=== PATIENT | female | born 1945 | race Caucasian/White ===

== ENCOUNTER 2018-02-22 10:09 | Emergency (ER) | payer MEDICARE, OTHER, SELFPAY ==
[2018-02-22 10:24] VITALS: BP 129/72; PULSE 75; RESP 13; TEMP 36.4; O2SAT 100; BMI 23.5
--- NOTE | 2018-02-22 10:46 | DI.RAD.S_ITS ---
PROCEDURE: XR CHEST 1V INDICATIONS: chest pain TECHNIQUE: One view of the chest was acquired. COMPARISON: [facility], , CHEST 2 VIEW, 03/29/2012, 8:55. FINDINGS: Surgical changes and devices: Cervical fixation hardware is partially visualized and grossly intact. Lungs and pleura: No pleural effusions or pneumothorax. Lungs are clear. Mediastinum: Mediastinal contours appear normal. Heart size is normal. Bones and chest wall: No suspicious bony lesions. Overlying soft tissues appear unremarkable. IMPRESSION: No acute cardiopulmonary findings. Dictated by: Aria Blanca M.D. on 02/22/2018 at 11:18 Approved by: Aria Blanca M.D. on 02/22/2018 at 11:19
--- NOTE | 2018-02-22 10:53 | ED_ITS ---
HPI - Chest Pain General Chief Complaint: Chest Pain Stated Complaint: CHEST PAIN Time Seen by Provider: 02/22/18 10:52 Source: patient Mode of arrival: ambulatory Limitations: no limitations History of Present Illness HPI narrative: 72-year-old female with a history of anxiety and hypothyroidism presents with 1 week of epigastric chest pain that is not going away. It is intermittent and nothing she does including eating, exerting herself, or moving makes the pain worse. Nothing makes the pain better. She takes lansoprazole twice daily and this has not helped her pain. She notes that 5 weeks ago she abruptly stopped her Ativan and her primary care provider has discontinued the medication. She denies associated shortness of breath or nausea. She admits to diaphoresis since she discontinued her Ativan. She has a history of cholecystectomy. No history of pancreatitis. She notes a history of atrial fibrillation that spontaneously resolved and happened years ago after a major surgery on her back. There has been no recurrence. Pain is currently rated at a 2/10. Related Data Home Medications Medication Instructions Recorded Confirmed levothyroxine [Synthroid] 0.05 mg PO QDAY #0 08/31/17 02/22/18 buspirone 15 mg PO BID 02/22/18 02/22/18 duloxetine [Cymbalta] 60 mg PO DAILY 02/22/18 02/22/18 hydroxyzine pamoate 1 dose PO Q8H PRN 02/22/18 02/22/18 lansoprazole [Prevacid] 30 mg PO DAILY 02/22/18 02/22/18 oxycodone-acetaminophen 1 tab PO Q8H PRN MDD 3 02/22/18 02/22/18 zolpidem 1 dose PO BEDTIME 02/22/18 02/22/18 Allergies Allergy/AdvReac Type Severity Reaction Status Date / Time Sulfa (Sulfonamide Allergy Intermediate RASH Unverified 12/28/17 12:58 Antibiotics) [SULFA (SULFONAMIDE ANTIBIOTICS)] Review of Systems Review of Systems All systems reviewed & are unremarkable except as noted in HPI and below Constitutional Denies chills, Denies fever(s), Denies lethargy and Denies weakness Eyes Denies change in vision, Denies eye discharge, Denies irritation and Denies loss of vision ENT Ears, Nose, Mouth, and Throat: Denies change in voice, Denies neck pain and Denies sore throat Cardiovascular Reports chest pain, Reports diaphoresis, Denies irregular heart rhythm, Denies lightheadedness, Denies palpitations, Denies dyspnea, Denies dyspnea on exertion and Denies orthopnea Respiratory Denies cough, Denies dyspnea, Denies dyspnea on exertion and Denies wheezing Gastrointestinal Gastrointestinal: Denies abdominal pain, Denies change in bowel habits, Denies diarrhea, Denies nausea and Denies vomiting Genitourinary Denies hematuria, Denies flank pain, Denies urinary incontinence and Denies urinary urgency Musculoskeletal Denies neck pain Integumentary/Breasts Denies pruritus, Denies erythema, Denies rash and Denies wounds Neurologic Denies confusion, Denies loss of vision and Denies weakness Psychiatric Denies anxiety, Denies confusion, Denies depression, Denies homicidal ideation and Denies suicidal ideation Endocrine Denies palpitations Hematologic/Lymphatic Denies easy bruising Allergic/Immunologic Denies wheezing PFSH Social History Smoking Status: Current every day smoker Exam Initial Vital Signs Initial Vital Signs: Vital Signs Temperature 97.6 F 02/22/18 10:24 Pulse Rate 75 02/22/18 10:24 Respiratory Rate 13 02/22/18 10:24 Blood Pressure 129/72 H 02/22/18 10:24 Pulse Oximetry 100 02/22/18 10:24 Const General: cooperative and well developed Nutritional Appearance: well nourished Orientation: alert, awake, oriented x3 and not confused [facility] Head: normocephalic and atraumatic Ears: external ears normal and TM's normal bilaterally Nose: external nose normal and No nasal discharge Face and sinus: sinuses nontender, face symmetric, no sinus tenderness and No dry mucous membranes Mouth: oral mucosae normal and moist mucous membranes Teeth and gingiva: dentition normal Throat: tonsils normal and uvula midline Eyes General: appearance normal, both eyes and all related structures Eyelids: eyelids normal Conjunctivae: conjunctivae normal Sclera: sclerae normal Pupils: PERRL EOM: EOM intact bilaterally Neck Neck: normal visual inspection, trachea midline, No lymphadenopathy, No midline deformity and No JVD Lymphatic: No lymphedema Chest Chest: normal inspection of the chest Resp Effort & Inspection: normal respiratory effort, able to speak in complete sentences, no respiratory distress and no use of accessory muscles Auscultation: clear to auscultation bilaterally, no rales, no rhonchi and no wheezes Cardio Rate: regular rate Rhythm: regular rhythm Heart Sounds: no click, no gallops, murmur (Mild 2/6 systolic murmur heard best at the left lower sternal border) and no rubs Pulses: normal peripheral pulses GI Inspection: non-distended Palpation: soft, no hepatosplenomegaly, No guarding, No pulsatile mass and No tender Auscultation: normal bowel sounds Back/Spine/Pelvis Back: No CVA tenderness Cervical Spine: cervical ROM normal and No pain with cervical ROM Thoracic/Lumbar Spine: thoracic and lumbar spine normal to inspection Skin General: no rashes or lesions noted, No jaundice and No petechiae Neuro General: alert, oriented x3, gait normal and no focal motor deficits Speech: speech normal Extrem General: full ROM, no clubbing, cyanosis or edema, no pedal edema and no calf tenderness Psych Appearance: well kempt Mental Status: mental status grossly normal Attitude: cooperative Thought Content: normal and suicidality Judgment: judgment good Course Orders Ordered: ED Orders 02/22/18 10:39 Complete Blood Count AUTO DIFF Stat Comprehensive Metabolic Panel Stat Lipase Stat Troponin with CK Cardiac Panel Stat 02/22/18 10:46 XR chest 1V Stat Discontinued Medications Al Hydrox/Mg Hydrox/Simethicone 20 ml/ Lidocaine HCl 15 ml 0 ml PO NOW ONE Stop: 02/22/18 11:29 Last Admin: 02/22/18 11:44 Dose: 35 ml Lorazepam (Ativan) 0.5 mg PO NOW ONE Stop: 02/22/18 11:29 Last Admin: 02/22/18 11:44 Dose: Not Given Vital Signs - 8 hr 02/22/18 10:24 02/22/18 11:09 02/22/18 11:49 Temperature 97.6 F Pulse Rate 75 74 68 Respiratory Rate 13 26 H 16 Blood Pressure 129/72 H Blood Pressure [Right Arm] 126/62 H 124/74 H Pulse Oximetry 100 99 100 MDM - Chest Pain Differential Diagnosis Likely fracture of rib, pneumothorax, stable angina, unstable angina pectoris, atypical chest pain, st elevation myocardial infarction, costochondritis and chest pain Medical Records Data Attestation: I reviewed the patient's medical records. Lab Data Attestation: I reviewed the patient's lab results. Result diagrams: 02/22/18 10:39 02/22/18 10:39 Lab Results 02/22/18 02/22/18 Range/Units 10:39 10:39 WBC 5.1 (4.5-11.0) X10^3/uL RBC 4.15 (4.0-5.2) X10^6/uL Hgb 13.5 (12.0-16.0) g/dL Hct 39.2 (36-46) % MCV 94.6 (80-100) fL MCH 32.5 (26-34) PG MCHC 34.3 (30-36) % RDW 12.7 (11.6-14.8) % Plt Count 294 (150-400) X10^3/uL Neut % (Auto) 65.1 (50-75) % Lymph % (Auto) 24.4 L (25-40) % Fleming % (Auto) 8.0 (3-14) % Eos % (Auto) 1.8 L (2-4) % Baso % (Auto) 0.7 (0-2) % Neut # (Auto) 3300 (2690-7504) /uL Sodium 143 (137-145) mmol/L Potassium 4.0 (3.4-5.1) mmol/L Chloride 105 (98-107) mmol/L Carbon Dioxide 25 (22-32) mmol/L BUN 14 (7-17) mg/dL Creatinine 0.50 L (0.52-1.04) mg/dL Estimated GFR > 60.0 (>60) mL/min BUN/Creatinine Ratio 28.0 H (6-22) Glucose 158 H (80-110) mg/dL Calcium 9.8 (8.4-10.2) mg/dL Total Bilirubin 0.4 (0.2-1.3) mg/dL AST 23 (14-36) IU/L ALT 31 (9-52) IU/L Alkaline Phosphatase 97 (38-126) U/L Total Creatine Kinase 47 (30-135) U/L Troponin I < 0.012 (0.01-0.034) ng/mL Total Protein 7.4 (6.3-8.2) g/dL Albumin 4.4 (3.5-5.0) g/dL Globulin 3.0 (1.7-4.1) g/dL Albumin/Globulin Ratio 1.5 (1.0-2.8) Lipase 38 (23-300) U/L Imaging Data Chest x-ray: Radiologist's impression: PROCEDURE: XR CHEST 1V INDICATIONS: chest pain TECHNIQUE: One view of the chest was acquired. COMPARISON: [facility], , CHEST 2 VIEW, 03/29/2012, 8:55. FINDINGS: Surgical changes and devices: Cervical fixation hardware is partially visualized and grossly intact. Lungs and pleura: No pleural effusions or pneumothorax. Lungs are clear. Mediastinum: Mediastinal contours appear normal. Heart size is normal. Bones and chest wall: No suspicious bony lesions. Overlying soft tissues appear unremarkable. IMPRESSION: No acute cardiopulmonary findings. Dictated by: Aria Blanca M.D. on 02/22/2018 at 11:18 Approved by: Aria Blanca M.D. on 02/22/2018 at 11:19 ECG Data Attestation: I personally reviewed and interpreted this ECG as follows: Prior ECG tracings: available for review Interpretation: EKG performed at 10:23 a.m. shows sinus rhythm with a rate of 74. No ST elevation or depression. No T-wave abnormalities. Normal EKG. No signs of ischemia. MDM Narrative Medical decision making narrative: Her heart score is 3 with 2 points for age and 1 point for a family history of heart disease. She has never been a smoker. Her EKG is normal. Her chest x-ray is also normal. Lipase and LFTs are normal. Troponin is negative and she has had ongoing symptoms for 10 days. Advised her that she needs to see her primary provider and have a stress test arranged to definitively rule out heart conditions. I do not suspect pulmonary embolism as there is no associated shortness of breath, she is not tachycardic or hypoxic. I suspect anxiety may be playing a role as she was recently taken off her benzodiazepine. She is already on an acid oscar, but did find improvement with the GI cocktail. I advised that she could double her acid oscar dose to twice daily. She was not interested in taking the Ativan I offered her here as she was concerned about withdrawing. I stated to her that withdrawal symptoms would not be expected to last for 5 weeks and I suspect she may be dealing with some underlying anxiety. Given her risk factors she is in need of a stress test in follow-up. Discharge Plan Departure Patient Disposition: Home, Self-Care Clinical Impression: Chest pain Instructions: DI for Chest Pain Activity Restrictions/Additional Instructions: Thank you for trusting us with your care today. No dangerous findings were identified in your emergency department evaluation. You should follow up with your primary care provider within 1 week and discuss a stress test and your anxiety. Continue your acid oscar medication and increase to twice daily dosing. Return to the ER for new or worsening symptoms. Prescriptions: No Action levothyroxine [Synthroid] 50 MCG tablet 0.05 mg PO QDAY Qty: 0 RF: 0 oxycodone-acetaminophen 7.5-325 mg Tablet 1 tab PO Q8H MDD 3 PRN (Reason: Pain, Moderate) RF: 0 buspirone 15 mg Tablet 15 mg PO BID RF: 0 lansoprazole [Prevacid] 30 mg Capsule,Delayed Release(Dr/Ec) 30 mg PO DAILY RF: 0 zolpidem 10 mg Tablet 1 dose PO BEDTIME RF: 0 duloxetine [Cymbalta] 60 mg Capsule,Delayed Release(Dr/Ec) 60 mg PO DAILY RF: 0 hydroxyzine pamoate 25 mg Capsule 1 dose PO Q8H PRN (Reason: Nausea) RF: 0
[2018-02-22 10:56] LABS: Add Manual Diff / Slide Review NO; Basophils Percent Auto 0.7 % (0-2); Eosinophils Percent Auto 1.8 % (2-4); Hematocrit 39.2 % (36-46); Hemoglobin 13.5 g/dL (12.0-16.0); Lymphocytes Percent Auto 24.4 % (25-40); Mean Corpuscular HGB Conc 34.3 % (30-36); Mean Corpuscular Hemoglobin 32.5 PG (26-34); Mean Corpuscular Volume 94.6 fL (80-100); Neutrophils Absolute Auto 3300 /uL (3000-5900); Neutrophils Percent Auto 65.1 % (50-75); Platelet Count 294 X10^3/uL (150-400); Red Blood Cell Count 4.15 X10^6/uL (4.0-5.2); Red Cell Distribution Width 12.7 % (11.6-14.8); White Blood Cell Count 5.1 X10^3/uL (4.5-11.0)
[2018-02-22 11:09] VITALS: BP 126/62; PULSE 74; RESP 26; O2SAT 99
[2018-02-22 11:12] LABS: Alanine Aminotransferase 31 IU/L (9-52); Albumin 4.4 g/dL (3.5-5.0); Albumin Globulin Ratio 1.5 (1.0-2.8); Alkaline Phosphatase 97 U/L (38-126); Aspartate Aminotransferase 23 IU/L (14-36); Bilirubin Total 0.4 mg/dL (0.2-1.3); Blood Urea Nitrogen 14 mg/dL (7-17); Calcium 9.8 mg/dL (8.4-10.2); Carbon Dioxide 25 mmol/L (22-32); Chloride 105 mmol/L (98-107); Creatine Kinase 47 U/L (30-135); Estimated Glomerular Filt Rate > 60.0 mL/min (>60); Glucose 158 mg/dL (80-110); HEMOLYSIS < 15 (0-50); Lipase 38 U/L (23-300); Sodium 143 mmol/L (137-145); Total Protein 7.4 g/dL (6.3-8.2)
[2018-02-22 11:33] LABS: Troponin I < 0.012 ng/mL (0.01-0.034)
[2018-02-22] MEDS: MAG HYDROX/ALUMINUM/SIMETH SUS 20 ML, LIDOCAINE VISCOUS 2% 15 ML PO (11:44)
--- NOTE | 2018-02-22 11:44 | PC.NURSE ---
pt refused ativan at this time, pt apologitic, she has changed her mind/
[2018-02-22 11:49] VITALS: BP 124/74; PULSE 68; RESP 16; O2SAT 100
[2018-02-22 12:31] VITALS: BP 110/72; PULSE 69; RESP 16; O2SAT 100
== END 2018-02-22 12:45 | disposition home or self-care (01) ==
PROVIDERS: Emergency Provider Emergency Medicine; PCP Nurse Practitioner
DX: R07.89 Other chest pain (principal)
CPT/HCPCS: 36591; 71045; 80053; 82550; 82553; 83690; 84484; 85025; 93005; 99283; 99285

== ENCOUNTER → 2018-12-08 13:58 | Outpatient (CLI) | payer MEDICARE, OTHER, SELFPAY ==
--- NOTE | 2018-12-08 14:22 | DI.RAD.S_ITS ---
PROCEDURE: XR CHEST 2V INDICATIONS: Cough TECHNIQUE: 2 views of the chest were acquired. COMPARISON: [facility], CR, XR CHEST 1V, 02/22/2018, 10:50. FINDINGS: Surgical changes and devices: Cervical fixation plate. Lungs and pleura: Lungs are clear. No pleural effusions or pneumothorax. Mild hyperexpansion is present suggestive of COPD. Mediastinum: Mediastinal contours are normal. Heart size is normal. Bones and chest wall: No suspicious bony abnormalities. Soft tissues appear unremarkable. IMPRESSION: No acute pulmonary process. Dictated by: Mansi Fregoso M.D. on 12/08/2018 at 14:48 Approved by: Mansi Fregoso M.D. on 12/08/2018 at 14:48
[2018-12-08 14:29] LABS: Influenza A and B by PCR Rapid Negative (Negative)
== END ==
PROVIDERS: PCP Nurse Practitioner; Visit Provider Physician Assistant
DX: R68.89 Other general symptoms and signs (principal); R05 Cough
CPT/HCPCS: 71046; 87400

== ENCOUNTER → 2019-01-10 12:57 | Outpatient (CLI) | payer MEDICARE, OTHER, SELFPAY ==
[2019-01-10 13:56] LABS: Add Manual Diff / Slide Review NO; Basophils Absolute Auto 100 /uL (0-100); Basophils Percent Auto 1.2 % (0-2); Eosinophils Absolute Auto 200 /uL (0-450); Eosinophils Percent Auto 3.8 % (2-4); Hemoglobin 13.6 g/dL (12.0-16.0); Lymphocytes Absolute Auto 1100 /uL (1100-4500); Mean Corpuscular HGB Conc 34.9 % (30-36); Mean Corpuscular Hemoglobin 32.9 PG (26-34); Mean Corpuscular Volume 94.4 fL (80-100); Monocytes Absolute Auto 400 /uL (0-900); Monocytes Percent Auto 8.8 % (3-14); Neutrophils Absolute Auto 2800 /uL (1500-7000); Neutrophils Percent Auto 61.2 % (50-75); Platelet Count 303 X10^3/uL (150-400); Red Blood Cell Count 4.14 X10^6/uL (4.0-5.2); Red Cell Distribution Width 13.7 % (11.6-14.8); White Blood Cell Count 4.6 X10^3/uL (4.5-11.0)
[2019-01-10 14:12] LABS: Hemoglobin A1C% w Est Avg Glu 5.2 % (4.0-6.0)
[2019-01-10 14:29] LABS: Alanine Aminotransferase 16 IU/L (9-52); Albumin 4.3 g/dL (3.5-5.0); Albumin Globulin Ratio 1.7 (1.0-2.8); Alkaline Phosphatase 104 U/L (38-126); Aspartate Aminotransferase 20 IU/L (14-36); BUN Creatinine Ratio 26.7 (6-22); Bilirubin Total 0.2 mg/dL (0.2-1.3); Blood Urea Nitrogen 16 mg/dL (7-17); Calcium 9.5 mg/dL (8.4-10.2); Carbon Dioxide 29 mmol/L (22-32); Chloride 101 mmol/L (98-107); Cholesterol 165 mg/dL (140-199); Estimated Glomerular Filt Rate > 60.0 mL/min (>60); Globulin 2.6 g/dL (1.7-4.1); Glucose 95 mg/dL (80-110); HDL Cholesterol 65 mg/dL (40-60); HEMOLYSIS 20 (0-50); LDL Cholesterol Calculated 82 mg/dL (<100); Potassium 4.9 mmol/L (3.4-5.1); Sodium 138 mmol/L (137-145); Total Protein 6.9 g/dL (6.3-8.2); Triglycerides 90 mg/dL (35-150)
[2019-01-10 14:59] LABS: Thyroid Stimulating Hormone 1.32 uIU/mL (0.47-4.68)
[2019-01-10 20:42] LABS: Vitamin D 25 Hydroxy (D3) 34.5 ng/mL (30.0-100.0)
== END ==
PROVIDERS: PCP Nurse Practitioner; Visit Provider Nurse Practitioner
DX: E55.9 Vitamin D deficiency, unspecified (principal); Z00.00 Encounter for general adult medical examination without abnormal findings; R73.09 Other abnormal glucose
CPT/HCPCS: 36415; 80053; 80061; 82306; 83036; 84443; 85025

== ENCOUNTER → 2019-02-27 12:21 | Outpatient (CLI) | payer MEDICARE, OTHER, SELFPAY | PROVIDERS: PCP Nurse Practitioner; Visit Provider Orthopaedic Surgery | DX: Z01.818 Encounter for other preprocedural examination (principal) | CPT/HCPCS: 93005 ==

== ENCOUNTER 2019-03-28 10:10 | Inpatient (IN) | payer MEDICARE, OTHER, SELFPAY ==
[2019-03-14 12:46] VITALS: BMI 25.9
[2019-03-28] VITALS (13 sets, daily range): BP systolic 113–131; BP diastolic 50–75; PULSE 80–99; RESP 12–18; TEMP 35.9–36.4; O2SAT 90–100; BMI 25.9
--- NOTE | 2019-03-28 | DI.RAD.S_ITS ---
PROCEDURE: XR PELVIS 1-2V INDICATIONS: LEFT HIP TOTAL ANTERIOR TECHNIQUE: Intra-operative view of the pelvis and hip acquired. COMPARISON: [facility], CR, XR PELVIS 1 OR 2VW, 12/15/2016, 13:56. FINDINGS: Bones: Intraoperative devices prior to placement of arthroplasty prostheses are in expected positions. No fractures or suspicious bony lesions. Soft tissues: Overlying surgical retractors are present, along with other intraoperative changes. IMPRESSION: Left hip arthroplasty. Dictated by: Silva Delgado M.D. on 03/28/2019 at 16:34 Approved by: Silva Delgado M.D. on 03/28/2019 at 16:35
--- NOTE | 2019-03-28 06:00 | DI.RAD.S_ITS ---
PROCEDURE: XR HIP W PEL IF DONE LT 2V INDICATIONS: post op MIQUEL TECHNIQUE: AP pelvis and lateral view of the left hip acquired. COMPARISON: [facility], SCAR, XR PELVIS 1-2V, 03/28/2019, 14:47. FINDINGS: Bones: Patient is status post left hip arthroplasty, with hardware components in expected positions. The hip joint appears congruent. The visualized bony structures appear intact. Soft tissues: Overlying postoperative changes are noted. No suspicious soft tissue densities. IMPRESSION: Normal postoperative examination. Dictated by: Gio Stacy M.D. on 03/28/2019 at 16:18 Approved by: Gio Stacy M.D. on 03/28/2019 at 16:19
[2019-03-28] MEDS: VANCOMYCIN 1,000 MG/200 ML PIGGYBACK 200 MG IV (11:33)
[2019-03-28] MEDS: MELOXICAM 7.5 MG TABLET 15 MG PO (11:37)
[2019-03-28] MEDS: PREGABALIN 75 MG CAPSULE PO (11:38)
[2019-03-28] MEDS: ACETAMINOPHEN 325 MG TABLET 975 MG PO ×2 (11:38→21:03)
[2019-03-28] MEDS: LACTATED RINGERS 1,000 ML 42 ML IV (11:39)
--- NOTE | 2019-03-28 12:38 | PM.PREOP ---
Pre-operative Note Interval Note History & Physical reviewed/Exam performed by Physician: Yes Changes to H&P: No
--- NOTE | 2019-03-28 12:41 | P.OP_ITS ---
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 Non-operative management has failed and the patient has requested total hip replacement. The risks, benefits and alternatives to surgery were discussed with the patient prior to proceeding. Risks discussed included, but were not limited to, failure to relieve pain, leg length discrepancy, dislocation, stiffness, infection, nerve damage, deep venous thrombosis, pulmonary embolism, stroke, coma, heart attack, permanent paralysis and , as well as the potential need for eventual revision of the prosth etic. Surgeon: Haylee Young Health Care Specialist: Brielle Lee Anesthesia Type: General and Spinal Operative Notes Findings: Severe left hip arthritis with protrusio, some softening of the acetabular, acceptable stability leg length and offset Closure Type: primary Specimen(s): none sent Prosthetic devices, grafts, tissues, transplants, or devices: Young [employer]hew size 50 R3 cup with 120 mm screw, size 3 standard anthology, 32+ 0 head, 32 by 50 liner Estimated Blood Loss (mL): 250 Blood products transfused: none Procedure in detail: The patient was brought to the operating room. Patient was carefully positioned in the supine position. Time-out was performed and antibiotics were given. Anesthesia was induced. She was positioned in the on the table in order to allow hyperextension of the hip. The left lower extremities was prepped and draped in a standard sterile fashion. An anterior left hip incision was made 1 fingerbreadth lateral to the anterior superior iliac spine and extended distally towards the greater trochanter. Dissection was carried out through skin and subcutaneous tissues. The skin and subcutaneous tissues were carefully injected with Lidocaine with epi. Superficial hemostasis was achieved. The fascia over the tensor fascia radha was defined and incised with a knife. Two Allis clamps were used to grasp the fascia. Tensor fascia radha was retracted laterally. A gelpi retractor was placed. Dissection was carried out down along the neck. The circumflex vessels were carefully identified and cauterized with the Aqua Mantis. There was good visualization of the femoral neck. A Cobra was placed superior to the neck and the gluteus fibers were carefully stripped from that superior aspect of the capsule. A 2nd retractor was placed along the inferior aspect of the neck. The rectus insertion along the capsule was partially released. A 3rd retractor that was then gently placed over the rim of the acetabulum under the rectus. Capsule was carefully incised and released from the intertrochanteric line circumferentially superior to the mid sagittal line and inferiorly to the mid sagittal line until the lesser trochanter was palpable. A tag stitch was placed both in the superior and inferior limb of the capsular insertion. Along the acetabulum capsule was also released up to the mid sagittal 12:00 position. A portion of the labrum was resected. A saw was used to perform an osteotomy at the level of the intertrochanteric line and the junction of the superior femoral neck leaving approximately 1 finger breath of residual inferior neck above the lesser trochanter. A 2nd cut was made along the femoral neck at the base of the head and a napkin ring of neck was removed. Corkscrew was placed in the femoral head and the head was removed. She had a hypertrophied ligamentum teres. Retractors were then repositioned around the acetabulum. Residual labrum was resected and additional osteophytes were removed. A reamer that was 4 mm below the templated size was placed by hand in the acetabulum and it was reamed to centralize the acetabulum. It was then reamed up to 2 under the templated size and fluoroscopy was brought in to confirm the position of the reaming and depth of reaming. I reamed 1 under the anticipated size. A trial cup was placed and noted that it was appropriately sized and fluoroscopy confirmed position and depth. The component was open and inserted without difficulty fluoroscopic imaging was used to confirm that the cup had been adequately seated and was well positioned. A single screw was used to further stabilize the cup. Neutral poly liner was placed. The cup was tested and noted to be stable. Attention was then directed to the femur. The femur was gently hyperextended additional capsular release was performed as needed in order to allow adequate visualization of the proximal femur with elevation of the femur. Patient was placed in a hyperextended slightly adducted position with maximum external rotation. Box osteotome was used to check for any residual neck as well as scl erotic bone along the trochanter. [place] pepper was placed in the femur. Additional broaching was performed. Canal finder was used to determine the alignment of the canal and position. Size 1 broach was placed. The canal was then appropriately broached up to the templated size as long as there was adequate stability of the broach and serial advancement of the broach without excessive impingement. Specific attention was directed at avoiding varus attempting to direct the distal aspect of the broach more anteriorly and avoiding excessive anteversion. Trial reduction showed acceptable range of mo tion, good stability, no posterior impingement, temple of leg length and appropriate lateral shuck. I also hyperflexed the hip and checked that there was no impingement anteriorly and there was good stability with flexion, abduction and internal rotation. Final neutral poly was placed without difficulty. Marcaine and Exparel were injected.. The stem was placed without difficulty. Repeat trial reduction and x-ray showed acceptable overall position, length, and no evidence of the femoral fracture. Final head was placed. Wound was meticulously irrigated with normal saline. The hip was reduced and additional Exparel and Marcaine were injected. The capsule was closed with interrupted nonabsorbable sutures. The fascia of the tensor was closed with interrupted and running Vicryl. No drain was placed. Any tensor fascia radha muscle that appeared to be contused or injured which was a minimal amount was carefully resected. Capsule around the tensor was injected with Exparel and Marcaine. The skin was closed with barbed stitches for the subcutaneous tissue and skin. We also used surgical glue. The wound was dressed sterilely. Brief Betadine soak was also used and was meticulously irrigated with normal saline. Patient was transferred to recovery room in satisfactory condition. Complications: none Condition: stable Disposition: Acute Care Plan for aftercare: The patient will be maintained on a standard total hip replacement protocol with weight bearing as tolerated and anterior hip precautions. The patient will receive Aspirin and sequential compression devices for DVT prophylaxis. The patient will be discharged home when safe for the home environment.
[2019-03-28] MEDS: CEFAZOLIN 2 GM/100 ML FROZ.PIGGY IV ×2 (13:08→21:08)
[2019-03-28] MEDS: BUPIVACAINE 0.25% W/ EPI 30 ML VIAL 60 ML INJ (13:47)
[2019-03-28] MEDS: BUPIVACAINE LIPOSOME 266 MG/20 ML VIAL INJ (13:47)
[2019-03-28] MEDS: POVIDONE-IODINE 15 ML, SODIUM CHLORIDE 0.9% 250 ML TOP (13:48)
[2019-03-28] MEDS: TRANEXAMIC ACID 1,000 MG VIAL 2000 MG INJ ×2 (13:49→16:27)
[2019-03-28] MEDS: LIDOCAINE 1% W/EPI INJ 4 ML INJ (13:53)
--- NOTE | 2019-03-28 14:00 | SUR.OPER ---
patient voided prior to coming to OR
[2019-03-28] MEDS: fentaNYL 100 MCG/2 ML INJ 50 MCG IV ×2 (17:15→17:24)
[2019-03-28] MEDS: LACTATED RINGERS 1,000 ML 125 ML IV (20:41)
[2019-03-28] MEDS: NALOXONE 0.4 MG/ML VIAL 0.1 MG IV (20:45)
[2019-03-28] MEDS: ASPIRIN EC 81 MG TABLET PO (21:04)
[2019-03-28] MEDS: BUSPIRONE 5 MG TABLET 10 MG PO (21:04)
[2019-03-28] MEDS: DOCUSATE 100 MG CAPSULE PO (21:05)
[2019-03-28] MEDS: DICYCLOMINE 10 MG CAPSULE 20 MG PO (21:05)
--- NOTE | 2019-03-28 21:29 | PC.NURSE ---
Addendum entered by Sol Gomez R.N. 03/29/19 00:44: Stacy Beverly RN coordinator to inform this information writer was about to medicate pt with narcan. Orders were DC on NOV, called Dr. Thorne, she came right up to floor and placed orders, this information writer activated the hold Que orders, medicated pt with 1/10 (0.04mg) narcan. ordered 0.4mg narcan to be instilled into a 10ml syringe of NS as to admin 1/10 of medication at a time. Pt became alert and able to keep O2 in high 90's with 2L O2 nc. Pt also able to converse, answer questions and maintain O2 in 90's with 2Lnc. provided pt with cheese and crackers, and milk per request. LFA LR @ 125, SCD's on. 2100 trazadone medication held r/t oversedation. Bed alarm on. Addendum entered by Slo Gomez R.N. 03/28/19 21:34: On arrival from this writers break, pt desating to 60-78% 2L O2, placed on 7L nc and placed canula in mouth since she was mouth breathing, and replaced to nares. HOB semi fowlers and lightly shaking Lt shoulder of pt to awake enough to take breaths. Ox increased to high 80's, called RT and Original Note: 1800- pt arrived to room 213 from PACU via bed. Alert to name and Neftaly who is at bedside. Pt drowsy, but able to make need known. Provided pt with water, 1/2 sandwich, and cran juice. Bed high fowlers and eating sand. Cont O2 monitoring on with SpO2 92-94% 2L nc. Right anterior hip aquacell drsg CDI. CMS+ PP+. denies pain and nausea at this time. LFA SL. Bed alarm on. Awaiting orders.
--- NOTE | 2019-03-28 21:37 | P.PN_ITS ---
Subjective Date Patient Seen: 03/28/19 Time Patient Seen: 21:00 Interval history: Called by RN with concern about postop somnolence in 73 yo female who is s/p anterior approach MIQUEL with spinal/general anesthesia. She received an intrathecal dose of Duramorph intraoperatively; and she was given 100mcg of fentanyl IV for pain in the PACU. She is on continuous O2 Sat monitoring. Upon my arrival she was notably quite sleepy and somewhat slow to arouse, but did respond appropriately. She was on O2 per NC at 2 LPM with saturations >95%. (The RN did report one transient dip in O2 Sat below 70% prior to my arrival). She was given one dose of Narcan 0.04mg by me and was more animated afterward. Intrathecal Narcotic orders were reentered and confirmed. The RN Relay Associate was informed. The patient was stable upon my departure. Exam Vital Signs (past 8 hours): - 03/28/19 17:02 03/28/19 17:06 03/28/19 17:11 Temperature 97.0 F L Pulse Rate 84 85 83 Respiratory Rate 16 12 12 Blood Pressure 124/72 113/66 115/61 Pulse Oximetry 98 95 100 03/28/19 17:22 03/28/19 17:26 03/28/19 17:33 Temperature 97.1 F L Pulse Rate 85 85 83 Respiratory Rate 12 12 12 Blood Pressure 128/50 L 113/75 125/67 Pulse Oximetry 95 93 95 03/28/19 17:45 03/28/19 17:50 03/28/19 18:00 Temperature 97.0 F L 97.0 F L 97.0 F L Pulse Rate 99 H 83 80 Respiratory Rate 14 16 16 Blood Pressure 122/74 122/63 122/60 Pulse Oximetry 99 93 93 03/28/19 18:30 03/28/19 19:00 03/28/19 20:00 Temperature 96.7 F L 97.5 F L Pulse Rate 80 82 86 Respiratory Rate 18 16 Blood Pressure 117/56 L 131/65 125/70 Pulse Oximetry 90 L 99 92 Oxygen Delivery Method Room Air Oxygen Flow Rate 2 Quality VTE Deep Vein Thrombosis/Pulmonary Embolism Present on Admission: No
[2019-03-29 00:30] VITALS: BP 102/54; PULSE 85; RESP 16; TEMP 36.2; O2SAT 97
--- NOTE | 2019-03-29 02:24 | PC.NURSE ---
Sat in the [facility] for approx. 20 mins. was not able to void. Bladder scanned noted 678 ml. I & O cath. done & 700 cc out of dark yellow urine. Pt. denies any pain at this time, will monitor.
[2019-03-29] MEDS: CEFAZOLIN 2 GM/100 ML FROZ.PIGGY IV (04:53)
[2019-03-29] MEDS: LACTATED RINGERS 1,000 ML 125 ML IV (04:55)
[2019-03-29 05:00] VITALS: BP 110/54; PULSE 81; RESP 16; TEMP 36.4; O2SAT 99
--- NOTE | 2019-03-29 06:29 | PC.NURSE ---
Requested to turn off her SCD's for now. Also requested to her sleep this morning & declined to take her 0600 dose of Synthroid states I don't my Thyroid pill this early. Denies any pain all shift, when asked her pain scale she rated her pain @ 1-2/10. Will cont. POC & monitor.
[2019-03-29 06:34] LABS: Hematocrit 31.8 % (36-46); Hemoglobin 10.7 g/dL (12.0-16.0)
[2019-03-29] MEDS: LEVOTHYROXINE 50 MCG TABLET PO (06:57)
[2019-03-29] MEDS: ACETAMINOPHEN 325 MG TABLET 975 MG PO ×3 (08:54→21:50)
[2019-03-29] MEDS: ARIPiprazole 10 MG TABLET 5 MG PO (08:55)
[2019-03-29] MEDS: MELOXICAM 7.5 MG TABLET 15 MG PO (08:56)
[2019-03-29] MEDS: ASPIRIN EC 81 MG TABLET PO ×2 (08:56→21:50)
[2019-03-29] MEDS: BUSPIRONE 5 MG TABLET 10 MG PO ×2 (08:56→21:51)
[2019-03-29] MEDS: DOCUSATE 100 MG CAPSULE PO ×2 (08:56→21:51)
[2019-03-29] MEDS: DICYCLOMINE 10 MG CAPSULE 20 MG PO ×3 (08:56→21:51)
[2019-03-29] MEDS: PARoxetine 20 MG TABLET PO (08:56)
[2019-03-29] MEDS: PANTOPRAZOLE 40 MG TABLET PO (08:57)
[2019-03-29 09:00] VITALS: BP 117/46; PULSE 79; RESP 18; TEMP 36.7; O2SAT 96
--- NOTE | 2019-03-29 09:30 | PT.IIE ---
Current Diagnoses Unilateral primary osteoarthritis, left hip (03/28/19) Surgery Performed Operation Date: 03/28/19 12:00 Actual Procedures p Total Hip Arthroplasty/Anterior Approach(Left) - Haylee Young MD Surgical History (Last Updated 03/14/19 @ 13:23 by Yue Schultz RN) History of lumbar fusion (Acute ~2014) Hx of cholecystectomy (Acute) Hx of ovarian cystectomy (Acute) S/P cervical spinal fusion (Acute ~2015) Medical History (Last Updated 03/14/19 @ 13:23 by Yue Schultz RN) Anxiety (Acute) Arthritis (Acute) DJD (degenerative joint disease) (Acute) Depression (Acute) GERD (gastroesophageal reflux disease) (Acute) H/O: hysterectomy (Acute) Hypothyroidism (Acute) Neuropathy (Acute) Osteoarthritis (Acute) Paroxysmal atrial fibrillation (Acute ~2014) Yeast infection (Acute) Yeast infection of the vagina (Acute) Physical Therapy Inpatient Evaluation/Re-Eval M1 PT/OT-IP Prior Functional Status Start: 03/29/19 13:07 Freq: NEEDED Status: Active Protocol: Document 03/29/19 09:30 AB (Rec: 03/29/19 13:20 AB [id number]) Medical Review Prior Functional Status Medical History Reviewed Yes Communication able to make needs known Mobility and Gait pt stated that she is independent with all mobilities and ambulation without AD Social History Household Members spouse Living Arrangements House Number of Floors (Floors) Two Floors Number of Stairs To Enter/Railing? 4 steps to enter without rails 15 steps to get to bedroom level with R rail ascending Home Environment Standard Height Toilet Tub/Shower Home Equipment Four Wheel Walker Straight Cane Raised Toilet Seat w/Armrests Employment Status Retired Additional Social History Comment pt stated that she has an old fashioned claw bath tub and a shower chair will not fit in and cannot put a grab bar on it M2 PT-IP Current Condition Start: 03/29/19 13:07 Freq: NEEDED Status: Active Protocol: Document 03/29/19 09:30 AB (Rec: 03/29/19 13:20 AB [id number]) Physical Therapy Current Condition Current Condition Evaluation Date 03/29/19 Treatment Diagnosis s/p L MIQUEL anterior approach; difficulty in walking Onset Date 03/28/19 Precautions Anterior Hip Precautions No Hip Extension No Hip External Rotation Weight Bearing Status Weight Bearing Status Weight Bear as Tolerated M3 PT-IP Subjective Start: 03/29/19 13:07 Freq: NEEDED Status: Active Protocol: Document 03/29/19 09:30 AB (Rec: 03/29/19 13:20 AB [id number]) Subjective Physical Therapy Visit Type Type Initial Evaluation Visit Start Time 09:30 Visit Stop Time 10:10 Total Visit Minutes 40 Number of MID LEVEL PROJECT MANAGER Visits 0 Physical Therapy Visit Comments Patient Comments pt agreeable to do PT Therapy Pain Assessment Pain When Pain Assessed During Mobility Pain Present Pain Present Pain Reported Location Left Hip Intensity 2 Pain Management Techniques Re-positioning Timing of Activity with Medications M4 PT-IP Mobility and Gait Start: 03/29/19 13:07 Freq: NEEDED Status: Active Protocol: Document 03/29/19 09:30 AB (Rec: 03/29/19 13:20 AB [id number]) PT-Bed Mobility Assessment Rolling Level of Assist Standby Assistance PT-Transfer Assessment Sit to and From Stand Sit to and from Stand Minimal Assistance 1 Person Assistance Use of Upper Extremities Equipment Transfer Assistive Device Gait Belt Front Wheeled Walker Orthotic/Prosthetic Devices or Brace: No Transfers Transfer Destination Toilet Transfer Technique pt ambulated using FWW Transfer Ability Level of Assist Minimal Assistance 1 Person Assistance Use of Upper Extremities Gait Assessment Gait Gait Assistance Required: Minimum Assistance Distance (Feet) 12 Able to Maintain Weight Bearing Status Yes During Gait Assistive Devices Assistive Device Gait Belt Front Wheeled Walker Orthotic/Prosthetic Devices or Brace: No Gait Deviations General Gait Pattern Antalgic Decreased Stride Length Decreased Feet Clearance Factors Limiting Gait Function Factors Limiting Gait Function Decreased Strength Pain Poor Balance Poor Safety Awareness Comments Gait Comments pt requested to use the toilet and completed ambulation using FWW min A and cues. pt requires cues for techniques to maintain hip precautions PT-Balance Assessment Sitting Balance and Reactions Static Sitting Balance Ability Good Dynamic Sitting Balance Ability Good M5 PT-IP Objective Assessments Start: 03/29/19 13:07 Freq: NEEDED Status: Active Protocol: Document 03/29/19 09:30 AB (Rec: 03/29/19 13:20 AB [id number]) Orientation Orientation/Cognition Level of Alertness Alert Orientation Name Day of Week Place Situation Language Function Ability Hard of Hearing Safety Awareness Decreased Safety Awareness Memory Description Short Term Impaired Gross Range of Motion Lower Extremity ROM Assessment Within Functional Limits Strength Lower Extremity Strength Assessment Left Impaired Hip 3-/5 Knee 3+/5 Coordination Assessment Gross Coordination Gross Coordination WNL Sensation Assessment Sensation Gross Sensation WNL Muscle Tone Muscle Tone WNL Yes M6 PT-IP Treatment Start: 03/29/19 13:07 Freq: NEEDED Status: Active Protocol: Document 03/29/19 09:30 AB (Rec: 03/29/19 13:20 AB [id number]) Physical Therapy Treatment Exercises Exercises Quad Sets Heel Slides Education Education Provided Precautions Weight Bearing Status Post-Op Packet Safety M7 PT-IP Assessment and Plan Start: 03/29/19 13:07 Freq: NEEDED Status: Active Protocol: Document 03/29/19 09:30 AB (Rec: 03/29/19 13:20 AB [id number]) PT Summary Assessment and Plan Potential Rehabilitation Potential Good Status of Condition at Evaluation Stable Summary Impairments Pain ROM Strength Balance Coordination Sensation Tone Cognition Bed Mobility Transfers Gait Activity Tolerance Assessment Summary pt requiring min A for mobility. pt plans to go home with spouse to assist her. Caregiver training set up at 2pm today. d/c plan depending on caregiver training and stair training . pt stated that she is set up for outpt PT. Goals Bed Mobility Goal Independent Transfer Goal Independent Front Wheeled Walker Four Wheeled Walker Gait Goal Independent Front Wheel Walker Four Wheel Walker Gait Distance 200 Other Goals up/down 4 steps without rails min A up/down 15 steps with R rail ascending CGA Days to Meet Goals 5 Frequency of Treatment Frequency Of Treatment Twice a Day Treatment Plan Physical Therapy Treatment Plan Bed Mobility Training Transfer Training Gait Training Therapeutic Exercise Balance Retraining Post Op Education Discharge Planning Hot or Cold Pack Neuromuscular Re-ed Coordination Retraining Manual Therapy Other Recommendations and Next Treatment caregiver training 03/29 thurs: Focus 2 pm Recommendations To Nursing Amount of Assist Needed 1 Person Assist Discharge Recommendations PT Discharge Recommendations Home with Assistance Outpatient PT Equipment Needed for Home Before FWW if pt is not safe with 4WW Discharge
--- NOTE | 2019-03-29 09:50 | PM.PNPO.1 ---
Subjective Date Patient Seen: 03/29/19 Time Patient Seen: 09:51 Interval history: Pain mild. No fever chills. No nausea vomiting. She has not worked with physical therapy yet. Her 's home to assist her when discharged. Exam Vital Signs (past 8 hours): - 03/29/19 05:00 03/29/19 09:00 Temperature 97.5 F L 98.1 F Pulse Rate 81 79 Respiratory Rate 16 18 Blood Pressure 110/54 L 117/46 L Pulse Oximetry 99 96 Oxygen Delivery Method Nasal Cannula Oxygen Flow Rate 2 Narrative Exam Narrative: Pleasant 73-year-old female resting comfortably in bed in no apparent distress. Left hip dressing is clean, dry and intact. Motor function is intact distally. Sensation grossly intact to light touch. Objective Labs Result Diagrams: 03/29/19 05:50 Labs: Laboratory Results - last 24 hr 03/29/19 05:50 Hgb 10.7 L Hct 31.8 L Assessment & Plan Post-op Postoperative Procedures Operation Date: 03/28/19 12:00 Actual Procedures Side Surgeon p Total Hip Arthroplasty/Anterior Approach Left Haylee Young MD Postop day 1 status post left total hip arthroplasty, anterior approach. Mobilize with physical therapy. Anterior hip precautions. Patient has 14 steps in her home. Discharge 1-2 days. Quality VTE Deep Vein Thrombosis/Pulmonary Embolism Present on Admission: No
--- NOTE | 2019-03-29 13:56 | CM.DANOTE ---
DCP: Case received, EMR reviewed and met with patient. Introduced self and role. Was able to converse with patient and obtain baseline health information to complete DCP assessment. Was able to complete assessment with information currently available. Patient is a 73 year old female who admitted yesterday morning to the care of the orthopedic team. PCP: Dr. Montejo. Payer: confirmed: Medicare/[facility]. Patient came to the hospital for surgical procedure. She had L. Total Hip Arthroplasty. She has history of chronic hip pain. Met with patient in her room. She was expecting to work with physical therapy shortly. She lives here in [place] with her spouse, Neftaly. Stated, my is not always that much of a help, but I have some friends that can help out as well. Discussed possible home health, but will depend upon how she does with physical therapy. P: DCP to continue to follow closely, and will collaborate with the therapy team in her discharge planning. Tena Disla RN/Information Security Architect
--- NOTE | 2019-03-29 14:05 | PT.IPTN ---
Current Diagnoses Unilateral primary osteoarthritis, left hip (03/28/19) Surgery Performed Operation Date: 03/28/19 12:00 Actual Procedures p Total Hip Arthroplasty/Anterior Approach(Left) - Haylee Young MD Physical Therapy Treatment Note M2 PT-IP Current Condition Start: 03/29/19 13:07 Freq: NEEDED Status: Active Protocol: Document 03/29/19 09:30 AB (Rec: 03/29/19 13:20 AB [id number]) Physical Therapy Current Condition Current Condition Evaluation Date 03/29/19 Treatment Diagnosis s/p L MIQUEL anterior approach; difficulty in walking Onset Date 03/28/19 Precautions Anterior Hip Precautions No Hip Extension No Hip External Rotation Weight Bearing Status Weight Bearing Status Weight Bear as Tolerated M3 PT-IP Subjective Start: 03/29/19 13:07 Freq: NEEDED Status: Active Protocol: Document 03/29/19 14:05 AB (Rec: 03/29/19 17:27 AB [id number]) Subjective Physical Therapy Visit Type Type Treatment Note Visit Start Time 14:05 Visit Stop Time 15:05 Total Visit Minutes 60 Number of PIG CONVEYOR OPERATOR Visits 0 Physical Therapy Visit Comments Patient Comments pt agreeable to do PT Therapy Pain Assessment Pain When Pain Assessed At Rest Pain Present Pain Present Pain Reported Location Left Hip Intensity 2 Scale Used Numeric (1 - 10) Pain Management Techniques Apply Cold Re-positioning Timing of Activity with Medications M4 PT-IP Mobility and Gait Start: 03/29/19 13:07 Freq: NEEDED Status: Active Protocol: Document 03/29/19 14:05 AB (Rec: 03/29/19 17:27 AB [id number]) PT-Bed Mobility Assessment Supine to Sit Supine to Sit Standby Assistance PT-Transfer Assessment Sit to and From Stand Sit to and from Stand Contact Guard Assistance Equipment Transfer Assistive Device Gait Belt Front Wheeled Walker Orthotic/Prosthetic Devices or Brace: No Comments Mobility Comments caregiver training conducted. pt's spouse present for caregiver training. educated spouse on pt's hip precautions . showed spouse on how to use safety belt and was able to don on pt safely; also showed spouse on how to assist pt with bed mobility and transfers. pt's spouse assisted pt out of bed and ambulation in room using FWW. spouse was able to assist pt safely Gait Assessment Gait Gait Assistance Required: Contact Guard Assist Distance (Feet) 100 Able to Maintain Weight Bearing Status Yes During Gait Assistive Devices Assistive Device Gait Belt 4 Wheeled Walker Orthotic/Prosthetic Devices or Brace: No Gait Deviations General Gait Pattern Antalgic Narrow Based Gait Factors Limiting Gait Function Factors Limiting Gait Function Decreased Activity Tolerance Decreased Strength Difficulty Following Directions Limited Range of Motion Pain Poor Balance Poor Safety Awareness Comments Gait Comments pt has 4WW at home. educated pt on how to use 4WW and to lock/unlock. pt ambulated using 4WW CGA and cues ~ 30 ft then had pt's spouse to assist pt and pt was able to walk farther. pt requires occasional cues to maintain hip precautions and for safety and spouse was able to cue pt . Stair Climbing Assessment Evaluation Level of Assist On Stairs Minimal Assistance Devices Stair Climbing Assistive Devices Straight Cane Right Railing Technique/Endurance Stair Climbing Direction Ascend and Descend Stair Climbing Technique Step to Step Number of Steps Climbed 3 Stair Climbing Set # Repetitions (reps) 2 Comments Stair Climbing Comments pt and spouse educated on how to do steps using SPC and BRAIDER SETTER. pt completed with spouse assisited. pt also completed up/down steps using R rail ascending requiring min A and cues. spouse stated that he knows how to assist her. M5 PT-IP Objective Assessments Start: 03/29/19 13:07 Freq: NEEDED Status: Active Protocol: Document 03/29/19 09:30 AB (Rec: 03/29/19 13:20 AB [id number]) Orientation Orientation/Cognition Level of Alertness Alert Orientation Name Day of Week Place Situation Language Function Ability Hard of Hearing Safety Awareness Decreased Safety Awareness Memory Description Short Term Impaired Gross Range of Motion Lower Extremity ROM Assessment Within Functional Limits Strength Lower Extremity Strength Assessment Left Impaired Hip 3-/5 Knee 3+/5 Coordination Assessment Gross Coordination Gross Coordination WNL Sensation Assessment Sensation Gross Sensation WNL Muscle Tone Muscle Tone WNL Yes M6 PT-IP Treatment Start: 03/29/19 13:07 Freq: NEEDED Status: Active Protocol: Document 03/29/19 14:05 AB (Rec: 03/29/19 17:27 AB [id number]) Physical Therapy Treatment Education Education Provided Precautions Weight Bearing Status Safety M7 PT-IP Assessment and Plan Start: 03/29/19 13:07 Freq: NEEDED Status: Active Protocol: Document 03/29/19 14:05 AB (Rec: 03/29/19 17:27 AB [id number]) PT Summary Assessment and Plan Potential Rehabilitation Potential Good Summary Impairments Pain ROM Strength Balance Coordination Sensation Tone Cognition Bed Mobility Transfers Gait Activity Tolerance Progress Towards Goals Progressing Toward Goals Assessment Summary Caregiver training conducted and spouse was able to safely assist pt. pt continues to require cues and has confusion affecting safety awareness. pt may go home when medically stable. Goals Bed Mobility Goal Independent Transfer Goal Independent Front Wheeled Walker Four Wheeled Walker Gait Goal Independent Front Wheel Walker Four Wheel Walker Gait Distance 200 Other Goals up/down 4 steps without rails min A up/down 15 steps with R rail ascending CGA Days to Meet Goals 5 Frequency of Treatment Frequency Of Treatment Twice a Day Treatment Plan Physical Therapy Treatment Plan Bed Mobility Training Transfer Training Gait Training Therapeutic Exercise Balance Retraining Post Op Education Discharge Planning Hot or Cold Pack Neuromuscular Re-ed Coordination Retraining Manual Therapy Other Recommendations and Next Treatment caregiver training 03/29 thurs: Focus 2 pm Recommendations To Nursing Amount of Assist Needed 1 Person Assist Discharge Recommendations PT Discharge Recommendations Home with Assistance Outpatient PT
[2019-03-29 15:40] VITALS: BP 103/55; PULSE 79; RESP 18; TEMP 36.8; O2SAT 97
[2019-03-29 19:40] VITALS: BP 110/51; PULSE 76; RESP 18; TEMP 36.8; O2SAT 98
[2019-03-29] MEDS: TRAZODONE 100 MG TABLET 200 MG PO (21:51)
[2019-03-29 23:53] VITALS: BP 118/57; PULSE 77; RESP 16; TEMP 36.9; O2SAT 96
[2019-03-30] MEDS: hydrOXYzine pamoate 25 MG CAPSULE PO (00:01)
--- NOTE | 2019-03-30 00:12 | PC.NURSE ---
Addendum entered by Latha Gutierres R.N. 03/30/19 06:52: Complaining of 4/10 left hip pain and requesting Tylenol; medicated early with scheduled Tylenol and ice pack applied. Addendum entered by Latha Gutierres R.N. 03/30/19 01:28: Found getting out of bed without calling for assistance; reinforced need to wait for staff before getting out of bed. States pain is still 3/10 and unable to sleep because of it; medicated with Oxycodone. Original Note: Patient is alert and oriented. Breath sounds CTA with RA sat of 96%. HRR. Denies nausea. BT present and is passing flatus. Denies dysuria but has chronic frequency/urgency but no incontinence. Able to turn self in bed and is up to BR with walker and SBA. Dressing to left hip is CDI. Complains of 3/10 pain so medicated with Vistaril and ice applied. CMS is intact. Refuses SCD's despite information regarding DVT; verbalizes understanding and agrees to ankle wave when awake. Fall risk score is high and bed alarm is activated.
[2019-03-30] MEDS: OXYCODONE IR 5 MG TABLET PO ×3 (01:26→10:16)
[2019-03-30] MEDS: LEVOTHYROXINE 50 MCG TABLET PO (06:48)
[2019-03-30] MEDS: ACETAMINOPHEN 325 MG TABLET 975 MG PO (06:48)
[2019-03-30] MEDS: BUSPIRONE 5 MG TABLET 10 MG PO (07:49)
[2019-03-30] MEDS: DICYCLOMINE 10 MG CAPSULE 20 MG PO (07:49)
[2019-03-30] MEDS: MELOXICAM 7.5 MG TABLET 15 MG PO (07:49)
[2019-03-30 07:50] VITALS: BP 137/77; PULSE 84; RESP 16; TEMP 36.9; O2SAT 97
[2019-03-30] MEDS: ASPIRIN EC 81 MG TABLET PO (07:50)
[2019-03-30] MEDS: ARIPiprazole 10 MG TABLET 5 MG PO (07:50)
[2019-03-30] MEDS: PANTOPRAZOLE 40 MG TABLET PO (07:50)
[2019-03-30] MEDS: DOCUSATE 100 MG CAPSULE PO (07:50)
[2019-03-30] MEDS: PARoxetine 20 MG TABLET PO (07:51)
[2019-03-30] MEDS: SODIUM CHLORIDE 0.9% FLUSH 10 ML IV (07:51)
[2019-03-30] MEDS: KETOROLAC 15 MG/ML VIAL 10 MG IV (10:15)
--- NOTE | 2019-03-30 10:50 | P.DS_ITS ---
History of Present Illness Date Patient Seen: 03/30/19 Time Patient Seen: 10:48 Chief complaint: [id number] Narrative: Please see HPI previously recorded in the chart. Discharge Providers Date of admission: 03/28/19 10:10 Discharge Date: 03/30/19 Primary care physician: ZEN He Consults: 03/28/19 06:00 Consult to Anesthesiology Routine Comment: Consulting Provider: Anesthesiologist Reason for consultation: Regional block for post operative pain control 03/28/19 18:00 Consult to Discharge Planning Routine Comment: Consult to Physical Therapy Evaluate & Treat Comment: Physician Instructions: post op MIQUEL protocol Consult to Respiratory Therapy Evaluate & Treat Comment: Physician Instructions: Evaluate and treat Discharge provider: Freda Ramos PA-C Summary Discharge Diagnosis: s/p left anterior hip arthroplasty Hospital Course: The patient has had progressively worsening left hip pain with radiographic changes consistent with arthritis. Non-operative management has fa iled and the patient has requested total hip replacement. The risks, benefits and alternatives to surgery were discussed with the patient prior to proceeding. Risks discussed included, but were not limited to, failure to relieve pain, leg length discrepancy, dislocation, stiffness, infection, nerve damage, deep venous thrombosis, pulmonary embolism, stroke, coma, heart attack, permanent paralysis and , as well as the potential need for eventual revision of the prosthetic. After informed consent was obtained patient was taken to the operating room to undergo a left anterior total hip arthroplasty with Dr. Young which she tolerated well with no complaints. She did require administration of Narcan due to somnelence and decreased respiratory rate in PACU. After she was taken [facility] where she has been progressing well post operatively. She has been mobilizing with PT. Pain has been well controlled with oxycodone and Tylenol. She is voiding and tolerating a diet. She has a good support system at home. Medically stable for discharge to home, likely discharge today if cleared by physical therapy. Status at Discharge Cognitive/behavioral status at discharge: oriented Functional status at discharge: uses cane/walker Overall status at discharge: patient is progressing back to baseline Exam Vital Signs (past 8 hours): - 03/30/19 07:50 Temperature 98.4 F Pulse Rate 84 Respiratory Rate 16 Blood Pressure 137/77 Pulse Oximetry 97 Oxygen Delivery Method Room Air Oxygen Flow Rate 0 Narrative Exam Narrative: 73 year old female resting comfortably in bed, in no acute distress. Alert and oriented. Dressing in place over hip is clean, dry, and intact. Intact distal motor function. SILT. Palpable pedal pulse. Soft, compressible calves bilaterally. Objective Labs Result Diagrams: 03/29/19 05:50 Discharge Plan Discharge Plan Patient Disposition: Home Discharge comment: Home after cleared by PT Discharge Med Rec/Prescriptions Prescriptions: New aspirin 81 mg Tablet,Delayed Release (Dr/Ec) 81 mg PO BID Qty: 60 RF: 0 docusate sodium [DOK] 100 mg Capsule 100 mg PO BID Qty: 60 RF: 0 oxycodone 5 mg Tablet 5 mg PO Q4-6H PRN (Reason: Pain, Moderate (4-6)) Qty: 1 RF: 0 ibuprofen 400 mg tablet 800 mg PO TID PRN (Reason: pain) Qty: 40 RF: 0 Continued levothyroxine [Synthroid] 50 MCG tablet 0.05 mg PO QDAY Qty: 0 RF: 0 buspirone 15 mg Tablet 10 mg PO BID RF: 0 lansoprazole [Prevacid] 30 mg Capsule,Delayed Release(Dr/Ec) 30 mg PO DAILY RF: 0 hydroxyzine pamoate 25 mg Capsule 1 dose PO Q8H PRN (Reason: Nausea) RF: 0 acetaminophen [Tylenol Extra Strength] 500 mg Tablet 1,000 mg PO TID RF: 0 trazodone 100 mg Tablet 200 mg PO BEDTIME RF: 0 dicyclomine 20 mg Tablet 20 mg PO TID RF: 0 paroxetine HCl 20 mg Tablet 20 mg PO DAILY RF: 0 aripiprazole [Abilify] 5 mg Tablet 5 mg PO DAILY RF: 0 Discontinued meloxicam 15 mg Tablet 15 mg PO DAILY RF: 0 Follow up/Referrals: Haylee Young MD [Physician] - Provider Discharge Instructions Diet: Diet as Tolerated Activity: Weight bear as tolerated. Use walker or cane for support. Anterior hip precautions. Cold/Heat Therapy: Apply ice packs as needed. Skin/Wound/Dressing Care Report to your healthcare provider any signs of infection, such as:: chills, fever, night sweats, unusual drainage and unusual redness Dressing: Leave dressing in place, it will be removed at two week visit. Call the office if dressing becomes saturated. Visit Report/Discharge Packet Instructions: DI for Hip Replacement Discharge Data Primary Care Provider: Macy Montejo Attending Provider: Haylee Young Admit Date/Time: 03/28/19 10:10 Quality VTE Deep Vein Thrombosis/Pulmonary Embolism Present on Admission: No
--- NOTE | 2019-03-30 11:40 | PT.IPTN ---
Current Diagnoses Unilateral primary osteoarthritis, left hip (03/28/19) Surgery Performed Operation Date: 03/28/19 12:00 Actual Procedures p Total Hip Arthroplasty/Anterior Approach(Left) - Haylee Young MD Physical Therapy Treatment Note M2 PT-IP Current Condition Start: 03/29/19 13:07 Freq: NEEDED Status: Active Protocol: Document 03/29/19 09:30 AB (Rec: 03/29/19 13:20 AB [id number]) Physical Therapy Current Condition Current Condition Evaluation Date 03/29/19 Treatment Diagnosis s/p L MIQUEL anterior approach; difficulty in walking Onset Date 03/28/19 Precautions Anterior Hip Precautions No Hip Extension No Hip External Rotation Weight Bearing Status Weight Bearing Status Weight Bear as Tolerated M3 PT-IP Subjective Start: 03/29/19 13:07 Freq: NEEDED Status: Active Protocol: Document 03/30/19 11:40 GGD (Rec: 03/30/19 12:21 GGD [id number]) Subjective Physical Therapy Visit Type Type Treatment Note Visit Start Time 11:10 Visit Stop Time 11:40 Total Visit Minutes 30 Number of FINANCE ANALYST Visits 1 Physical Therapy Visit Comments Patient Comments Pt not sure she can do the stairs. Therapy Pain Assessment Pain When Pain Assessed At Rest Pain Present Pain Present Pain Reported Location Left Hip Intensity 2 Scale Used Numeric (1 - 10) Pain Management Techniques Apply Cold Re-positioning Timing of Activity with Medications M4 PT-IP Mobility and Gait Start: 03/29/19 13:07 Freq: NEEDED Status: Active Protocol: Document 03/30/19 11:40 GGD (Rec: 03/30/19 12:21 GGD [id number]) PT-Bed Mobility Assessment Sit to Supine Sit to Supine Contact Guard Assistance Scooting Scooting to Edge of Bed Standby Assistance PT-Transfer Assessment Sit to and From Stand Sit to and from Stand Contact Guard Assistance Equipment Transfer Assistive Device Gait Belt Front Wheeled Walker Orthotic/Prosthetic Devices or Brace: No Transfers Transfer Destination Bed Wheelchair Transfer Ability Level of Assist Standby Assistance Use of Upper Extremities Gait Assessment Gait Gait Assistance Required: Contact Guard Assist Distance (Feet) 150 Able to Maintain Weight Bearing Status Yes During Gait Assistive Devices Assistive Device Gait Belt 4 Wheeled Walker Orthotic/Prosthetic Devices or Brace: No Gait Deviations General Gait Pattern Antalgic Narrow Based Gait Factors Limiting Gait Function Factors Limiting Gait Function Decreased Activity Tolerance Decreased Strength Difficulty Following Directions Limited Range of Motion Pain Poor Balance Poor Safety Awareness Stair Climbing Assessment Evaluation Level of Assist On Stairs Standby Assistance Contact Guard Assistance Devices Stair Climbing Assistive Devices Right Railing Technique/Endurance Stair Climbing Direction Ascend and Descend Stair Climbing Technique Step to Step Number of Steps Climbed 3 Stair Climbing Set # Repetitions (reps) 3 M5 PT-IP Objective Assessments Start: 03/29/19 13:07 Freq: NEEDED Status: Active Protocol: Document 03/29/19 09:30 AB (Rec: 03/29/19 13:20 AB [id number]) Orientation Orientation/Cognition Level of Alertness Alert Orientation Name Day of Week Place Situation Language Function Ability Hard of Hearing Safety Awareness Decreased Safety Awareness Memory Description Short Term Impaired Gross Range of Motion Lower Extremity ROM Assessment Within Functional Limits Strength Lower Extremity Strength Assessment Left Impaired Hip 3-/5 Knee 3+/5 Coordination Assessment Gross Coordination Gross Coordination WNL Sensation Assessment Sensation Gross Sensation WNL Muscle Tone Muscle Tone WNL Yes M6 PT-IP Treatment Start: 03/29/19 13:07 Freq: NEEDED Status: Active Protocol: Document 03/30/19 11:40 GGD (Rec: 03/30/19 12:21 GGD [id number]) Physical Therapy Treatment Exercises Exercises Ankle Pumps Gluteal Sets Quad Sets Heel Slides Education Education Provided Precautions M7 PT-IP Assessment and Plan Start: 03/29/19 13:07 Freq: NEEDED Status: Active Protocol: Document 03/30/19 11:40 GGD (Rec: 03/30/19 12:21 GGD [id number]) PT Summary Assessment and Plan Summary Assessment Summary Pt improving with mobility. She able to increase gait distance. She needed less assist with stair mobility.She is safe for home D/C when medically stable. Frequency of Treatment Frequency Of Treatment Twice a Day Treatment Plan Physical Therapy Treatment Plan Bed Mobility Training Transfer Training Gait Training Therapeutic Exercise Balance Retraining Post Op Education Discharge Planning Hot or Cold Pack Neuromuscular Re-ed Coordination Retraining Manual Therapy Other Recommendations and Next Treatment . Focus Recommendations To Nursing Amount of Assist Needed 1 Person Assist Discharge Recommendations PT Discharge Recommendations Home with Assistance Home Health
--- NOTE | 2019-03-30 14:07 | PC.NURSE ---
Pt dressed and ready for discharge home with Spouse. Pt IV has been removed. Discharge reviewed with Pt and Ana ROBERSON. Items discussed: d/c meds, time of last dose, s/s of infection, stroke education, and follow up. Pt denied further questions and was taken out to POV with Spouse and all belongings.
--- NOTE | 2019-03-30 15:01 | CM.DPNOTE ---
Addendum entered by GISELA Soto 04/01/19 08:47: HH f/u confirmed w/ Karishma at [facility] Original Note: DC Note: According to DA [place], pt requesting HH upon DC today. Met w/pt and discussed HH referral. Pt requests PT/OT and Bath aid, no agency preference. Garima, Business Librarian, faxed [facility] this referral w/order by KALINA Harry and signed F2F by Dr Young, referral included clinical docs and face sheet. P: [facility] GISELA Soto
== END 2019-03-30 14:12 | disposition home health service (06) | DRG 470 ==
PROVIDERS: Admitting Provider Orthopaedic Surgery; PCP Nurse Practitioner; Visit Provider Orthopaedic Surgery
PROC: 0SRB02Z Replacement of Left Hip Joint with Metal on Polyethylene Synthetic Substitute, Open Approach (ICD-10-PCS; CPT 27130; principal; 2019-03-28 12:00)
DX: M16.12 Unilateral primary osteoarthritis, left hip (principal); R40.0 Somnolence; R09.02 Hypoxemia; F32.9 Major depressive disorder, single episode, unspecified; E03.9 Hypothyroidism, unspecified; M24.7 Protrusio acetabuli
CPT/HCPCS: 36415; 72170; 73502; 76000; 85014; 85018; 97116; 97161; 97530; C1776; C9290; J0690; J1100; J1885; J2250; J2274; J2310; J2704; J3010

== ENCOUNTER → 2019-05-03 13:48 | Outpatient (CLI) | payer MEDICARE, OTHER, SELFPAY ==
[2019-03-28 18:01] VITALS: BMI 25.9
[2019-05-03 15:03] LABS: Alanine Aminotransferase 15 IU/L (9-52); Albumin 4.3 g/dL (3.5-5.0); Albumin Globulin Ratio 1.5 (1.0-2.8); Alkaline Phosphatase 118 U/L (38-126); Aspartate Aminotransferase 19 IU/L (14-36); Bilirubin Total 0.5 mg/dL (0.2-1.3); Blood Urea Nitrogen 16 mg/dL (7-17); Calcium 9.6 mg/dL (8.4-10.2); Carbon Dioxide 26 mmol/L (22-32); Chloride 101 mmol/L (98-107); Estimated Glomerular Filt Rate > 60.0 mL/min (>60); Globulin 2.9 g/dL (1.7-4.1); Glucose 88 mg/dL (80-110); HEMOLYSIS < 15 (0-50); Potassium 4.5 mmol/L (3.4-5.1); Sodium 138 mmol/L (137-145); Total Protein 7.2 g/dL (6.3-8.2)
== END ==
PROVIDERS: PCP Nurse Practitioner; Visit Provider Nurse Practitioner
DX: B35.1 Tinea unguium (principal)
CPT/HCPCS: 36415; 80053

== ENCOUNTER → 2019-05-10 13:50 | Outpatient (CLI) | payer MEDICARE, OTHER, SELFPAY ==
[2019-03-28 18:01] VITALS: BMI 25.9
--- NOTE | 2019-05-10 13:55 | DI.CT.S_ITS ---
PROCEDURE: CT ORBIT BI WO CON INDICATIONS: Right eye injury,initial encounter TECHNIQUE: Noncontrast 2.5 mm axial images acquired through the orbits, with coronal and sagittal reformats. For radiation dose reduction, the following was used: automated exposure control, adjustment of mA and/or kV according to patient size. COMPARISON: None. FINDINGS: Image quality: Excellent. Orbits: Globes are symmetrical. No metallic foreign bodies. The optic nerves are normal in size. No retrobulbar masses or fat abnormalities. The extra-ocular muscles are normal and symmetrical in appearance. Lacrimal glands are normal in size. Optic chiasm is normal. Mild periorbital edema on the right. Intracranial: Visualized portions of the cerebral hemispheres, brainstem, and spinal cord are normal. Bones and sinuses: Visualized calvarium and facial bones appear intact. Visualized sinuses and mastoids are clear. IMPRESSION: Periorbital edema is present on the right, no underlying fracture is found. The globe and retrobulbar soft tissues appear normal. Dictated by: Fareed Martinez M.D. on 05/10/2019 at 14:42 Approved by: Fareed Martinez M.D. on 05/10/2019 at 14:44
== END ==
PROVIDERS: PCP Nurse Practitioner; Visit Provider Nurse Practitioner
DX: S05.91XA Unspecified injury of right eye and orbit, initial encounter (principal); R60.0 Localized edema
CPT/HCPCS: 70480

== ENCOUNTER → 2020-12-01 13:30 | Outpatient (CLI) | payer MEDICARE, SELFPAY ==
[2020-11-28 14:13] VITALS: BMI 25.9
[2020-12-01] MEDS: COVID-19 VACC, Ad26(JANSSEN)/PF 0.5 ML IM (13:45)
== END ==
PROVIDERS: PCP Nurse Practitioner; Visit Provider Internal Medicine
DX: Z23 Encounter for immunization (principal)
CPT/HCPCS: 0031A; 91303

== ENCOUNTER → 2021-04-30 12:51 | Outpatient (CLI) | payer OTHER, SELFPAY ==
[2020-11-28 14:13] VITALS: BMI 25.9
--- NOTE | 2021-04-30 12:58 | DI.CT.S_ITS ---
PROCEDURE: CT ABDOMEN PELVIS W CON INDICATIONS: Right lower quadrant pain TECHNIQUE: After the administration of oral and intravenous contrast, axial sections were acquired from the lung bases to the pubic symphysis. Coronal and sagittal reformats were performed. For radiation dose reduction, the following was used: automated exposure control, adjustment of mA and/or kV according to patient size. COMPARISON:[facility], CT, ABDOMEN/PELVIS WITH CONTRAST, 06/06/2017, 13:18. FINDINGS: Image quality: Excellent. Lung bases: Unremarkable. Heart: No significant findings. ABDOMEN: Liver: Unremarkable. Gallbladder: Status post cholecystectomy. Biliary ducts: There is mild to moderate fatty infiltration of the pancreas. Pancreas: Unremarkable. Spleen: Unremarkable. Adrenal Glands: Unremarkable. Kidneys and Ureters: Unremarkable. Stomach and Bowel: Multiple diverticula are seen in the colon without signs of acute diverticulitis. The appendix is not visualized, and is likely surgically absent. There is moderate stool throughout the colon. Bowel wall thickening in the proximal transverse colon is most likely related to peristalsis. Peritoneum: No abnormal intraperitoneal fluid. No free air. Ventral Wall: No hernia. Abdominal Nodes: No retroperitoneal or mesenteric adenopathy by size criteria. Vessels: Aorta and inferior vena cava are normal in size. PELVIS: Pelvic Organs: Status post hysterectomy. Bladder: Unremarkable. Pelvic Nodes: No enlarged lymph nodes. Miscellaneous: No inguinal hernias are seen. Bones: Status post left hip arthroplasty. Postsurgical changes are also seen in the lower lumbar spine. Degenerative changes and levoconvex curvature seen in the spine. IMPRESSION: 1. No acute abnormality identified in the abdomen or pelvis. 2. Colonic diverticulosis without signs of acute diverticulitis. Moderate stool throughout the colon. Dictated by: Filipe Dunbar M.D. on 04/30/2021 at 16:15 Approved by: Filipe Dunbar M.D. on 04/30/2021 at 16:20
== END ==
PROVIDERS: PCP Nurse Practitioner; Referring Provider Physician Assistant; Visit Provider Physician Assistant
DX: R10.31 Right lower quadrant pain (principal); R19.8 Other specified symptoms and signs involving the digestive system and abdomen; K57.90 Diverticulosis of intestine, part unspecified, without perforation or abscess without bleeding; Z90.49 Acquired absence of other specified parts of digestive tract
CPT/HCPCS: 74177; Q9967

== ENCOUNTER 2021-07-10 14:12 | Emergency (ER) | payer OTHER, SELFPAY ==
[2020-11-28 14:13] VITALS: BMI 25.9
[2021-07-10] VITALS (11 sets, daily range): BP systolic 142–182; BP diastolic 67–105; PULSE 76–93; RESP 18–29; TEMP 36.6; O2SAT 96–99; BMI 25.8
--- NOTE | 2021-07-10 15:17 | ED.CHESTPAIN ---
HPI - Chest Pain General Chief Complaint: Chest Pain Stated Complaint: Throat Feels Like It's Closing, Chest Pain Time Seen by Provider: 07/10/21 14:53 Source: patient Mode of arrival: Ambulatory Limitations: no limitations History of Present Illness HPI narrative: Patient is a 81-year-old female history of severe anxiety presenting today with possible anxiety and difficulty swallowing. She on she says it started last evening she said she was up all night swallowing all loss a saliva feels like she cannot swallow but she is swallowing. She is able to have a pulse cereal this morning. She says it feels like it is progressively getting worse. She denies any tongue swelling or lip swelling. She says it does not feel like anything is stuck in her throat. She is not vomiting. states that they have homeless daughter who is addicted to drugs recently went through 80,000 dollars over just a few months. She has causing increased stress in their lives and his just can not deal with. She is having some chest discomfort as well. No numbness tingling or weakness. She is requesting anxiety medication she was previously on Ativan which she has not been on for a long time. She is taking BuSpar for her long-term anxiety. The patient is feeling like she is having increased saliva. states that she has had this feeling for the last 3 weeks. She has had some nausea as well she recently had an EGD. Related Data Home Medications Medication Instructions Recorded Confirmed levothyroxine 50 mcg tablet 0.05 mg PO QDAY #0 08/31/17 03/14/19 (Synthroid) buspirone 15 mg tablet 10 mg PO BID 02/22/18 03/14/19 hydroxyzine pamoate 25 mg capsule 1 dose PO Q8H PRN 02/22/18 03/14/19 lansoprazole 30 mg capsule,delayed 30 mg PO DAILY 02/22/18 03/14/19 release (Prevacid) acetaminophen 500 mg tablet 1,000 mg PO TID 03/14/19 03/14/19 (Tylenol Extra Strength) aripiprazole 5 mg tablet (Abilify) 5 mg PO DAILY 03/14/19 03/14/19 dicyclomine 20 mg tablet 20 mg PO TID 03/14/19 03/14/19 paroxetine HCl 20 mg tablet 20 mg PO DAILY 03/14/19 03/14/19 trazodone 100 mg tablet 200 mg PO BEDTIME 03/14/19 03/14/19 Previous Rx's Medication Instructions Recorded aspirin 81 mg tablet,delayed 81 mg PO BID #60 tab 03/30/19 release docusate sodium 100 mg capsule 100 mg PO BID #60 cap 03/30/19 (DOK) ibuprofen 400 mg tablet 800 mg PO TID PRN #40 tab 03/30/19 oxycodone 5 mg tablet 5 mg PO Q4-6H PRN #1 tab 03/30/19 lorazepam 0.5 mg tablet (Ativan) 0.5 mg PO BEDTIME PRN #3 tab 07/10/21 Allergies Allergy/AdvReac Type Severity Reaction Status Date / Time Sulfa (Sulfonamide Allergy Intermediate RASH Verified 12/08/18 13:35 Antibiotics) [SULFA (SULFONAMIDE ANTIBIOTICS)] Review of Systems Review of Systems Narrative: GENERAL: Denies chills, fatigue, malaise, fever, sweats, travel HEENT: Denies sinus pain, ear pain, sore throat, difficulty swallowing, neck pain RESPIRATORY: Denies dyspnea, cough, wheezing, hemoptysis, sputum. CARDIOVASCULAR: See HPI GASTROINTESTINAL: Denies nausea, vomiting, abdominal pain, diarrhea, constipation, melena. : Denies dysuria, frequency, incontinence, hematuria, urinary retention, flank pain. MUSCULOSKELETAL: Denies weakness, joint pain, or bony pain SKIN: No rash, no erythema, no pruritus NEUROLOGIC: Denies weakness, dizziness, headache, numbness, change in speech, confusion PSYCHIATRIC: See HPI 12 point review of systems is negative except for those stated above and HPI Patient History Medical History (Updated 07/10/21 @ 17:23 by Gabi Appiah DO) Anxiety Arthritis Depression DJD (degenerative joint disease) GERD (gastroesophageal reflux disease) Hypothyroidism Neuropathy Osteoarthritis Paroxysmal atrial fibrillation (~2014) Yeast infection Yeast infection of the vagina Surgical History (Updated 03/14/19 @ 13:23 by Yue Schultz RN) H/O: hysterectomy History of lumbar fusion (~2014) Hx of cholecystectomy Hx of ovarian cystectomy S/P cervical spinal fusion (~2015) Social History household members: spouse Smoking Status: Never smoker alcohol intake: current Smoking Status: Never smoker alcohol intake frequency: a few times a week Substance Use Type: does not use Exam Initial Vital Signs Initial Vital Signs: Vital Signs Temperature 97.9 F 07/10/21 14:18 Pulse Rate 93 H 07/10/21 14:18 Respiratory Rate 20 07/10/21 14:18 Blood Pressure 170/81 H 07/10/21 14:18 Pulse Oximetry 99 07/10/21 14:18 GENERAL: Alert anxious 81-year-old female appears to be managing her secretions but is quite anxious HEENT: Head atraumatic,EOMI, pupils reactive, face symmetric, dry mucous membranes, no tongue swelling no lip swelling no stridor, managing secretions CARDIOVASCULAR: Regular rate and rhythm without murmurs, rubs or gallops. RESPIRATORY: Breath sounds equal bilaterally, no wheezes rales or rhonchi. ABDOMEN: Soft, nontender. Normoactive bowel sounds all 4 quadrants. No guarding or rebound. EXTREMITIES: Normal range of motion, no clubbing or edema. Neurovascularly intact NEUROLOGICAL: Alert and oriented x4.Normal gait and speech. Cranial nerves II through XII grossly intact. SKIN: Warm, dry, no laceration, no petechiae, no rashes or lesions. Course Orders Ordered: ED Orders 07/10/21 14:47 Complete Blood Count AUTO DIFF Stat Comprehensive Metabolic Panel Stat Lipase Stat Troponin & CK Cardiac Panel Stat 07/10/21 15:32 XR chest 1V Stat EKG-12 Lead Stat 07/10/21 15:40 Urine Culture Stat Urine Microscopic Stat Discontinued Medications Lorazepam (Lorazepam 0.5 Mg Tablet) 1 mg PO NOW ONE Stop: 07/10/21 15:46 Last Admin: 07/10/21 15:44 Dose: Not Given Documented by: GREG Lorazepam (Lorazepam 2 Mg/Ml Inj) 0.5 mg IV NOW ONE Stop: 07/10/21 15:45 Last Admin: 07/10/21 15:53 Dose: 0.5 mg Documented by: GREG Lorazepam (Lorazepam 2 Mg/Ml Inj) 0.5 mg IV NOW ONE Stop: 07/10/21 16:08 Last Admin: 07/10/21 16:12 Dose: 0.5 mg Documented by: GREG Vital Signs Vital signs: Vital Signs - 8 hr 07/10/21 14:18 07/10/21 14:42 07/10/21 15:00 Temperature 97.9 F Pulse Rate 93 H 85 84 Respiratory Rate 20 29 H 29 H Blood Pressure 170/81 H 182/81 H Pulse Oximetry 99 98 99 07/10/21 15:14 07/10/21 15:32 07/10/21 15:34 Temperature Pulse Rate 83 86 79 Respiratory Rate 18 28 H Blood Pressure 174/79 H 168/105 H Pulse Oximetry 99 96 98 07/10/21 15:36 07/10/21 16:00 07/10/21 16:01 Temperature Pulse Rate 79 86 83 Respiratory Rate 27 H 29 H 26 H Blood Pressure 155/72 H 149/67 H Pulse Oximetry 98 98 98 07/10/21 16:30 07/10/21 17:00 Temperature Pulse Rate 76 77 Respiratory Rate 21 20 Blood Pressure 142/70 H Pulse Oximetry 98 97 MDM - Chest Pain Lab Data Result diagrams: 07/10/21 14:47 07/10/21 14:47 Labs: Lab Results 07/10/21 07/10/21 07/10/21 Range/Units 14:47 14:47 15:40 WBC 6.4 (4.5-11.0) X10^3/uL RBC 4.15 (4.0-5.2) X10^6/uL Hgb 13.5 (12.0-16.0) g/dL Hct 38.7 (36-46) % MCV 93.3 (80-100) fL MCH 32.6 (26-34) PG MCHC 34.9 (30-36) % RDW 12.9 (11.6-14.8) % Plt Count 304 (150-400) X10^3/uL Neut % (Auto) 71.3 (50-75) % Lymph % (Auto) 17.6 L (25-40) % [place] % (Auto) 10.1 (3-14) % Eos % (Auto) 0.4 L (2-4) % Baso % (Auto) 0.6 (0-2) % Neut # (Auto) 4600 (1790-3049) /uL Lymph # (Auto) 1100 (5244-4201) /uL [place] # (Auto) 600 (0-900) /uL Eos # (Auto) 0 (0-450) /uL Baso # (Auto) 0 (0-100) /uL Sodium 133 L (137-145) mmol/L Potassium 4.0 (3.4-5.1) mmol/L Chloride 100 (98-107) mmol/L Carbon Dioxide 25 (22-32) mmol/L BUN 9 (7-17) mg/dL Creatinine 0.60 (0.52-1.04) mg/dL Estimated GFR > 60.0 (>60) mL/min BUN/Creatinine Ratio 15.0 (6-22) Glucose 105 (80-110) mg/dL Calcium 9.3 (8.4-10.2) mg/dL Total Bilirubin 0.3 (0.2-1.3) mg/dL AST 26 (14-36) IU/L ALT 19 (<35) IU/L Alkaline Phosphatase 98 (38-126) U/L Total Creatine Kinase 88 (30-135) U/L CK-MB (CK-2) TNP CK-MB (CK-2) Rel Index TNP Troponin I < 0.012 (0.01-0.034) ng/mL Total Protein 7.1 (6.3-8.2) g/dL Albumin 4.2 (3.5-5.0) g/dL Globulin 2.9 (1.7-4.1) g/dL Albumin/Globulin Ratio 1.4 (1.0-2.8) Lipase 51 (23-300) U/L Urine RBC 0-1/hpf (0-5/HPF) Urine WBC 0-1/hpf (0-5/HPF) Ur Squamous Epith Cells 1-5 /hpf (0-5/HPF) Ur Transition Epith Cell 0-1/hpf (0-5/HPF) Urine Bacteria None seen (None) Ur Culture Indicated? Specimen cultured Urine Dip Bedside Urine Glucose Negative Bedside Urine Bilirubin - Negative Bedside Urine Ketone - Negative Urine Specific [place] 1.015 Bedside Urine Occult Blood - Negative Bedside Urine pH 6.0 Bedside Urine Protein - Negative Bedside Urine Urobilinogen - Negative Bedside Urine Nitrite - Negative Bedside Urine Leukocytes + 70 Esterase Imaging Data Chest x-ray: Radiologist's Impression: PROCEDURE:? XR CHEST 1V ? INDICATIONS:? difficulty swallowing ? TECHNIQUE:? One view of the chest was acquired.? ? COMPARISON:? [facility], CR, XR CHEST 2V, 12/08/2018, 14:24. ? FINDINGS:? ? Surgical changes and devices:? Spinal fusion hardware is partially imaged in the lower cervical spine. ? Lungs and pleura:? Lungs are clear.? No pleural effusions or pneumothorax.? ? Mediastinum:? Mediastinal contours appear normal.? Heart size is normal.? ? Bones and chest wall:? No suspicious bony lesions.? Overlying soft tissues appear unremarkable.? ? IMPRESSION:? No acute cardiopulmonary abnormality. ? ? Dictated by: Filipe Dunbar M.D. on 07/10/2021 at 15:54 ? ? ECG Data Interpretation: Normal sinus rhythm rate 80 p.r. interval 156 QRS [address] changes no T-wave inversions no sign of ischemia, similar to previous EKG MDM Narrative Medical decision making narrative: The patient has obvious stressor in her life. states that she is quite anxious and it has gotten worse over the news that they get about their daughter. Patient is having increased saliva she is obviously managing her own secretions she is not spitting up. She recently had an EGD which did not show any abnormality. At this time she has no signs of angioedema or anaphylaxis. Blood work is overall reassuring. She is feeling significantly better after Ativan she is requesting a prescription for Ativan. I have explained to both her and her that and does not typical medication 40 anxiety however her anxiety seems to be quite severe I will give her a couple tablets and then she needs to follow up with her primary care provider. Discharge Plan Departure Patient Disposition: Home Clinical Impression: Anxiety Instructions: DI for Anxiety -- Adult Activity Restrictions/Additional Instructions: *You have been diagnosed with anxiety *What to do: At the time her symptoms are probably related to anxiety. your blood work is overall reassuring. Please follow-up with your primary care provider *Continue to take medications as directed Ativan 0.5 mg only if needed for severe anxiety every 6 hour--> SENT TO [facility] *Follow up with your primary care provider in 2-3 days *Return to ER if you should have increasing chest pain difficulty swallowing, weakness or any new, worsening or concerning symptoms CONTROLLED SUBSTANCE DISCHARGE (Narcotoic/benzodiazepine/Flexeril/Phenergan) 1. You have been prescribed narcotic medications, it does have acetaminophen/Tylenol/paracetamol in it, DO NOT TAKE MORE THAN 4,00mg in 24 hours of Tylenol. TRAMADOL DOES NOT CONTAIN TYLENOL 2. Please understand that we cannot provide further refills of narcotics, benzodiazepines or controlled substances through the ED and her pain management will need to be through your provider. 3. While on these medications you cannot drive or operate heavy machinery. 4. You cannot sign legal documents or perform any duties such as this. 5. As long as you're taking opiate pain medications he should also be taking a stool softener such as Colace, Dulcolax, MiraLAX or prune juice, to help avoid constipation. Prescriptions: New lorazepam [Ativan] 0.5 mg tablet 0.5 mg PO BEDTIME PRN (Reason: anxiety) Qty: 3 RF: 0 No Action levothyroxine [Synthroid] 50 MCG tablet 0.05 mg PO QDAY Qty: 0 RF: 0 buspirone 15 mg Tablet 10 mg PO BID RF: 0 lansoprazole [Prevacid] 30 mg Capsule,Delayed Release(Dr/Ec) 30 mg PO DAILY RF: 0 hydroxyzine pamoate 25 mg Capsule 1 dose PO Q8H PRN (Reason: Nausea) RF: 0 acetaminophen [Tylenol Extra Strength] 500 mg Tablet 1,000 mg PO TID RF: 0 trazodone 100 mg Tablet 200 mg PO BEDTIME RF: 0 dicyclomine 20 mg Tablet 20 mg PO TID RF: 0 paroxetine HCl 20 mg Tablet 20 mg PO DAILY RF: 0 aripiprazole [Abilify] 5 mg Tablet 5 mg PO DAILY RF: 0 aspirin 81 mg Tablet,Delayed Release (Dr/Ec) 81 mg PO BID Qty: 60 RF: 0 docusate sodium [DOK] 100 mg Capsule 100 mg PO BID Qty: 60 RF: 0 oxycodone 5 mg Tablet 5 mg PO Q4-6H PRN (Reason: Pain, Moderate (4-6)) Qty: 1 RF: 0 ibuprofen 400 mg tablet 800 mg PO TID PRN (Reason: pain) Qty: 40 RF: 0 Referrals: Macy Montejo ARNP [Primary Care Provider] -
--- NOTE | 2021-07-10 15:32 | DI.RAD.S_ITS ---
PROCEDURE: XR CHEST 1V INDICATIONS: difficulty swallowing TECHNIQUE: One view of the chest was acquired. COMPARISON: [facility], CR, XR CHEST 2V, 12/08/2018, 14:24. FINDINGS: Surgical changes and devices: Spinal fusion hardware is partially imaged in the lower cervical spine. Lungs and pleura: Lungs are clear. No pleural effusions or pneumothorax. Mediastinum: Mediastinal contours appear normal. Heart size is normal. Bones and chest wall: No suspicious bony lesions. Overlying soft tissues appear unremarkable. IMPRESSION: No acute cardiopulmonary abnormality. Dictated by: Filipe Dunbar M.D. on 07/10/2021 at 15:54 Approved by: Filipe Dunbar M.D. on 07/10/2021 at 15:55
[2021-07-10 15:46] LABS: Basophils Absolute Auto 0 /uL (0-100); Eosinophils Absolute Auto 0 /uL (0-450); Neutrophils Absolute Auto 4600 /uL (1500-7000)
[2021-07-10 15:49] LABS: Add Manual Diff / Slide Review NO; Basophils Percent Auto 0.6 % (0-2); Eosinophils Percent Auto 0.4 % (2-4); Hematocrit 38.7 % (36-46); Hemoglobin 13.5 g/dL (12.0-16.0); Lymphocytes Absolute Auto 1100 /uL (1100-4500); Lymphocytes Percent Auto 17.6 % (25-40); Mean Corpuscular HGB Conc 34.9 % (30-36); Mean Corpuscular Hemoglobin 32.6 PG (26-34); Mean Corpuscular Volume 93.3 fL (80-100); Monocytes Absolute Auto 600 /uL (0-900); Monocytes Percent Auto 10.1 % (3-14); Neutrophils Percent Auto 71.3 % (50-75); Platelet Count 304 X10^3/uL (150-400); Red Blood Cell Count 4.15 X10^6/uL (4.0-5.2); Red Cell Distribution Width 12.9 % (11.6-14.8); White Blood Cell Count 6.4 X10^3/uL (4.5-11.0)
[2021-07-10 15:51] LABS: Alanine Aminotransferase 19 IU/L (<35); Albumin 4.2 g/dL (3.5-5.0); Albumin Globulin Ratio 1.4 (1.0-2.8); Alkaline Phosphatase 98 U/L (38-126); Aspartate Aminotransferase 26 IU/L (14-36); Bilirubin Total 0.3 mg/dL (0.2-1.3); Blood Urea Nitrogen 9 mg/dL (7-17); Calcium 9.3 mg/dL (8.4-10.2); Carbon Dioxide 25 mmol/L (22-32); Chloride 100 mmol/L (98-107); Creatine Kinase 88 U/L (30-135); Estimated Glomerular Filt Rate > 60.0 mL/min (>60); Globulin 2.9 g/dL (1.7-4.1); Glucose 105 mg/dL (80-110); HEMOLYSIS 25 (0-50); Lipase 51 U/L (23-300); Sodium 133 mmol/L (137-145); Total Protein 7.1 g/dL (6.3-8.2)
[2021-07-10] MEDS: LORazepam 2 MG/ML INJ 0.5 MG IV ×2 (15:53→16:12)
[2021-07-10 16:03] LABS: Troponin I < 0.012 ng/mL (0.01-0.034)
[2021-07-10 16:27] LABS: Bacteria Urine None Seen; Culture Indicated Urine Specimen Cultured; RBC Urine 0-1/HPF (0-5/HPF); Squamous Epithelial Cell Urine 1-5 /HPF (0-5/HPF); Transitional Epi Cells Urine 0-1/HPF (0-5/HPF); WBC Urine 0-1/HPF (0-5/HPF)
== END 2021-07-10 17:33 | disposition home or self-care (01) ==
PROVIDERS: Emergency Provider Emergency Medicine; PCP Nurse Practitioner
DX: F41.9 Anxiety disorder, unspecified (principal); F43.9 Reaction to severe stress, unspecified
CPT/HCPCS: 36415; 71045; 80053; 81003; 81015; 82550; 83690; 84484; 85025; 87086; 93005; 93010; 96374; 99284; J2060

== ENCOUNTER → 2022-03-31 13:00 | Outpatient (CLI) | payer OTHER, SELFPAY ==
[2020-11-28 14:13] VITALS: BMI 25.9
--- NOTE | 2022-03-31 | DI.MRI.S_ITS ---
PROCEDURE: MR ABDOMEN WO/W CON INDICATIONS: Nausea TECHNIQUE: Coronal HASTE, axial 2D FLASH in- and [id number]; axial breath-hold T2 FSE. Dynamic axial VIBE during the administration of contrast; post-contrast coronal VIBE or 2D FLASH with fat saturation from the hepatic dome to the iliac crests. Optional diffusion weighted imaging and ADC may be performed. COMPARISON: [facility], CT, CT ABDOMEN PELVIS W CON, 04/30/2021, 13:49. FINDINGS: Image quality: Multiple sequences are degraded by motion artifact. Lung bases: No basal pleural effusions. Solid organs: There is diffuse signal loss on [id number] images compatible with hepatic steatosis. No suspicious focal liver lesion are identified. Gallbladder is surgically absent. Biliary system is non dilated. There is fatty atrophy of the pancreas. No dilation of the main pancreatic duct visualized. Spleen is normal in size and enhancement. No adrenal nodules. Both kidneys demonstrate normal size and enhancement, without hydronephrosis. Nodes and vessels: No retroperitoneal or mesenteric adenopathy by size criteria. Aorta and inferior vena cava are normal in size. Bowel and peritoneum: Unenhanced small bowel loops are normal in caliber. Large amount of stool present in the visualized colon. No substantial free fluid. Bones and soft tissues: No ventral hernias. Bone marrow is unremarkable in overall signal. IMPRESSION: 1. Hepatic steatosis. 2. No suspicious focal liver lesion visualized. 3. Prior cholecystectomy. No biliary ductal dilation demonstrated. Dictated by: Filipe Wood M.D. on 03/31/2022 at 18:27 Approved by: Filipe Wood M.D. on 03/31/2022 at 18:39
== END ==
PROVIDERS: PCP Nurse Practitioner; Referring Provider Physician Assistant; Visit Provider Physician Assistant
DX: R11.0 Nausea (principal); R10.84 Generalized abdominal pain; R14.0 Abdominal distension (gaseous); R63.8 Other symptoms and signs concerning food and fluid intake; K57.30 Diverticulosis of large intestine without perforation or abscess without bleeding; N28.89 Other specified disorders of kidney and ureter; Z90.49 Acquired absence of other specified parts of digestive tract
CPT/HCPCS: 74183

== ENCOUNTER → 2022-04-02 12:44 | Outpatient (CLI) | payer OTHER, SELFPAY ==
[2020-11-28 14:13] VITALS: BMI 25.9
--- NOTE | 2022-04-02 | DI.MRI.S_ITS ---
PROCEDURE: MR PELVIS WO/W CON INDICATIONS: Nausea TECHNIQUE: Coronal HASTE, sagittal breath-hold T2 FSE; axial T1 FSE with and without fat saturation through the pelvis. Optional long- and short-axis uterine nonbreath-hold T2 FSE through the uterus. Sagittal or axial dynamic VIBE during administration of contrast. Post-contrast axial or coronal VIBE/2-D FLASH with fat saturation from the iliac crests to the symphysis. Optional diffusion weighted imaging and ADC may be performed. COMPARISON: [facility], CT, CT ABDOMEN PELVIS W CON, 04/30/2021, 13:49. [facility], MR, MR ABDOMEN WO/W CON, 03/31/2022, 13:44. FINDINGS: Image quality: Excellent. Uterus: The uterus is surgically absent. Adnexa: Ovaries were not identified, surgically absent versus atrophic. No suspicious adnexal masses. Urinary system: Bladder wall is normal thickness. There is a small posterolateral right bladder diverticulum. Nodes and vessels: No pelvic or inguinal adenopathy by size criteria. Iliac vessels are normal in size. Bowel and peritoneum: Sigmoid colon demonstrates moderate diverticulosis. The visible small bowel loops are normal in caliber and wall thickness. The appendix was not visible. Soft tissues: No inguinal hernias. No findings of pelvic floor incompetence in the absence of provocation. Bones: Partially imaged surgical changes of L5-S1 laminectomy and posterior fusion. Left hip arthroplasty components. IMPRESSION: 1. No explanation for nausea. 2. Sigmoid diverticulosis without acute diverticulitis. 3. Post hysterectomy and probable oophorectomy. 4. Small bladder wall diverticulum without evidence of intrinsic stone. Dictated by: Kamryn Simon M.D. on 04/05/2022 at 10:11 Approved by: Kamryn Simon M.D. on 04/05/2022 at 10:16
== END ==
PROVIDERS: PCP Nurse Practitioner; Referring Provider Physician Assistant; Visit Provider Physician Assistant
DX: R11.0 Nausea (principal); R10.84 Generalized abdominal pain; R14.0 Abdominal distension (gaseous); K57.30 Diverticulosis of large intestine without perforation or abscess without bleeding; Z90.710 Acquired absence of both cervix and uterus; N32.3 Diverticulum of bladder
CPT/HCPCS: 72197; A9579

== ENCOUNTER 2022-08-18 11:27 | Emergency (ER) | payer OTHER, SELFPAY ==
[2020-11-28 14:13] VITALS: BMI 25.9
[2022-08-18 11:31] VITALS: BP 144/71; PULSE 93; RESP 20; TEMP 36.9; O2SAT 99; BMI 27.3
--- NOTE | 2022-08-18 11:46 | PC.NURSE ---
Patient walked back to the room. Daughter at bedside came to staff at desk she is incredibly anxious and needs water to take her meds Patient provided cup of water and is taking her personal Ativan 1mg PO.
--- NOTE | 2022-08-18 11:53 | ED.GENADULT ---
HPI - General Adult General Chief complaint: Nasal Problem Stated complaint: nose bleed for 2 hrs Time Seen by Provider: 08/18/22 11:46 Source: patient Mode of arrival: Ambulatory History of Present Illness HPI narrative: 76-year-old female. Not on anticoagulation. Here for evaluation of a nosebleed. She did have a bleed yesterday but it did not last as long and it stopped on its own. No trauma. No new medications. No issues with bleeding. Related Data Home Medications Medication Instructions Recorded Confirmed levothyroxine 50 mcg tablet 0.05 mg PO QDAY ##0 08/31/17 06/30/22 (Synthroid) buspirone 15 mg tablet 10 mg PO BID 02/22/18 06/30/22 hydroxyzine pamoate 25 mg capsule 1 dose PO Q8H PRN Nausea 02/22/18 06/30/22 lansoprazole 30 mg capsule,delayed 30 mg PO DAILY 02/22/18 06/30/22 release (Prevacid) acetaminophen 500 mg tablet 1,000 mg PO TID 03/14/19 06/30/22 (Tylenol Extra Strength) aripiprazole 5 mg tablet (Abilify) 5 mg PO DAILY 03/14/19 06/30/22 dicyclomine 20 mg tablet 20 mg PO TID Constipation 03/14/19 06/30/22 paroxetine HCl 20 mg tablet 20 mg PO DAILY 03/14/19 06/30/22 trazodone 100 mg tablet 200 mg PO BEDTIME 03/14/19 06/30/22 Previous Rx's Medication Instructions Recorded aspirin 81 mg tablet,delayed 81 mg PO BID #60 tabs 03/30/19 release docusate sodium 100 mg capsule 100 mg PO BID #60 caps 03/30/19 (DOK) ibuprofen 400 mg tablet 800 mg PO TID PRN pain #40 tabs 03/30/19 oxycodone 5 mg tablet 5 mg PO Q4-6H PRN Pain, Moderate 03/30/19 (4-6) #1 tab lorazepam 0.5 mg tablet (Ativan) 0.5 mg PO BEDTIME PRN anxiety #3 07/10/21 tabs Allergies Allergy/AdvReac Type Severity Reaction Status Date / Time Sulfa (Sulfonamide Allergy Intermediate RASH Verified 07/13/22 13:20 Antibiotics) [SULFA (SULFONAMIDE ANTIBIOTICS)] Review of Systems Constitutional Constitutional: Reports system reviewed and no additional complaints, except as documented ENT Ears, Nose, Mouth, and Throat: Reports system reviewed and no additional complaints, except as documented Respiratory Respiratory: Reports system reviewed and no additional complaints, except as documented Integumentary/Breasts Skin/Breast: Reports system reviewed and no additional complaints, except as documented Hematologic/Lymphatic On Anticoagulants: No Patient History Medical History Anxiety Arthritis Depression DJD (degenerative joint disease) GERD (gastroesophageal reflux disease) Hypothyroidism Neuropathy Osteoarthritis Paroxysmal atrial fibrillation (~2014) Yeast infection Yeast infection of the vagina Surgical History H/O: hysterectomy History of lumbar fusion (~2014) Hx of cholecystectomy Hx of ovarian cystectomy S/P cervical spinal fusion (~2015) Social History household members: spouse Smoking Status: Never smoker alcohol intake: current Smoking Status: Never smoker alcohol intake frequency: a few times a week Substance Use Type: does not use Exam Initial Vital Signs Initial Vital Signs: Vital Signs Temperature 98.5 F 08/18/22 11:31 Pulse Rate 93 H 08/18/22 11:31 Respiratory Rate 20 08/18/22 11:31 Blood Pressure 144/71 H 08/18/22 11:31 Pulse Oximetry 99 08/18/22 11:31 Oxygen Delivery Method 08/18/22 11:31 Const General: cooperative, comfortable, well developed and No ill appearing [facility] Head: normal to inspection and normocephalic Nose: external nose normal, septum normal and No epistaxis Resp Effort & Inspection: normal respiratory effort Auscultation: clear to auscultation bilaterally Skin General: no rashes or lesions noted Neuro General: patient alert, patient awake and moves all extremities Extrem General: normal to inspection and capillary refill normal Course Vital Signs Vital signs: Vital Signs - 8 hr 08/18/22 11:31 Temperature 98.5 F Pulse Rate 93 H Respiratory Rate 20 Blood Pressure 144/71 H Pulse Oximetry 99 Oxygen Delivery Method Room Air Medical Decision Making MDM Narrative Medical decision making narrative: Bleeding has stopped with the use of a nasal clamp. There is no septal hematoma noted. No indication for nasal packing. Patient not on anticoagulation. No history of trauma. I did discuss things that she could try at home if the bleeding were to return in order to prevent a re visit to the emergency department. She was given return precautions and follow-up instructions. She expressed understanding and agreement. Discharge Plan Departure Patient Disposition: Home Clinical Impression: Epistaxis Instructions: DI for Nosebleed Activity Restrictions/Additional Instructions: Continue to take all of your medications as directed. Contact your primary provider for follow-up. Return to the emergency department for any new or worsening symptoms. Prescriptions: No Action levothyroxine [Synthroid] 50 MCG tablet 0.05 mg PO QDAY Qty: 0 buspirone 15 mg Tablet 10 mg PO BID Rx Instructions: Pt confirms 10mg BID lansoprazole [Prevacid] 30 mg Capsule,Delayed Release(Dr/Ec) 30 mg PO DAILY hydroxyzine pamoate 25 mg Capsule 1 dose PO Q8H PRN (Reason: Nausea) acetaminophen [Tylenol Extra Strength] 500 mg Tablet 1,000 mg PO TID trazodone 100 mg Tablet 200 mg PO BEDTIME dicyclomine 20 mg Tablet 20 mg PO TID paroxetine HCl 20 mg Tablet 20 mg PO DAILY aripiprazole [Abilify] 5 mg Tablet 5 mg PO DAILY aspirin 81 mg Tablet,Delayed Release (Dr/Ec) 81 mg PO BID Qty: 60 0RF docusate sodium [DOK] 100 mg Capsule 100 mg PO BID Qty: 60 0RF oxycodone 5 mg Tablet 5 mg PO Q4-6H PRN (Reason: Pain, Moderate (4-6)) Qty: 1 0RF ibuprofen 400 mg tablet 800 mg PO TID PRN (Reason: pain) Qty: 40 0RF lorazepam [Ativan] 0.5 mg tablet 0.5 mg PO BEDTIME PRN (Reason: anxiety) Qty: 3 0RF Referrals: Macy Montejo ARNP [Primary Care Provider] - Visit Report Forms: Patient Portal/API
--- NOTE | 2022-08-18 12:44 | PC.NURSE ---
nasal clamp applied at triage, removed clamp at 1232, currently no bleeding from nares.
== END 2022-08-18 12:56 | disposition home or self-care (01) ==
PROVIDERS: Emergency Provider Emergency Medicine; PCP Nurse Practitioner
DX: R04.0 Epistaxis (principal); Z79.899 Other long term (current) drug therapy
CPT/HCPCS: 99281

== ENCOUNTER → 2023-02-17 17:59 | Outpatient (CLI) | payer OTHER, SELFPAY ==
[2020-11-28 14:13] VITALS: BMI 25.9
== END ==
PROVIDERS: PCP Nurse Practitioner; Visit Provider Nurse Practitioner Family
DX: S01.309A Unspecified open wound of unspecified ear, initial encounter (principal)
CPT/HCPCS: 87070; 87075; 87077; 87147; 87186; 87205

== ENCOUNTER → 2023-06-04 11:51 | Outpatient (CLI) | payer OTHER, SELFPAY ==
[2020-11-28 14:13] VITALS: BMI 25.9
--- NOTE | 2023-06-04 | DI.MRI.S_ITS ---
PROCEDURE: MR LUMBAR SPINE WO CON INDICATIONS: Spinal stenosis, lumbar region with neurogenic cla TECHNIQUE: Noncontrast sagittal T1 spin echo and T2 fast echo, sagittal STIR, and T2 fast spin echo through the lumbar spine. In cases with scoliosis, additional coronal T2 fast spin echo may be performed. COMPARISON: [facility], MR, LUMBAR SPINE W/O CONTRAST, 04/25/2014, 12:46. [facility], MR, L-SPINE WITHOUT CONTRAST, 12/05/2008, 14:44. FINDINGS: Image quality: Excellent. Alignment and Curvature: There is leftward scoliotic curvature with apex at L2-3. There is trace retrolisthesis of L2 on L3, L3 on L4. Posterior fusion is present from L4 through S1. Bone Marrow: Marrow is of normal overall signal. No acute vertebral body compression fractures. Spinal Cord: Conus medullaris terminates at the L1-2 level. Visualized cord demonstrates normal signal and size. Paraspinous Soft Tissues: No paravertebral masses. Discs: Multilevel moderate to severe disc desiccation is present. T12-L1: No disc bulge, spinal stenosis or foraminal narrowing. Mild facet and ligamentum flavum hypertrophy. No interval change. L1-L2: Mild disc bulge with superimposed posterior central protrusion more prominent when compared to prior exam. There is dzoe-co-xysnmonv spinal stenosis, progressive compared to prior exam. No foraminal narrowing. Facet and ligamentum flavum hypertrophy are present. L2-L3: Mild disc bulge without spinal stenosis. Minimal bilateral foraminal narrowing without interval progression. Facet and ligamentum flavum hypertrophy are present. Minimal epidural lipomatosis. L3-L4: Mild disc bulge with mild spinal stenosis, progressive compared to prior exam. Moderate to severe right and [id number] left foraminal narrowing with facet and ligamentum flavum hypertrophy. Epidural lipomatosis is present. No interval change. L4-L5: Postsurgical changes are present. No spinal stenosis. Lmxe-[id number] left and moderate to severe right foraminal narrowing with facet and ligamentum flavum hypertrophy. No interval change. L5-S1: Postsurgical changes are present. Moderate to severe left and moderate right foraminal narrowing with facet hypertrophy. No interval progression. IMPRESSION: Multilevel postsurgical and degenerative changes without interval progression as above. Dictated by: Mansi Fregoso M.D. on 06/06/2023 at 14:04 Approved by: Mansi Fregoso M.D. on 06/06/2023 at 14:28
== END ==
PROVIDERS: PCP Nurse Practitioner; Referring Provider Physical Medicine & Rehabilitation; Visit Provider Physical Medicine & Rehabilitation
DX: M48.062 Spinal stenosis, lumbar region with neurogenic claudication (principal); M48.07 Spinal stenosis, lumbosacral region; M47.816 Spondylosis without myelopathy or radiculopathy, lumbar region; M47.817 Spondylosis without myelopathy or radiculopathy, lumbosacral region; Z98.1 Arthrodesis status
CPT/HCPCS: 72148

== ENCOUNTER → 2023-09-22 13:26 | Outpatient (CLI) | payer MEDICARE, SELFPAY ==
[2020-11-28 14:13] VITALS: BMI 25.9
[2023-09-22 14:26] LABS: Add Manual Diff / Slide Review NO; Basophils Absolute Auto 0 /uL (0-100); Basophils Percent Auto 0.8 % (0-2); Eosinophils Absolute Auto 100 /uL (0-450); Eosinophils Percent Auto 2.5 % (2-4); Hematocrit 37.4 % (36-46); Hemoglobin 12.3 g/dL (12.0-16.0); Lymphocytes Absolute Auto 1500 /uL (1100-4500); Lymphocytes Percent Auto 29.3 % (25-40); Mean Corpuscular Hemoglobin 29.4 PG (26-34); Mean Corpuscular Volume 89.3 fL (80-100); Monocytes Absolute Auto 500 /uL (0-900); Neutrophils Absolute Auto 3100 /uL (1500-7000); Neutrophils Percent Auto 58.4 % (50-75); Platelet Count 353 X10^3/uL (150-400); Red Blood Cell Count 4.19 X10^6/uL (4.0-5.2); Red Cell Distribution Width 14.4 % (11.6-14.8); White Blood Cell Count 5.2 X10^3/uL (4.5-11.0)
[2023-09-22 14:29] LABS: Albumin 4.1 g/dL (3.5-5.0); BUN Creatinine Ratio 20.5 (6-22); Blood Urea Nitrogen 15 mg/dL (7-17); Calcium 9.5 mg/dL (8.4-10.2); Carbon Dioxide 25 mmol/L (22-32); Chloride 102 mmol/L (98-107); Estimated Glomerular Filt Rate > 60 mL/min (>60); Glucose 199 mg/dL (80-110); HEMOLYSIS < 15 (0-50); Potassium 4.1 mmol/L (3.4-5.1); Sodium 137 mmol/L (137-145)
[2023-09-22 14:36] LABS: Prealbumin 16.2 mg/dL (17.6-36.0)
== END ==
LOC: RESP 13:29
PROVIDERS: PCP Nurse Practitioner; Referring Provider Orthopaedic Surgery Adult Reconstructive Orthopaedic Surgery; Visit Provider Orthopaedic Surgery Adult Reconstructive Orthopaedic Surgery
DX: Z01.818 Encounter for other preprocedural examination (principal); E55.9 Vitamin D deficiency, unspecified; R73.9 Hyperglycemia, unspecified; R77.0 Abnormality of albumin; Z01.812 Encounter for preprocedural laboratory examination
CPT/HCPCS: 36415; 80048; 82040; 82306; 83036; 84134; 85025; 93005

== ENCOUNTER → 2023-09-30 11:47 | Outpatient (CLI) | payer MEDICARE, SELFPAY ==
[2020-11-28 14:13] VITALS: BMI 25.9
--- NOTE | 2023-09-30 | DI.RAD.S_ITS ---
Bone Density Report Name: VEDA JOY Age: 78 Sex: Female Ethnicity: White Date of : 1945 Indication: postmenopausal; screening for osteoporosis; Referring Provider: GRETA OLIVEIRA Study: Bone densitometry was performed. Exam Date: September 30, 2023 Accession number: [id number] Bone Density: Region BMD T-score Z-score Classification AP Spine(L2, L3) 1.352 2.7 5.3 Normal Femoral Neck (Right) 0.977 1.2 3.4 Normal Total Hip (Right) 1.105 1.3 3.3 Normal Total Forearm (Left) 0.521 -1.1 1.8 Osteopenia 1/3 Forearm (Left) 0.657 -0.6 2.4 Normal UD Forearm (Left) 0.409 -0.6 1.6 Normal World Health Organization criteria for BMD impression classify patients as: Normal (T-score at or above -1.0), Osteopenia (T-score between -1.0 and -2.5), or Osteoporosis (T-score at or below -2.5). 10-year Fracture Risk: FRAX not reported because: All T-scores for Spine Total, Hip Total, Femoral Neck at or above -1.0 Impression: The patient has normal bone mass. Discussion: LOW RISK OF FRACTURE; BONE DENSITY IS WELL ABOVE THE MINIMUM DESIRABLE LEVEL AND ABOVE AVERAGE FOR AGE AND SEX AT ALL SKELETAL SITES TESTED. This person's bone density is above expected limits for age and sex. This is rarely clinically significant, but should be pursued if there are significant musculoskeletal complaints. The patient should follow a healthful lifestyle (good nutrition with adequate calcium and vitamin D, and appropriate weight-bearing exercise). Follow-Up: Consider repeating this study in 5 years or sooner if there is some new clinical indication. Reported by: RAMONA COLEMAN M.D. on 09/30/2023 1:07:00 PM.
== END ==
LOC: RAD 11:48
PROVIDERS: PCP Nurse Practitioner; Referring Provider Orthopaedic Surgery Adult Reconstructive Orthopaedic Surgery; Visit Provider Orthopaedic Surgery Adult Reconstructive Orthopaedic Surgery
DX: Z78.0 Asymptomatic menopausal state (principal); Z13.820 Encounter for screening for osteoporosis
CPT/HCPCS: 77080; 77081

== ENCOUNTER → 2023-10-03 11:33 | Outpatient (CLI) | payer MEDICARE, SELFPAY ==
[2020-11-28 14:13] VITALS: BMI 25.9
== END ==
PROVIDERS: PCP Nurse Practitioner; Visit Provider Physician Assistant
DX: L98.9 Disorder of the skin and subcutaneous tissue, unspecified (principal)
CPT/HCPCS: 87070; 87075; 87077; 87147; 87186; 87205

== ENCOUNTER 2023-10-14 06:23 | Day surgery (SDC) | payer MEDICARE, SELFPAY ==
[2020-11-28 14:13] VITALS: BMI 25.9
[2023-10-11 10:21] VITALS: BMI 26.9
[2023-10-14] VITALS (14 sets, daily range): BP systolic 102–156; BP diastolic 50–83; PULSE 77–96; RESP 12–18; TEMP 36–36.8; O2SAT 92–98; BMI 26.9
--- NOTE | 2023-10-14 | DI.RAD.S_ITS ---
PROCEDURE: XR HIP W PEL IF DONE RT 2V INDICATIONS: TOTAL RT HIP TECHNIQUE: Intraoperative fluoroscopy for right hip replacement COMPARISON: [facility], CR, XR HIP W PEL IF DONE LT 2V, 03/28/2019, 17:08. FINDINGS: Bones: Intraoperative fluoroscopic spot images demonstrate femoral prosthetic Sizer in place and subsequent placement of arthroplasty component. Joint appears congruent. Normal alignment. No unexpected fractures. Soft tissues: Expected intraoperative appearance. IMPRESSION: Expected intraoperative appearance of right hip arthroplasty. Dictated by: Kamryn Simon M.D. on 10/14/2023 at 14:29 Approved by: Kamryn Simon M.D. on 10/14/2023 at 14:30
--- NOTE | 2023-10-14 06:00 | DI.RAD.S_ITS ---
PROCEDURE: XR HIP W PEL IF DONE RT 2V INDICATIONS: MIQUEL TECHNIQUE: AP pelvis and lateral view of the hip acquired. COMPARISON: [facility], SCAR, XR HIP W PEL IF DONE RT 2V, 10/14/2023, 9:08. [facility], [facility], XR HIP W PEL IF DONE LT 2V, 03/28/2019, 17:08. FINDINGS: Bones: Patient is status post right hip arthroplasty, with hardware components in expected positions. The hip joint appears congruent. The visualized bony structures appear intact. Stable left hip arthroplasty. Spine hardware partially visualized. Soft tissues: Overlying postoperative changes are noted. No suspicious soft tissue densities. IMPRESSION: Expected post-operative appearance of the right hip arthroplasty. Dictated by: Marquise Edmond M.D. on 10/14/2023 at 11:29 Approved by: Marquise Edmond M.D. on 10/14/2023 at 11:30
[2023-10-14] MEDS: ACETAMINOPHEN 325 MG TABLET 975 MG PO ×3 (06:58→20:45)
[2023-10-14] MEDS: MELOXICAM 7.5 MG TABLET PO (06:59)
[2023-10-14] MEDS: LACTATED RINGERS 1,000 ML 42 ML IV ×2 (06:59→10:13)
--- NOTE | 2023-10-14 07:35 | PM.PREOP ---
Pre-operative Note Interval Note History & Physical reviewed/Exam performed by Physician: Yes Changes to H&P: No
[2023-10-14] MEDS: TRANEXAMIC ACID 1,000 MG VIAL 2000 MG INJ ×2 (08:10→09:12)
[2023-10-14] MEDS: CEFAZOLIN 2 GM/100 ML PREMIX 100 ML IV ×3 (08:12→23:59)
--- NOTE | 2023-10-14 08:39 | SUR.OPER ---
Supine on padded [place] table with bilateral legs secured in padded positioning boots and suspended in positioning spars, operative leg in traction per surgeon. Head on one pillow. Arms on secured on padded armboard <90 degrees abduction. Padded perineal post in place per surgeon.
[2023-10-14] MEDS: ROPIVACAINE/EPI/CLONIDINE/KET 50 ML SYRINGE INJ (09:11)
--- NOTE | 2023-10-14 10:37 | P.OP_ITS ---
Operative Date/Time/Diagnoses Date of procedure: 10/14/23 Pre-op diagnosis: Right hip arthritis Post-op diagnosis: same Procedure & Clinicians Procedure: Right total hip arthroplasty Same procedure as scheduled: Yes Surgeon: Jamie Washburn Feed Mill Operator: Adilia Fregoso Anesthesia Type: General and Local Operative Notes Estimated Blood Loss (mL): 350 Procedure in detail: Implants: Depuy Total Hip Arthroplasty: * Depuy Bimentum size 51 cup? * Depuy Actis femoral stem size 4 standard offset? * 28 mm +1.5 dual mobility ceramic femoral head? Procedure Summary: 78-year-old female with prior lumbar spine fusion and a T-score of 1.2 in her operative hip. Given her spinal pelvic fusion I elected to utilize a mono block dual mobility acetabular component. Given her good bone density despite her age of [age] years old I utilized an uncemented collared stem. Her templated implants were slightly smaller than the sizes I was able to achieve a good Press-Fit with in the acetabulum and the femur. She had good stability with all stability tests with a standard offset and a +1.5 28 mm head. She had slightly diminished offset compared to the contralateral side however I attributed this to increased offset during her prior total hip arthroplasty and Shenton's line was appropriately restored. Procedure in Detail: This patient was seen preoperatively and evaluated for hip pain which was r efractory to numerous nonoperative treatment modalities. Their hip pain correlated with radiographic changes demonstrating significant degeneration in the hip joint. The risks and benefits of continued nonoperative management versus operative management were discussed at length and all of the patient?s questions were answered. Additional educational materials providing further details beyond our discussion in clinic were provided via a publicly available patient education video which included the incidence of medical complications associated with total hip arthroplasty, reasons for revision following total hip arthroplasty, and patient satisfaction rates following total hip arthroplasty. That video can be accessed at [email or web address] . With this understanding of the risks inherent to the procedure, the patient elected to move forward with operative management. Following preoperative optimization, the patient was scheduled for surgery. The patient was met in the preoperative holding area the day of the procedure and all questions were answered. The patient?s nares were swabbed with betadine in order to decolonize them from MRSA. Informed consent was signed and the operative limb was marked with indelible ink.? The patient was brought back to the operating room where anesthesia was induced. The patient was transferred to the Orlando table and all bony prominences were padded. The operative site was prepped and draped in the usual sterile fashion. Prior to incision, tranexamic acid and cefazolin were administered. Operative templating images were displayed demonstrating the anticipated implant sizes and correct operative extremity. A timeout procedure was performed verifying the patient?s identity, medical comorbidities, allergies, relevant medications, anesthesia type and the surgical plan. All present were in agreement. The assistance of a physician video library assistant was required for positioning, room setup, soft tissue retraction and wound closure. Without this assistance, the procedure would have been significantly more challenging and time consuming.?? A direct anterior approach to the hip was utilized. This was performed with a longitudinal incision through a Heuter interval. The incision was planned 2 cm distal and 2 cm lateral to the ASIS extending towards the lateral patella, in line with the muscle body of the TFL. Following incision, the subcutaneous tissue was dissected while taking care to avoid injury to the lateral femoral cutaneous nerve. The fascia overlying the TFL was identified by dissecting off the overlying fat and identifying perforating vessels to the TFL. The TFL fascia was incised and dissected away from the medial border of the TFL. A cobra retractor was placed over the superior femoral neck between the abductors and the hip capsule and used to reflect the TFL laterally. A Jackpot self-retainer was then placed in the distal aspect of the wound between the TFL and the rectus femoris. This was tensioned to open up the direct anterior interval and the lateral circumflex vessels were identified and coagulated using electrocautery. The floor of the TFL fascia was incised, exposing the pericapsular fat overlying the hip capsule. A second cobra retractor was placed on the inferior femoral neck. A double-bent soft tissue retractor was placed on the anterior wall of the acetabulum and used to tension the reflected head of rectus femoris, which was then released in order to limit soft tissue tension. A capsulotomy was made in the midline of the anterior hip capsule in line with the femoral neck ending at the vastus tubercle. The double-bent retractor was removed in order to limit the amount of time that a soft tissue retractor remained on the anterior wall and protect the femoral nerve. Tag stitches were placed in the superior and inferior leaflets of the hip capsule. An Kole soft tissue retractor was introduced over the tag stitches and tensioned in the interval between the rectus femoris and the TFL in order to retract and protect those muscles. The cobra retractors were replaced intracapsularly, with one over the superior neck in the pocket created by the base of the greater trochanter and the other on the femoral head. The capsulotomy was extended laterally to the base of the greater trochanter and medially to the lesser trochanter. This required externally rotating the hip. Once the lesser trochanter had been identified, a neck cut was planned according to measurements from preoperative templating. A ruler was cut at the length measured between the superior aspect of the lesser trochanter and the collar of the prosthesis. This line was extended towards the inferior aspect of the lateral cobra retractor to plan a cut which would leave minimal residual femoral neck laterally. The neck was cut at 60 degrees of external rotation along that line. A second cut was performed to remove a large napkin ring and facilitate head extraction. The napkin ring cut and femoral head were removed.?? A broad anterior wall retractor was placed between the labrum and the anterior capsule so that the anterior capsule would prevent capturing and pinching the femoral nerve anteriorly. An additional retractor was placed on the posterior wall. External rotation and traction were applied through the Orlando table so that the cut surface of the femoral neck would not restrict access to the acetabulum. The labrum was excised sharply and the pulvinar was excised with electrocautery to limit bleeding from branches of the obturator artery. Acetabular reamers were selected based on preoperative templating and measurements of the excised femoral head. These were introduced into the acetabulum. Fluoroscopy was utiliz ed to replicate a standing AP pelvis radiograph by centering over the pelvis, rotating until there was appropriate symmetry between the obturator foramen, and introducing caudal tilt to match the position of the pubic symphysis relative to the sacrococcygeal junction according to the patient?s anatomy. Fluoroscopy was utilized to ensure appropriate reaming depth. Once satisfied with the reaming de pth corresponding to the preoperative template and the pinch fit between the columns, an appropriate sized acetabular cup was selected which would provide 1 mm of press-fit. This cup was introduced and manipulated until appropriate abduction and anteversion angles were obtained with careful attention to appropriate abduction and anteversion angles as evaluated by the position of the cup relative to the anterior and posterior dahl of the acetabulum and the AP fluoroscopy which recreated the patient?s standing radiograph. The cup was impacted into place. Peripheral osteophytes were removed. Attention was then turned to the femur. All retractors were removed, traction was released, a retractor was placed in the interval between the hip capsule and the gluteus minimus, and the hip was externally rotated to 90 degrees. Traction was applied through the Orlando table to tension the lateral capsule and this was released using electrocautery. Traction was released and a Orlando hook was placed posteriorly around the proximal femur at the level of the vastus ridge. The table height was lowered in order to restrict the tension on the anterior structures during hip hyperextension to limit the risk of femoral nerve palsy. With traction off and the hip at 90 degrees of external rotation, the hip was hyperextended and adducted while manually elevating the femur away from the acetabulum with the Orlando hook to ensure it would not be caught behind the greater trochanter. An asymmetric retractor was placed over the calcar and a broad double-pronged retractor was placed over the greater trochanter. The tag stitch capturing the lateral leaflet of the capsule was moved to the medial side, leaving the conjoined and piriformis tendons isolated in the face of the greater trochanter. The hip was externally rotated and elevated. A release of the conjoined tendon was not necessary in order to obtain adequate exposure for broaching. The canal was opened with an opening broach and a rasp was used to remove cancellous bone. A rongeur was used to remove the residual lateral bone at the base of the greater trochanter to avoid placing the stem in varus. The femur was then broached to the appropriate sized stem yielding good rotational fit and fill of the canal as well as appropriate version of the stem trial. Neck and head trials were placed, all retractors were removed and the hip was returne d to neutral abduction and extension. I then reduced the hip. An AP pelvis fluoroscopic image matching the preoperative standing radiograph was obtained with both lesser trochanters visible and both hips in 40 degrees of external rotation. This demonstrated appropriate leg length and offset. The contralateral side had more offset, however this was likely due to increased offset during her prior total hip arthroplasty. Shenton's line appeared appropriate. An AP hip fluoroscopic image was obtained with the hip in neutral rotation which demonstrated appropriate canal fill. Hip stability was evaluated with 90 degrees of external rotation and a 45 degree drop test which demonstrated good stability. The hip was dislocated and I returned to the broaching position. The definitive stem was placed and the trunnion was cleaned and dried. I placed a ceramic head with a dual mobility outer head onto the trunnion and impacted it into place on the Astudillo taper.?? All retractors were removed and the hip was reduced. A dilute mixture of betadine and peroxide was used to bathe the soft tissues during final fluoroscopic assessment. Appropriate component positioning was confirmed on an AP pelvis radiograph with the operative and nonoperative legs in 40 degrees of external rotation, evaluating leg length and offset. Appropriate stem fill was evaluated on an AP hip radiograph with the operative leg in neutral rotation. No fractures were identified on these radiographs. Stability was satisfactory with a 90 degree external rotation test as well as a 45 degree drop test. The hip was copiously irrigated with pulse lavage. The capsule was closed with absorbable interrupted suture. The TFL fascia was closed with barbed suture while carefully protecting the lateral femoral cutaneous nerve from entrapment. A mixture of Ropivacaine, Epinephrine, Clonidine and Toradol was infiltrated throughout the soft tissues. The skin was closed with 2-0 and 3-0 sutures. Surgical glue was applied and a soft dressing was placed.??The sponge, instrument and needle counts were reported as being correct at the end of the case.??No obvious complications occurred. The patient was transferred from the [facility] back to a stretcher. The patient emerged from anesthesia without difficulty and was taken to the PACU in a stable condition.? Plan for aftercare: * Anterior hip precautions * Weightbearing as tolerated * Mobilization as soon as the patient has recovered from anesthesia. If physical therapists are unavailable at the time the patient is ready to ambulate, then nursing staff should help patient ambulate * Aspirin 81 twice per day for DVT prophylaxis * Multimodal pain regimen with no IV opioids ordered * Anticipate discharge home tomorrow * Patient requesting home health physical therapy and we will request the assistance of social work in setting this up * Follow up at [facility] in 2 weeks * Detailed postoperative instructions available at [email or web address]
[2023-10-14] MEDS: HYDROMORPHONE 1 MG INJ IV (10:41)
[2023-10-14] MEDS: hydrOXYzine 50 MG/ML INJ 25 MG IM (10:42)
[2023-10-14] MEDS: OXYCODONE IR 5 MG TABLET PO ×4 (10:42→23:59)
[2023-10-14] MEDS: ONDANSETRON 4 MG/2 ML INJ IV (10:43)
[2023-10-14] MEDS: IBUPROFEN 400 MG TABLET 800 MG PO ×2 (12:18→20:46)
[2023-10-14] MEDS: TRAMADOL 50 MG TABLET PO ×2 (12:18→23:58)
[2023-10-14] MEDS: LACTATED RINGERS 1,000 ML 100 ML IV ×2 (12:22→19:33)
--- NOTE | 2023-10-14 13:56 | PT.IIE ---
Current Diagnoses Unilateral primary osteoarthritis, right hip (10/14/23) Surgery Performed Operation Date: 10/14/23 07:45 Actual Procedures p Total Hip Arthroplasty/Anterior Approach(Right) - Jamie Washburn MD Surgical History (Last Updated 10/11/23 @ 10:27 by Yue Schultz RN) Anesthesia H/O: hysterectomy (~1979) History of hip surgery (~2019) History of lumbar fusion (~2014) 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) Hx of cholecystectomy Hx of ovarian cystectomy S/P cervical spinal fusion (~2015) Medical History (Last Updated 10/07/23 @ 20:55 by Giovanna Cardona) Anxiety Arthritis Cervical spine disease Chronic back pain Depression DJD (degenerative joint disease) GERD (gastroesophageal reflux disease) Hearing loss Hypothyroidism Neuropathy Osteoarthritis Paroxysmal atrial fibrillation (~2014) Shingles (~2022) Thyroid nodule Yeast infection Yeast infection of the vagina Physical Therapy Inpatient Evaluation/Re-Eval M1 PT/OT-IP Prior Functional Status Start: 10/14/23 15:21 Freq: NEEDED Status: Active Protocol: Document 10/14/23 13:56 AB (Rec: 10/14/23 15:39 AB [id number]) Medical Review Prior Functional Status Medical History Reviewed Yes Communication able to answer questions but with memory issues Mobility and Gait pt stated that she was modified indpeendent with all mobilities and ambulation without AD but occasionally uses a SPC due to hip pain Social History Household Members spouse Living Arrangements House Number of Floors (Floors) Two Floors Number of Stairs To Enter/Railing? 4 steps without rails to enter 15 steps R rail ascending to bedroom level Home Environment Standard Height Toilet,Tub/ Shower Home Equipment Front Wheel Walker,Straight Cane,Tub Transfer Bench,Hand Held Shower Additional Social History Comment pt statd that her daughter will be staying with her to assist as long as needed pt has a toilet safety frame M2 PT-IP Current Condition Start: 10/14/23 15:21 Freq: NEEDED Status: Active Protocol: Document 10/14/23 13:56 AB (Rec: 10/14/23 15:39 AB [id number]) Physical Therapy Current Condition Current Condition Evaluation Date 10/14/23 Treatment Diagnosis s/p R MIQUEL anterior; difficulty in walking Onset Date 10/14/23 M3 PT-IP Subjective Start: 10/14/23 15:21 Freq: NEEDED Status: Active Protocol: Document 10/14/23 13:56 AB (Rec: 10/14/23 15:39 AB [id number]) Subjective Physical Therapy Visit Type Type Initial Evaluation Visit Start Time 13:56 Visit Stop Time 15:00 Number of ACADEMIC VICE PRESIDENT Visits 64 Physical Therapy Visit Comments Patient Comments agreeable to do PT Therapy Pain Assessment Pain When Pain Assessed At Rest Pain Present Pain Present Pain Reported Location Right Hip Intensity 2 Scale Used increases with mobility Pain Behaviors Facial Grimacing,Guarding, Holding Area Pain Management Techniques Apply Cold,Distraction, Modification of Treatment,Re- positioning,Timing of Activity with Medications M4 PT-IP Mobility and Gait Start: 10/14/23 15:21 Freq: NEEDED Status: Active Protocol: Document 10/14/23 13:56 AB (Rec: 10/14/23 15:39 [id number]) PT-Bed Mobility Assessment Supine to Sit Supine to Sit Maximum Assistance,1 Person Assistance,2 Person Assistance ,Head of Bed Elevated Scooting Scooting to Edge of Bed Maximum Assistance PT-Transfer Assessment Sit to and From Stand Sit to and from Stand Moderate Assistance,1 Person Assistance,Use of Upper Extremities Equipment Transfer Assistive Device Gait Belt,Front Wheeled Walker Orthotic/Prosthetic Devices or Brace: No Transfers Transfer Destination Chair Transfer Technique ambulated Transfer Ability Level of Assist Minimal Assistance,Moderate Assistance,1 Person Assistance ,Use of Upper Extremities Comments Mobility Comments pt supine in bed and agreeable to do PT. obtained PLOF and home set up from pt. pt noted to have some confusion. BP in supine: 128/62. post-op folder provided to pt and reviewed contents. educated pt regarding R hip anterior precautions. pt requires cues for hip precautions and has difficulty recalling her precautions. RLE heel slides completed prior to mobility. pt completed supine to sit max A x 1-2 and max cues. HOB elevated ~ 10 deg. c/o increase RLE pain with mobility with increase guarding noted. pt was able to sit on EOB SBA to CGA. BP checked: 117/55. no c/o dizziness. reviewed precautions again before standing and walking and pt unable to recall. completed sit to stand mod A and max cues. ambulated in room using FWW ~ 12 ft min to mod A and max cues for safety and precautions. presents with unsteady gait and with very slow pacing. pt sat on the chair. positioned on the chair. set up caregiver training for tomorrow at 10am and pt stated that her daughter will be coming in the hospital tonight and she will inform her daughter regarding training. Left pt with OT to take over pt's care. Gait Assessment Gait Gait Assistance Required: Minimum Assistance,Moderate Assistance Distance (Feet) 12 Able to Maintain Weight Bearing Status Yes During Gait Assistive Devices Assistive Device Gait Belt,Front Wheeled Walker Orthotic/Prosthetic Devices or Brace: No Gait Deviations General Gait Pattern Decreased Stride Length, Decreased Feet Clearance Factors Limiting Gait Function Factors Limiting Gait Function Decreased Activity Tolerance, Decreased Strength,Difficulty Following Directions,Limited Range of Motion,Pain,Poor Balance,Poor Safety Awareness PT-Balance Assessment Sitting Balance and Reactions Static Sitting Balance Ability Good Dynamic Sitting Balance Ability Fair Standing Balance and Reactions Static Standing Balance Ability Fair Dynamic Standing Balance Ability Poor Device Used FWW M5 PT-IP Objective Assessments Start: 10/14/23 15:21 Freq: NEEDED Status: Active Protocol: Document 10/14/23 13:56 AB (Rec: 10/14/23 15:39 AB [id number]) Orientation Orientation/Cognition Level of Alertness Alert Orientation Name,Place,Situation Safety Awareness Decreased Safety Awareness Memory Description Short Term Impaired,Kier Tender Impaired Comments with slight confusion Gross Range of Motion Lower Extremity ROM Assessment Left Impaired Impairments L knee extension: ~ 10 less to 0 Strength Lower Extremity Strength Assessment Left Impaired Hip 3+/5 Knee 3+/5 Coordination Assessment Gross Coordination Gross Coordination WNL Muscle Tone Muscle Tone WNL Yes M6 PT-IP Treatment Start: 10/14/23 15:21 Freq: NEEDED Status: Active Protocol: Document 10/14/23 13:56 AB (Rec: 10/14/23 15:39 AB [id number]) Physical Therapy Treatment Exercises Exercises Heel Slides Education Education Provided Precautions,Weight Bearing Status,Post-Op Packet,Safety M7 PT-IP Assessment and Plan Start: 10/14/23 15:21 Freq: NEEDED Status: Active Protocol: Document 10/14/23 13:56 AB (Rec: 10/14/23 15:39 [id number]) PT Summary Assessment and Plan Potential Rehabilitation Potential Fair Status of Condition at Evaluation Evolving Summary Impairments Pain,ROM,Strength,Balance, Coordination,Sensation,Tone, Cognition,Bed Mobility, Transfers,Gait,Activity Tolerance Assessment Summary pt is a 78 y/o F s/p R MIQUEL anterior approach POD0. pt has R anterior hip precautions and is WBAT. educated pt regarding hip precautions but pt unable to recall despite education and needs max cues for precautions during mobility. pt requiring max A x 1-2 for bed mobility, mod A for sit to stand and min to mod A for ambulation using FWW but was only able to ambulate ~ 12 ft using FWW. Caregiver training set up for tomorrow at 10am. will continue to assess progress for safe d/c plan. d/c depending if caregiver will be able to safely assist pt with mobility . pt will require 24/7 assist at this time and also needs to complete stair climbing as pt has 4 steps to enter the house without rails. Goals Bed Mobility Goal Standby Assistance Transfer Goal Standby Assistance,Front Wheeled Walker Gait Goal Standby Assistance,Front Wheel Walker Gait Distance 150 Other Goals up/down 4 steps SPC/PRODUCT STRATEGY DIRECTOR CGA up/down 15 steps R rail ascending SBA Days to Meet Goals 5 Frequency of Treatment Frequency Of Treatment Twice a Day Treatment Plan Physical Therapy Treatment Plan Bed Mobility Training,Transfer Training,Gait Training, Therapeutic Exercise,Balance Retraining,Post Op Education, Discharge Planning,Hot or Cold Pack,Neuromuscular Re-ed, Coordination Retraining,Manual Therapy Other Recommendations and Next Treatment Caregiver trainin10/15/23 @ [facility] 10am Precautions Anterior Hip Precautions No Hip Extension,No Hip External Rotation Weight Bearing Status Weight Bearing Status Weight Bear as Tolerated Allowed Weight Bearing Amount (enter % RLE WBAT or #) (%) Recommendations To Nursing Amount of Assist Needed 1 Person Assist Discharge Recommendations PT Discharge Recommendations Home with 24/7 Assist Available,Home Health,SNF Rehab,Home vs SNF Transportation Needs at Discharge Private Vehicle
--- NOTE | 2023-10-14 14:40 | OT.IP.EVAL ---
Current Diagnoses Unilateral primary osteoarthritis, right hip (10/14/23) Surgery Performed Operation Date: 10/14/23 07:45 Actual Procedures p Total Hip Arthroplasty/Anterior Approach(Right) - Jamie Washburn MD Past Medical History (Last Updated 10/07/23 @ 20:55 by Giovanna Cardona) Anxiety Arthritis Cervical spine disease Chronic back pain Depression DJD (degenerative joint disease) GERD (gastroesophageal reflux disease) Hearing loss Hypothyroidism Neuropathy Osteoarthritis Paroxysmal atrial fibrillation (~2014) Shingles (~2022) Thyroid nodule Yeast infection Yeast infection of the vagina Surgical History (Last Updated 10/11/23 @ 10:27 by Yue Schultz RN) Anesthesia H/O: hysterectomy (~1979) History of hip surgery (~2019) History of lumbar fusion (~2014) 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) Hx of cholecystectomy Hx of ovarian cystectomy S/P cervical spinal fusion (~2015) Occupational Therapy Inpatient Evaluation/Re-Eval M1 PT/OT-IP Prior Functional Status Start: 10/14/23 15:21 Freq: NEEDED Status: Active Protocol: Document 10/14/23 13:56 AB (Rec: 10/14/23 15:39 AB [id number]) Medical Review Prior Functional Status Medical History Reviewed Yes Communication able to answer questions but with memory issues Mobility and Gait pt stated that she was modified independent with all mobilities and ambulation without AD but occasionally uses a SPC due to hip pain Social History Household Members spouse Living Arrangements House Number of Floors (Floors) Two Floors Number of Stairs To Enter/Railing? 4 steps without rails to enter 15 steps R rail ascending to bedroom level Home Environment Standard Height Toilet,Tub/ Shower Home Equipment Front Wheel Walker,Straight Cane,Tub Transfer Bench,Hand Held Shower Additional Social History Comment pt stated that her daughter will be staying with her to assist as long as needed pt has a toilet safety frame M2 OT-IP Current Condition Start: 10/14/23 15:28 Freq: Status: Active Protocol: Document 10/14/23 15:28 [facility] (Rec: 10/14/23 16:11 [facility] [id number]) Occupational Therapy Current Condition Current Condition Evaluation Date 10/14/23 Treatment Diagnosis S/P R MIQUEL anterior Diagnosis Onset Date 10/14/23 Post Operative Precautions Anterior Hip Precautions No Hip Extension,No Hip External Rotation M3 OT- IP Subjective and Pain Start: 10/14/23 15:28 Freq: Status: Active Protocol: Document 10/14/23 15:28 [facility] (Rec: 10/14/23 16:11 [facility] [id number]) OT- Subjective Occupational Therapy Visit Type Type Initial Evaluation Visit Start Time 14:40 Visit Stop Time 15:28 Occupational Therapy Visit Comments Patient Comments Pt trying to get up with PT and able to join in for therapy eval. Patient/Caregiver Goals To go home. OT Pain Assessment Pain When Pain Assessed During Mobility Pain Present Pain Present Pain Reported Location Right Hip Pain Behaviors Crying,Facial Grimacing, Holding Area M4 OT- IP ADL's Start: 10/14/23 15:28 Freq: Status: Active Protocol: Document 10/14/23 15:28 [facility] (Rec: 10/14/23 16:11 [facility] [id number]) OT [id number] Comments OT Self-Feeding Comments Not at meal time. OT ADL-Grooming Comments OT Grooming Comments Not performed. OT ADL-Oral Care Comments Oral Care Comments NOt performed. OT ADL-Dressing General Eval Lower Body Dressing Ability Maximum Assistance Areas Needing Assistance Socks Assistive Devices Dressing Assistive Devices Pneumatic Tester Mechanic,Sock Aid Comments OT Dressing Comments Showed pt use of sales planner and sock aid to assist for LB dressing needs. Educated to dress her RLE first and take out last. OT ADL-Toileting Comments OT Toileting Comments Pt has not been having to go since surgery. Pt would benefit from a bedside commode to use. OT ADL-Bathing Comments OT Bathing Comments Pt states has a tub bench at home to use. M5 OT- IP IADL's Start: 10/14/23 15:28 Freq: Status: Active Protocol: Document 10/14/23 15:28 [facility] (Rec: 10/14/23 16:11 [facility] [id number]) OT-Instrumental Activities of Daily Living Deficits IADL Deficits Identified Deficits Home Safety Awareness Awareness of Need for Assistance at Home Good Awareness Meal Preparation Meal Preparation Caregiver Provides Assist Plan Nurse Plan Nurse Caregiver Provides Assist M6 OT- IP Functional Cognition Start: 10/14/23 15:28 Freq: Status: Active Protocol: Document 10/14/23 15:28 [facility] (Rec: 10/14/23 16:11 [facility] [id number]) Cognitive Factors Limiting Selfcare Function Cognitive Ability Level of Alertness Alert,Drowsy Patient Orientation Name,Place,Situation Attention Span Ability Capable of Focused Attention, Capable of Sustained Attention Ability to Follow Commands Able to Follow One Step Commands with Increased Time, Able to Follow One Step Commands with Repetition Safety Awareness Decreased Ability to Apply Precautions,Underestimates Need for Assistance Cognitive Comments Cognitive Assessment Comments Pt a bit drowsy at the beginning of the session and not able to recall the steps and precautions and then after much repetition pt able recall and incorporate her precautions. Pt is still forgetful and tends to want to pull up on the FWW to stand. Pt needing cues for safety awareness. OT- Vision and Hearing OT- Vision Assessment Vision Assessment Comments Pt states wears TV glasses and has hear aids but prefers not to wear them. M7 OT- IP Mobility and Balance Start: 10/14/23 15:28 Freq: Status: Active Protocol: Document 10/14/23 15:28 [facility] (Rec: 10/14/23 16:11 [facility] [id number]) OT- Bed Mobility Assessment Supine to Sit Supine to Sit Assist Moderate Assistance,Maximum Assistance,2 Person Assistance Sit to Supine Sit to Supine Assist Maximum Assistance,1 Person Assistance Scooting Scooting to Edge of Bed Contact Guard Assistance,1 Person Assistance OT-Transfer Assessment Sit to and From Stand Sit to and from Stand Minimal Assistance Transfers Transfer Ability Minimal Assistance Technique Transfer Destination Bed,Chair Transfer Technique Stand Step Pivot Devices Transfer Assistive Devices Straight Cane,Front Wheeled Walker Comments Mobility Comments MODA/MAXAX 2 to get to the edge of the bed and MAX AX1 to help get back into bed. Pt KRISTEN to stand to FWW and assist for IV pole and O2. Pt on 1L on O2 and at 95%. On RA pt drops to 90%. OT- Balance Assessment Sitting Balance and Reactions Static Sitting Balance Ability Good Dynamic Sitting Balance Ability Fair Standing Balance and Reactions Static Standing Balance Ability Fair Dynamic Standing Balance Ability Fair M9 OT- IP Assessment and Plan Start: 10/14/23 15:28 Freq: Status: Active Protocol: Document 10/14/23 15:28 [facility] (Rec: 10/14/23 16:11 [facility] [id number]) OT Summary Assessment and Plan Potential Rehabilitation Potential Excellent Analytic Complexity at Evaluation Low Summary OT Impairments Pain,Strength,Balance, Functional Mobility,Dressing, Toileting,Bathing,Toilet Transfers,Shower Transfers, Activity Tolerance Progress Towards Goals Progressing Toward Goals Assessment Summary Pt low complexity and main barriers are pain, still a little grooy from surgery, and needing use of O2 now. Pt is needing extensive assist for bed mobility. Pt to have caregiver training tomorrow with PT at 10AM. Pt states looking to get a sock aid for home use. Pt may also benefit from getting a BSC. Goals Self-Feeding Goal Independent Grooming Goal Independent Dressing Goal Independent,Pneumatic Tester Mechanic,Sock Aid Toileting Goal Independent Bathing Goal Standby Assistance Toilet Transfer Goal Independent Shower Transfer Goal Standby Assistance Days to Meet Goals 7 Frequency of Treatment Frequency Of Treatment Once a Day Treatment Plan OT Treatment Plan ADL Training,Functional Cognition Training,Functional Mobility,Patient/Family Education,Discharge Planning Discharge Recommendations OT Discharge Recommendations Home with 11/04 Assist Available,Outpatient PT Home Equipment Needs sock aid and BSC Transportation Needs at Discharge Private Vehicle
--- NOTE | 2023-10-14 18:59 | PC.NURSE ---
Patient arrived from PACU this afternoon. Alert, OX3 slightly forgetful and [place]. She denies N/V. She tolerates water and jello. C/O of R hip pain and spasms 5-7/10 well controlled with prn pain medications. Aquacel dressing to R hip c/d/i. She is able to participate with PT/OT this afternoon with mod assist to chair. Ice machine to R hip, SCD's in place, IS use, IVF LR at 100 ml/hr 1 L NC for support. She has not voided this shift. Bladder scan at 1700 =330 cc MD notified and will await bladder scan 400 cc for straight cath. Encouraged to get patient out of bed. Plan for veterinarian laboratory animal care training at 1000 a.m. and plan to d/c home with daughter.
[2023-10-14] MEDS: ASPIRIN EC 81 MG TABLET PO (20:46)
[2023-10-15] MEDS: OXYCODONE IR 5 MG TABLET PO ×3 (03:00→16:28)
[2023-10-15 04:25] LABS: Hematocrit 26.9 % (36-46); Hemoglobin 8.9 g/dL (12.0-16.0)
[2023-10-15] MEDS: LACTATED RINGERS 1,000 ML 100 ML IV (06:34)
[2023-10-15] MEDS: IBUPROFEN 400 MG TABLET 800 MG PO (07:36)
[2023-10-15 07:46] VITALS: O2SAT 96
[2023-10-15] MEDS: VENLAFAXINE ER 75 MG CAP 225 MG PO (08:30)
[2023-10-15] MEDS: GABAPENTIN 300 MG CAPSULE PO (08:30)
[2023-10-15] MEDS: polyethylene glycoL 3350 17 GM POWD.PACK PO (08:30)
[2023-10-15] MEDS: ASPIRIN EC 81 MG TABLET PO ×2 (08:30→20:10)
[2023-10-15] MEDS: ACETAMINOPHEN 325 MG TABLET 975 MG PO ×2 (08:31→20:09)
[2023-10-15] MEDS: AMITRIPTYLINE 25 MG TABLET PO (08:31)
[2023-10-15] MEDS: DOCUSATE 100 MG CAPSULE PO ×2 (08:31→20:10)
[2023-10-15] MEDS: PANTOPRAZOLE DR 40 MG TABLET PO (09:13)
--- NOTE | 2023-10-15 09:25 | P.DS_ITS ---
History of Present Illness History of Present Illness Date Patient Seen: 10/15/23 Time Patient Seen: 09:25 Chief complaint: Right Total Hip Arthroplasty/Anterior Approach Narrative: Operative Date/Time/Diagnoses Date of procedure: 10/14/23 Pre-op diagnosis: Right hip arthritis Post-op diagnosis: same Procedure & Clinicians Procedure: Right total hip arthroplasty Same procedure as scheduled: Yes Surgeon: Jamie Washburn Prospecting Driller Helper: Adilia Fregoso Anesthesia Type: General and Local Operative Notes Estimated Blood Loss (mL): 350 Procedure in detail: Implants: Depuy Total Hip Arthroplasty: * Depuy Bimentum size 51 cup? * Depuy Actis femoral stem size 4 standard offset? * 28 mm +1.5 dual mobility ceramic femoral head? Procedure Summary: 78-year-old female with prior lumbar spine fusion and a T-score of 1.2 in her operative hip. Given her spinal pelvic fusion I elected to utilize a mono block dual mobility acetabular component. Given her good bone density despite her age of [age] years old I utilized an uncemented collared stem. Her templated implants were slightly smaller than the sizes I was able to achieve a good Press-Fit with in the acetabulum and the femur. She had good stability with all stability tests with a standard offset and a +1.5 28 mm head. She had slightly diminished offset compared to the contralateral side however I attributed this to increased offset during her prior total hip arthroplasty and [place]'s line was appropriately restored. Discharge Providers Provider Discharge Date: 10/15/23 Primary care physician: Aisha Henry DO Consults: 10/14/23 06:00 Consult to Anesthesiology Routine Comment: Consulting Provider: Anesthesiologist Reason for consultation: Regional block for post operative pain control 10/14/23 12:02 Consult to Discharge Planning Routine Comment: Consult to Occupational Therapy Evaluate & Treat Comment: Physician Instructions: Evaluate and treat Consult to Physical Therapy Evaluate & Treat Comment: Physician Instructions: post op MIQUEL protocol Discharge provider: Korin Smith PA-C Summary Hospital Course Discharge Diagnosis: Right hip osteoarthritis, s/p right total hip arthroplasty Hospital Course: Ms Garrison's hospital course was remarkable for difficulty voiding after surgery. She required in-and-out catheterization overnight. At the time of my visit, she had not yet been OOB or worked w/ PT. She was eating without difficulty. Her pain was well-controlled with oral medication. She says she usually takes IBPN 800 mg q6h and would like her orders changed to reflect this; I recommended no more than 600mg q 6h, and she was accepting of this. Her daughter is coming in to work w/ PT this morning. Ms Garrison lives locally and would like to go home later today if she is able to void independently. She says she had issues with urinary retention following last MIQUEL. Exam Vital Signs (past 8 hours): - 10/15/23 07:46 Pulse Oximetry 96 Oxygen Delivery Method Nasal Cannula Oxygen Flow Rate 1 Fraction of Inspired Oxygen 24 Fraction of Inspired Oxygen 24 SaO2/FiO2 Ratio 400 Oxygen Delivery Method Nasal Cannula Oxygen Flow Rate 1 Narrative Exam Narrative: 5/5 strength in DF, PF, EHL; 4/5 hip flexors, quadriceps, hamstrings on right. Sensation to light touch intact in RLE; calf soft and compressible. Aquacel dressing CDI. 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 Brother Diabetes mellitus Social History household members: spouse Smoking Status: Never smoker alcohol intake: current Discharge Assessment & Plan Assessment and Plan Assessment: Right hip osteoarthritis, s/p right total hip arthroplasty Plan of Treatment: Pt can discharge home later today if cleared by PT and able to void independently. Pt has meds for discharge. Outpt PT, f/u in office in 2 weeks as scheduled. Discharge Plan Discharge Plan Patient Disposition: Home Provider Discharge Comment: Follow up at [facility] in 2 weeks for post-op appointment. Detailed postoperative instructions available at [email or web address] Discharge orders & Medications Discharge Orders: Discharge (Order); Ordered 10/15/23 Ordered By: Korin Smith Prescriptions: Continued gabapentin 300 mg capsule 300 mg PO DAILY venlafaxine 75 mg capsule,extended release 24hr 225 mg PO DAILY amitriptyline 25 mg tablet 25 mg PO DAILY acetaminophen [Tylenol Extra Strength] 500 mg Tablet 1,000 mg PO TID ibuprofen 400 mg tablet 800 mg PO TID PRN (Reason: pain) Qty: 40 0RF Follow up/Referrals: Macy Montejo ARNP [Non-Staff] - Jamie Washburn MD [Physician] - 10/28/23 4:30 pm (Follow up w/ Johann Gagnon PA-C, at [facility] in [place].) Diet/Activity/Treatments Diet: Diet as Tolerated Activity: Weightbearing as tolerated to right leg, anterior hip precautions. Cold/Heat Therapy: Ice to hip as needed for pain. Skin/Wound/Dressing Care Report to your healthcare provider any signs of infection, such as:: chills, fever, night sweats, unusual drainage and unusual redness Dressing: May shower. Leave dressing in place until follow up in office. No bathing or otherwise soaking incision. Call the office if the dressing becomes saturated inside. Visit Report/Discharge Packet Instructions: DI for Hip Replacement, DI for Prescription Opioid Use Stand Alone Forms: Patient Portal/API, Surgery Discharge Discharge Data Primary Care Provider: Aisha Henry Attending Provider: Jamie Washburn Quality VTE Deep Vein Thrombosis/Pulmonary Embolism Present on Admission: Yes
--- NOTE | 2023-10-15 10:00 | PT.IPTN ---
Current Diagnoses Unilateral primary osteoarthritis, right hip (10/14/23) Surgery Performed Operation Date: 10/14/23 07:45 Actual Procedures p Total Hip Arthroplasty/Anterior Approach(Right) - Jamie Washburn MD Physical Therapy Treatment Note M2 PT-IP Current Condition Start: 10/14/23 15:21 Freq: NEEDED Status: Active Protocol: Document 10/14/23 13:56 AB (Rec: 10/14/23 15:39 AB [id number]) Physical Therapy Current Condition Current Condition Evaluation Date 10/14/23 Treatment Diagnosis s/p R MIQUEL anterior; difficulty in walking Onset Date 10/14/23 M3 PT-IP Subjective Start: 10/14/23 15:21 Freq: NEEDED Status: Active Protocol: Document 10/15/23 10:46 TS (Rec: 10/15/23 11:30 TS [id number]) Subjective Physical Therapy Visit Type Type Treatment Note Visit Start Time 10:00 Visit Stop Time 10:44 Number of THEATRE PROFESSOR Visits 44 Physical Therapy Visit Comments Patient Comments Pt found resting in bed, family in room, pt reports pain with movement, is agreeable to PT. Therapy Pain Assessment Pain When Pain Assessed During Mobility Pain Present Pain Present Pain Reported M4 PT-IP Mobility and Gait Start: 10/14/23 15:21 Freq: NEEDED Status: Active Protocol: Document 10/15/23 10:46 TS (Rec: 10/15/23 11:30 TS [id number]) PT-Bed Mobility Assessment Supine to Sit Supine to Sit Moderate Assistance,1 Person Assistance Scooting Scooting to Edge of Bed Minimal Assistance PT-Transfer Assessment Sit to and From Stand Sit to and from Stand Moderate Assistance,1 Person Assistance,Use of Upper Extremities Equipment Transfer Assistive Device Gait Belt,Front Wheeled Walker Orthotic/Prosthetic Devices or Brace: No Comments Mobility Comments Supine in bed, BP 115/52, pt agreeable to PT. She recalled 1/2 hip precautions, did not recall no hip ext. Supine to sit ModA with handheld assist to upright trunk. She scooted to EOB with with Ida for R hip. Pt sat EOB SBA with BUE support,denied any dizziness or ligthheadedness. Sit to stand x3 ModA with caregiver assist and FWW. Pt ambulated in room ~80' CGA/SBA with FWW and step to gait gait, progressed to step thru gait. She performed steps x4 with caregivers ModA and handheld assist. pt required cues for for step sequencing, pt could not recall sequencing with every step. Pt was left bak in chair, all needs met. Gait Assessment Gait Gait Assistance Required: Standby Assistance,Contact Guard Assist Distance (Feet) 80 Able to Maintain Weight Bearing Status Yes During Gait Assistive Devices Assistive Device Gait Belt,Front Wheeled Walker Orthotic/Prosthetic Devices or Brace: No Gait Deviations General Gait Pattern Decreased Stride Length, Decreased Feet Clearance Factors Limiting Gait Function Factors Limiting Gait Function Decreased Activity Tolerance, Decreased Strength,Difficulty Following Directions,Limited Range of Motion,Pain,Poor Balance,Poor Safety Awareness Comments Gait Comments See mobility comments Stair Climbing Assessment Evaluation Level of Assist On Stairs Moderate Assistance,2 Person Assistance Devices Stair Climbing Assistive Devices Left Railing,Right Railing Technique/Endurance Stair Climbing Direction Ascend and Descend Stair Climbing Technique Step to Step Number of Steps Climbed 4 Comments Stair Climbing Comments See mobility commnets PT-Balance Assessment Sitting Balance and Reactions Static Sitting Balance Ability Good Dynamic Sitting Balance Ability Fair Standing Balance and Reactions Static Standing Balance Ability Fair Dynamic Standing Balance Ability Fair Device Used FWW M5 PT-IP Objective Assessments Start: 10/14/23 15:21 Freq: NEEDED Status: Active Protocol: Document 10/14/23 13:56 AB (Rec: 10/14/23 15:39 AB [id number]) Orientation Orientation/Cognition Level of Alertness Alert Orientation Name,Place,Situation Safety Awareness Decreased Safety Awareness Memory Description Short Term Impaired,Assisted Impaired Comments with slight confusion Gross Range of Motion Lower Extremity ROM Assessment Left Impaired Impairments L knee extension: ~ 10 less to 0 Strength Lower Extremity Strength Assessment Left Impaired Hip 3+/5 Knee 3+/5 Coordination Assessment Gross Coordination Gross Coordination WNL Muscle Tone Muscle Tone WNL Yes M6 PT-IP Treatment Start: 10/14/23 15:21 Freq: NEEDED Status: Active Protocol: Document 10/15/23 10:46 TS (Rec: 10/15/23 11:30 TS [id number]) Physical Therapy Treatment Education Education Provided Precautions,Weight Bearing Status,Post-Op Packet,Safety M7 PT-IP Assessment and Plan Start: 10/14/23 15:21 Freq: NEEDED Status: Active Protocol: Document 10/15/23 10:46 TS (Rec: 10/15/23 11:30 TS [id number]) PT Summary Assessment and Plan Potential Rehabilitation Potential Fair Summary Impairments Pain,ROM,Strength,Balance, Coordination,Sensation,Tone, Cognition,Bed Mobility, Transfers,Gait,Activity Tolerance Progress Towards Goals Progressing Toward Goals Assessment Summary Jessica is making good progress with her mobility. She continues to require MaxA for supine to sit and Ida for scooting to EOB. She performed sit to stand x3 ModA from caregiver and use of FWW . She progressed her gait to ~ 80' SBA/CGA, progressed to step thru gait from step to gait. She performed steps x4 ModA x2. Pt has difficulty recalling sequencing and requires max cues for step sequencing at all times. Caregiver was educated in donning of gait belt, bed mobility, STS, gait and stair assistance. PT is recommending home with 24 assist and HHPT. Goals Bed Mobility Goal Standby Assistance Transfer Goal Standby Assistance,Front Wheeled Walker Gait Goal Standby Assistance,Front Wheel Walker Gait Distance 150 Other Goals up/down 4 steps SPC/RN OTOLARYNGOLOGY CGA up/down 15 steps R rail ascending SBA Days to Meet Goals 5 Frequency of Treatment Frequency Of Treatment Twice a Day Treatment Plan Physical Therapy Treatment Plan Bed Mobility Training,Transfer Training,Gait Training, Therapeutic Exercise,Balance Retraining,Post Op Education, Discharge Planning,Hot or Cold Pack,Neuromuscular Re-ed, Coordination Retraining,Manual Therapy Precautions Anterior Hip Precautions No Hip Extension,No Hip External Rotation Weight Bearing Status Weight Bearing Status Weight Bear as Tolerated Allowed Weight Bearing Amount (enter % RLE WBAT or #) (%) Recommendations To Nursing Amount of Assist Needed 1 Person Assist Discharge Recommendations PT Discharge Recommendations Home with 11/04 Assist Available,Home Health Transportation Needs at Discharge Private Vehicle
--- NOTE | 2023-10-15 10:09 | CM.DANOTE ---
Addendum entered by Tena Disla R.N. 10/15/23 13:01: Gave patient the [facility] brochure Addendum entered by Tena Disla R.N. 10/15/23 11:52: Spoke to Leda from [facility] [facility] and let her know about the referral, will fax this over. Confirmed that patient is not currently on their services, but has been in the past. They have openings on or about Oct 21, unless they can get her in sooner. Patient did work with P.T today, but still needs to void. Will fax over the referral to [facility] for RN, P.T, O.T. Original Note: DCP: Case received, EMR reviewed and met with patient. Introduced self and role. Was able to obtain information regarding patient's baseline activity level prior to surgery. DCP assessment completed with information currently available. Patient is a 78 year old female who admitted yesterday morning to the care of the orthopedic team. PCP: Dr. Henry. Payer: confirmed: Medicare/[employer]. Patient came to the hospital via private vehicle for a surgical procedure. Patient had right total hip arthroplasty. Patient has history of right hip arthritis. Met with patient in her room. She was sitting up in bed, alert, pleasant. Confirmed that she resides here in [place] with spouse, Neftaly. At her baseline, she drives short distances, and has a cane. Her daughter, Vee, is to be assisting her when she goes home. Patient will be working with P.T. Asked her about outpatient therapy, stated, she would rather have someone come to the house, has had [facility] before. Will complete face to face, and will contact [facility] today. P: Patient does have DC orders, daughter is coming in at about 10:00 for caregiver training. Will await notes and include these to send to [facility]. Tena Disla RN/Community Health Planning Director Discharge Planning/Care Management CM Discharge Assessment Start: 10/15/23 10:05 Freq: Status: Active Protocol: Document 10/15/23 10:05 (Rec: 10/15/23 10:09 [id number]) Discharge Planning Assessment Assigned Horizontal Drill Operator Tena Disla RN/Community Health Planning Director Advance Directives? No: Declines further information History Provided By Patient,Medical Record Prior Living Arrangements House Household Members spouse Type of transporation used prior to Drives own vehicle admit Comment Was only driving short distances prior to surgery. Independent with ADL's Yes Is patient alert and oriented? Yes Needs Assistance With Home Chores / Shopping Caregiver for Another No DME Already Rented / Owned Cane Patient/Family Preference Home with Home Health Comment Patient is requesting [facility], has used them before. Barriers to Discharge No Comment Has her daughter, that will be assisting her, also lives with spouse. Discharge Plan Home with Home Health Transportation Arrangement Daughter Referrals Initiated Home Health Additional Comment Will send referral to [facility], pending P.T. notes If patient plan is home with home health Yes : Has signed face to face form been completed? Medicare Choice List Provided Yes Medicare choice list reviewed on patient electronic tablet with SNF/HH Preference Wants [facility]. Has Agency SNF been contacted Yes Comment Will do so today. Whiteboard Updated in Patient Room with Yes name and ext. # of Horizontal Drill Operator Review Status In Process Next Review Type Continued Stay Review Pre-Anesthesia Assessment Start: 10/11/23 10:20 Freq: Status: Active Protocol: Document 10/11/23 10:21 CAB (Rec: 10/11/23 10:54 CAB [id number]) Pre-Anesthesia Assessment PAC Comment Attempts to reach pt for PAC assessment unsuccessful, messages left x 3 for return call. Chart review only Preferred Name Lacie Patient Information Reviewed Via Chart Review Diagnostic Results BMP/CMP,CBC,EKG Comment Labs/EKG @ [facility] 09/22/23 Primary Care Provider Macy Montejo Comment PCP clearance form 09/13/23 scanned and in surgery folder for dos review Seen Specialist in Last 12 Months Yes Specialist Seen Orthopedist Primary Language Uruguayan Preferred Language Uruguayan Platform Material Handler Manager Required No Height 5 ft 7 in Weight 172 lb Body Mass Index (BMI) 26.9 Hearing Ability Normal Visual Impairment No Limitations Visual Assist None Dentition Type Teeth, Natural Present Barriers to Learning None Other Aids No Hx Anesthesia Reactions No Hx Family Anesthesia Reaction No Hx Malignant Hyperthermia No Hx Blood Transfusions No Anesthesia Review Requested No Oracle Consultant No alcohol intake current alcohol intake frequency a few times a week Smoking Status Never smoker Substance Use Type does not use History of Falling (Recent or History of Yes ) Patient is completely paralyzed or No completely immobile Mental Status Oriented to own ability Is patient on oxygen? No Does patient have MORENO/SOB No Hx Sleep Apnea No Currently Taking a Beta Sanket No Can You Climb a Flight of Stairs Without Yes SOB Hx Chest Pain No Hx SOB No Hx Syncope or Dizziness No Anti-Coagulant Therapy No Has a Geriatric Physical Therapist No Cardiac Testing No Hx Pacemaker/ICD No Pacemaker Rep Required? No Cardiac Clearance Received Not Applicable Diet Type At Home Vegetarian Dysphagia No Bladder Pattern Urgency Urinary Catheter Present No Hx Urinary Self Catheterization No Diabetes No HgbA1C 6.0 Date 09/22/23 Patient No Lactating No Hx Drug Resistant Organism No Presence of External or Internal Medical Yes: TENS unit, lumbar/ Devices cervical hardware, left hip Received a COVID vaccine? Yes Marital Status Lives With spouse Patient Discharge Plan Description Return Home Do You Have Any Spiritual Beliefs That No May Affect Your HC Choices? Do You Have Any Cultural Practices That No May Affect Your HC Choices? Emergency Contact Name Neftaly () or Vee ( daughter) Emergency Contact Phone Number Pt to update dos Advance Directives? No: Declines further information Power of Power Shovel Mechanic No
[2023-10-15 10:43] VITALS: BP 110/62; PULSE 88; RESP 17; TEMP 36.6; O2SAT 97
--- NOTE | 2023-10-15 10:43 | PM.PN.1 ---
Subjective Subjective Interval history: Patient seen this morning. Working with a physical integration practitioner when I entered the room. She was ambulating with a walker. Pain well controlled. Dressing clean dry and intact. Ambulating with nonantalgic gait very slowly. Watched her get in and out of bed. Currently preparing to do stair training. No anesthesia complications. Sensory motor function completely intact. Has not yet urinated, we will continue working on that and hopefully get her spontaneously urinating prior to discharge. Exam Vital Signs (past 8 hours): - 10/15/23 07:46 Pulse Oximetry 96 Oxygen Delivery Method Nasal Cannula Oxygen Flow Rate 1 Fraction of Inspired Oxygen 24 Fraction of Inspired Oxygen 24 SaO2/FiO2 Ratio 400 Oxygen Delivery Method Nasal Cannula Oxygen Flow Rate 1 Objective Labs 10/15/23 04:06 Labs: Laboratory Results - last 24 hr 10/15/23 04:06 Hgb 8.9 L Hct 26.9 L PFS Medical History (Updated 10/07/23 @ 20:55 by Giovanna Cardona) Shingles (~2022) Chronic back pain Cervical spine disease Hearing loss Thyroid nodule Anxiety Yeast infection Yeast infection of the vagina GERD (gastroesophageal reflux disease) Paroxysmal atrial fibrillation (~2014) Neuropathy DJD (degenerative joint disease) Arthritis Osteoarthritis Hypothyroidism Depression Surgical History (Updated 10/11/23 @ 10:27 by Yue Schultz RN) 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) Anesthesia History of hip surgery (~2019) Hx of ovarian cystectomy Hx of cholecystectomy H/O: hysterectomy (~1979) S/P cervical spinal fusion (~2015) History of lumbar fusion (~2014) Family History (Updated 10/07/23 @ 20:56 by Giovanna Cardona) Father History of heart disease Mother No problems noted. Brother Diabetes mellitus Social History household members: spouse Smoking Status: Never smoker alcohol intake: current Quality VTE Deep Vein Thrombosis/Pulmonary Embolism Present on Admission: Yes
[2023-10-15] MEDS: IBUPROFEN 400 MG TABLET 600 MG PO ×2 (12:35→17:55)
--- NOTE | 2023-10-15 12:55 | PT.IPTN ---
Current Diagnoses Unilateral primary osteoarthritis, right hip (10/14/23) Surgery Performed Operation Date: 10/14/23 07:45 Actual Procedures p Total Hip Arthroplasty/Anterior Approach(Right) - Jamie Washburn MD Physical Therapy Treatment Note M2 PT-IP Current Condition Start: 10/14/23 15:21 Freq: NEEDED Status: Active Protocol: Document 10/14/23 13:56 AB (Rec: 10/14/23 15:39 AB [id number]) Physical Therapy Current Condition Current Condition Evaluation Date 10/14/23 Treatment Diagnosis s/p R MIQUEL anterior; difficulty in walking Onset Date 10/14/23 M3 PT-IP Subjective Start: 10/14/23 15:21 Freq: NEEDED Status: Active Protocol: Document 10/15/23 13:34 TS (Rec: 10/15/23 13:46 TS [id number]) Subjective Physical Therapy Visit Type Type Treatment Note Visit Start Time 12:55 Visit Stop Time 13:30 Number of DISH ROOM WORKER Visits 2 Physical Therapy Visit Comments Patient Comments Pt found resting in bed, would like to get up to void, pt agreeable to PT. Therapy Pain Assessment Pain When Pain Assessed During Mobility Pain Present Pain Present Pain Reported M4 PT-IP Mobility and Gait Start: 10/14/23 15:21 Freq: NEEDED Status: Active Protocol: Document 10/15/23 13:34 TS (Rec: 10/15/23 13:46 TS [id number]) PT-Bed Mobility Assessment Supine to Sit Supine to Sit Moderate Assistance,1 Person Assistance Sit to Supine Sit to Supine Moderate Assistance,1 Person Assistance Scooting Scooting to Edge of Bed Contact Guard Assistance PT-Transfer Assessment Sit to and From Stand Sit to and from Stand Minimal Assistance,1 Person Assistance,Use of Upper Extremities Equipment Transfer Assistive Device Gait Belt,Front Wheeled Walker Orthotic/Prosthetic Devices or Brace: No Comments Mobility Comments Supine in bed pt performed ankle pumps, quad sets, glute sets and heel slides x5. Supine to sit HOB elevated ModA, pt demonstrates increased strength in RLE moving to EOB. STS with FWW Ida with use of FWW, pt cued for increased arm support, pt is slow to stand. She ambulated to toilet to attempt voiding ~10' CGA/SBA. STS from toilet Ida with use of FWW and grab bar. Pt ambulated back to bed, Sit to supine ModA for LEs into bed. Pt was left in bed, all needs met, RN notified. Gait Assessment Gait Gait Assistance Required: Standby Assistance,Contact Guard Assist Distance (Feet) 20 Able to Maintain Weight Bearing Status Yes During Gait Assistive Devices Assistive Device Gait Belt,Front Wheeled Walker Orthotic/Prosthetic Devices or Brace: No Gait Deviations General Gait Pattern Decreased Stride Length, Decreased Feet Clearance Factors Limiting Gait Function Factors Limiting Gait Function Decreased Activity Tolerance, Decreased Strength,Limited Range of Motion,Pain,Poor Balance,Poor Safety Awareness Comments Gait Comments See mobility comments PT-Balance Assessment Sitting Balance and Reactions Static Sitting Balance Ability Good Dynamic Sitting Balance Ability Fair Standing Balance and Reactions Static Standing Balance Ability Fair Dynamic Standing Balance Ability Fair Device Used FWW M5 PT-IP Objective Assessments Start: 10/14/23 15:21 Freq: NEEDED Status: Active Protocol: Document 10/14/23 13:56 AB (Rec: 10/14/23 15:39 AB [id number]) Orientation Orientation/Cognition Level of Alertness Alert Orientation Name,Place,Situation Safety Awareness Decreased Safety Awareness Memory Description Short Term Impaired,Supervisor Blood Donor Recruiters Impaired Comments with slight confusion Gross Range of Motion Lower Extremity ROM Assessment Left Impaired Impairments L knee extension: ~ 10 less to 0 Strength Lower Extremity Strength Assessment Left Impaired Hip 3+/5 Knee 3+/5 Coordination Assessment Gross Coordination Gross Coordination WNL Muscle Tone Muscle Tone WNL Yes M6 PT-IP Treatment Start: 10/14/23 15:21 Freq: NEEDED Status: Active Protocol: Document 10/15/23 13:34 TS (Rec: 10/15/23 13:46 TS [id number]) Physical Therapy Treatment Education Education Provided Precautions,Weight Bearing Status,Post-Op Packet,Safety M7 PT-IP Assessment and Plan Start: 10/14/23 15:21 Freq: NEEDED Status: Active Protocol: Document 10/15/23 13:34 TS (Rec: 10/15/23 13:46 TS [id number]) PT Summary Assessment and Plan Potential Rehabilitation Potential Fair Summary Impairments Pain,ROM,Strength,Balance, Coordination,Sensation,Tone, Cognition,Bed Mobility, Transfers,Gait,Activity Tolerance Progress Towards Goals Progressing Toward Goals Assessment Summary Brady continues to make progress with her mobility. She is ModA for supine to sit with HOB elevated. She did demonstrate increased strength in RLE when bringing LEs over EOB. She required decreased assist for STS x2 with Ida and use of FWW. She continues to walk short distances with use of FWW and demonstrates good carryover of FWW management. Pt does require some cueing during mobility due to memory issues. PT is recommending home with 24/7 assist and HHPT. Goals Bed Mobility Goal Standby Assistance Transfer Goal Standby Assistance,Front Wheeled Walker Gait Goal Standby Assistance,Front Wheel Walker Gait Distance 150 Other Goals up/down 4 steps SPC/ASSEMBLER [employer] CGA up/down 15 steps R rail ascending SBA Days to Meet Goals 5 Frequency of Treatment Frequency Of Treatment Twice a Day Treatment Plan Physical Therapy Treatment Plan Bed Mobility Training,Transfer Training,Gait Training, Therapeutic Exercise,Balance Retraining,Post Op Education, Discharge Planning,Hot or Cold Pack,Neuromuscular Re-ed, Coordination Retraining,Manual Therapy Precautions Anterior Hip Precautions No Hip Extension,No Hip External Rotation Weight Bearing Status Weight Bearing Status Weight Bear as Tolerated Allowed Weight Bearing Amount (enter % RLE WBAT or #) (%) Recommendations To Nursing Amount of Assist Needed 1 Person Assist Discharge Recommendations PT Discharge Recommendations Home with 24/7 Assist Available,Home Health Transportation Needs at Discharge Private Vehicle
--- NOTE | 2023-10-15 13:59 | PC.NURSE ---
Addendum entered by Arely Turner R.N. 10/15/23 18:49: pt was unable to void on her own. cancelled DC orders. Original Note: pt unable to void, bladder scan was 400-650cc. straight cath was 410cc out.
[2023-10-15 20:01] VITALS: BP 101/48; PULSE 87; RESP 16; TEMP 36.4; O2SAT 92
[2023-10-15 21:13] VITALS: BP 108/54
[2023-10-16] MEDS: OXYCODONE IR 5 MG TABLET PO ×2 (00:13→03:31)
[2023-10-16] MEDS: IBUPROFEN 400 MG TABLET 600 MG PO ×3 (00:39→12:57)
[2023-10-16 01:14] VITALS: BP 119/60; PULSE 80; RESP 17; TEMP 35.9; O2SAT 94
--- NOTE | 2023-10-16 02:12 | PC.NURSE ---
Patient unable to void on her own, agreeable to take a walk via SBA with gaitbelt and walker. Still unable to void on her own. Bladder scan result 753ml. Straight cath with result of 800mL.
[2023-10-16 07:52] VITALS: BP 121/57; PULSE 85; RESP 18; TEMP 36.2; O2SAT 94
--- NOTE | 2023-10-16 08:09 | PM.PN.1 ---
Subjective Subjective Interval history: Patient seen this morning. Resting comfortably. No acute distress. Ambulated with physical therapy. Did require catheterization yesterday however this morning she was able to spontaneously urinate. She had 100 mL of output. Pain is well controlled Exam Vital Signs (past 8 hours): - 10/16/23 01:14 10/16/23 07:52 Temperature 96.6 F L 97.2 F L Pulse Rate 80 85 Respiratory Rate 17 18 Blood Pressure 119/60 121/57 L Pulse Oximetry 94 94 Oxygen Flow Rate 0 0 Fraction of Inspired Oxygen 24 SaO2/FiO2 Ratio 400 Oxygen Delivery Method Room Air Oxygen Flow Rate 0 Narrative Exam Narrative: Right lower extremity exam: Dressing clean dry and intact. Ice machine in place. Flexes extends hallux and ankle. No pain with gentle hip range of motion. Witnessed ambulating with walker yesterday with slow tacho with the assistance with normal motor function in all lower extremity muscle groups Objective Labs 10/15/23 04:06 [facility] Medical History (Updated 10/07/23 @ 20:55 by Giovanna Cardona) Shingles (~2022) Chronic back pain Cervical spine disease Hearing loss Thyroid nodule Anxiety Yeast infection Yeast infection of the vagina GERD (gastroesophageal reflux disease) Paroxysmal atrial fibrillation (~2014) Neuropathy DJD (degenerative joint disease) Arthritis Osteoarthritis Hypothyroidism Depression Surgical History (Updated 10/11/23 @ 10:27 by Yue Schultz RN) 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) Anesthesia History of hip surgery (~2019) Hx of ovarian cystectomy Hx of cholecystectomy H/O: hysterectomy (~1979) S/P cervical spinal fusion (~2015) History of lumbar fusion (~2014) Family History (Updated 10/07/23 @ 20:56 by Giovanna Cardona) Father History of heart disease Mother No problems noted. Brother Diabetes mellitus Social History household members: spouse Smoking Status: Never smoker alcohol intake: current Assessment & Plan Assessment and plan (1) Osteoarthritis: Status: Acute Plan Patient mobilizing well with physical therapy. Has begun spontaneously voiding. Has pain well controlled. Plan for discharge today. Encouraged continued oral hydration to stimulate bladder. Returned for follow up in 2 weeks Quality VTE Deep Vein Thrombosis/Pulmonary Embolism Present on Admission: Yes
[2023-10-16] MEDS: polyethylene glycoL 3350 17 GM POWD.PACK PO (08:12)
[2023-10-16] MEDS: DOCUSATE 100 MG CAPSULE PO (08:13)
[2023-10-16] MEDS: ASPIRIN EC 81 MG TABLET PO (08:13)
[2023-10-16] MEDS: ACETAMINOPHEN 325 MG TABLET 975 MG PO (08:13)
[2023-10-16] MEDS: VENLAFAXINE ER 75 MG CAP 225 MG PO (08:14)
[2023-10-16] MEDS: AMITRIPTYLINE 25 MG TABLET PO (08:14)
[2023-10-16] MEDS: GABAPENTIN 300 MG CAPSULE PO (08:15)
--- NOTE | 2023-10-16 10:11 | CM.DPC ---
DCP Discharge Home with HH Per Ortho , pt is medically stable to d/c home today with HH and no identified barriers to discharge. Per Rn, pt's barrier to d/c yesterday was urinary retention and had to be straight cath'd a couple times but pt has now voided independently today. SIL met bedside with pt as she was about to work with PT and she confirms she is agreeable to d/c home today with [facility] and confirmed she has the [facility] brochure already and has used their services in the past. Pt confirms that her Dtr will provide transport home today and no further d/c needs at this time. PT to work with pt now prior to discharge. SW faxed d/c summary to [facility] for review, F2F and HH orders faxed yesterday already. Plan: Patient to d/c home today via Dtr POV and [facility] to follow for SOC in a couple days and outpt f/u with Ortho. GISELA Garcia
--- NOTE | 2023-10-16 10:42 | PT.IPTN ---
Current Diagnoses Unilateral primary osteoarthritis, right hip (10/14/23) Unspecified osteoarthritis, unspecified site (10/14/23) Surgery Performed Operation Date: 10/14/23 07:45 Actual Procedures p Total Hip Arthroplasty/Anterior Approach(Right) - Jamie Washburn MD Physical Therapy Treatment Note M2 PT-IP Current Condition Start: 10/14/23 15:21 Freq: NEEDED Status: Active Protocol: Document 10/14/23 13:56 AB (Rec: 10/14/23 15:39 AB [id number]) Physical Therapy Current Condition Current Condition Evaluation Date 10/14/23 Treatment Diagnosis s/p R MIQUEL anterior; difficulty in walking Onset Date 10/14/23 M3 PT-IP Subjective Start: 10/14/23 15:21 Freq: NEEDED Status: Active Protocol: Document 10/16/23 10:03 MB (Rec: 10/16/23 10:41 MB [id number]) Subjective Physical Therapy Visit Type Type Treatment Note Visit Start Time 10:03 Visit Stop Time 10:30 Number of OCCUPATIONAL HEALTH SPECIALIST Visits 0 Physical Therapy Visit Comments Patient Comments Pt sitting up in chair and talking on phone, agreeable to PT. Therapy Pain Assessment Pain When Pain Assessed During Mobility Pain Present Pain Present Pain Reported Location Right Hip Intensity 4 Scale Used Numeric (0 - 10) Pain Behaviors Crying,Facial Grimacing Pain Management Techniques Distraction M4 PT-IP Mobility and Gait Start: 10/14/23 15:21 Freq: NEEDED Status: Active Protocol: Document 10/16/23 10:03 MB (Rec: 10/16/23 10:41 MB [id number]) PT-Bed Mobility Assessment Supine to Sit Supine to Sit Standby Assistance,1 Person Assistance,Bedrails Sit to Supine Sit to Supine Standby Assistance,1 Person Assistance Scooting Scooting to Edge of Bed Standby Assistance Scooting Up and Down in Bed Standby Assistance PT-Transfer Assessment Sit to and From Stand Sit to and from Stand Contact Guard Assistance,1 Person Assistance,Use of Upper Extremities Equipment Transfer Assistive Device Gait Belt,Front Wheeled Walker Orthotic/Prosthetic Devices or Brace: No Transfer Ability Level of Assist Contact Guard Assistance,1 Person Assistance,Use of Upper Extremities Comments Mobility Comments PT ed pt in use of blanket rolled to help lift right leg into bed. Pt does not follow commands to push up from the chair and bed or to reach back for it rather than sitting without reaching back or reaching for RW. Pt asks PT to move her legs for her and PT ed pt that she needs to try to move her legs herself. Gait Assessment Gait Gait Assistance Required: Standby Assistance,1 Person Assist Distance (Feet) 150 Able to Maintain Weight Bearing Status Yes During Gait Assistive Devices Assistive Device Gait Belt,Front Wheeled Walker Orthotic/Prosthetic Devices or Brace: No Gait Deviations General Gait Pattern Decreased Stride Length, Decreased Feet Clearance Factors Limiting Gait Function Factors Limiting Gait Function Decreased Activity Tolerance, Decreased Strength,Limited Range of Motion,Pain,Poor Balance,Poor Safety Awareness Comments Gait Comments Pt with slow stepping and decreased foot clearance. She c/o 2/10 right hip pain at rest that increases to 4/10 after stair training and she is a little tearful. Pt appears to have cognitive and/ or hearing challenges that decrease command-following and safety awareness. Stair Climbing Assessment Evaluation Level of Assist On Stairs Contact Guard Assistance,1 Person Assistance Devices Stair Climbing Assistive Devices Right Railing Technique/Endurance Stair Climbing Direction Ascend and Descend Stair Climbing Technique Step to Step Number of Steps Climbed 3 Stair Climbing Set # Repetitions (reps) 2 Comments Stair Climbing Comments PT ed pt to turn to face rail and to put both hands on rail and to step up with left foot and then right foot for ascend and reverse for descend: Pt states that she has right rail ascend at home. PT-Balance Assessment Sitting Balance and Reactions Static Sitting Balance Ability Good Dynamic Sitting Balance Ability Fair Standing Balance and Reactions Static Standing Balance Ability Fair Dynamic Standing Balance Ability Fair Device Used FWW M5 PT-IP Objective Assessments Start: 10/14/23 15:21 Freq: NEEDED Status: Active Protocol: Document 10/14/23 13:56 AB (Rec: 10/14/23 15:39 AB [id number]) Orientation Orientation/Cognition Level of Alertness Alert Orientation Name,Place,Situation Safety Awareness Decreased Safety Awareness Memory Description Short Term Impaired,Mcc Impaired Comments with slight confusion Gross Range of Motion Lower Extremity ROM Assessment Left Impaired Impairments L knee extension: ~ 10 less to 0 Strength Lower Extremity Strength Assessment Left Impaired Hip 3+/5 Knee 3+/5 Coordination Assessment Gross Coordination Gross Coordination WNL Muscle Tone Muscle Tone WNL Yes M6 PT-IP Treatment Start: 10/14/23 15:21 Freq: NEEDED Status: Active Protocol: Document 10/16/23 10:03 MB (Rec: 10/16/23 10:41 MB [id number]) Physical Therapy Treatment Education Education Provided Precautions,Safety M7 PT-IP Assessment and Plan Start: 10/14/23 15:21 Freq: NEEDED Status: Active Protocol: Document 10/16/23 10:03 MB (Rec: 10/16/23 10:41 MB [id number]) PT Summary Assessment and Plan Potential Rehabilitation Potential Fair Summary Impairments Pain,ROM,Strength,Balance, Coordination,Sensation,Tone, Cognition,Bed Mobility, Transfers,Gait,Activity Tolerance Progress Towards Goals Progressing Toward Goals Assessment Summary Pt presents with cognitive and /or hearing challenges that make command following and safety challenging. She requires encouragement to move her legs herself for bed mobility and does not follow cues or have recall of training of where to put hands for transfers. She increases gait and stait mobility today. Goals Bed Mobility Goal Independent Transfer Goal Independent,Front Wheeled Walker Gait Goal Standby Assistance,Front Wheel Walker Gait Distance 150 Other Goals Ascend and descend steps facing and holding onto right rail ascend, step to pattern with SBA up to 15 steps. Days to Meet Goals 5 Frequency of Treatment Frequency Of Treatment Twice a Day Treatment Plan Physical Therapy Treatment Plan Bed Mobility Training,Transfer Training,Gait Training, Therapeutic Exercise,Balance Retraining,Post Op Education, Discharge Planning,Hot or Cold Pack,Neuromuscular Re-ed, Coordination Retraining,Manual Therapy Precautions Anterior Hip Precautions No Hip Extension,No Hip External Rotation Weight Bearing Status Weight Bearing Status Weight Bear as Tolerated Allowed Weight Bearing Amount (enter % RLE WBAT or #) (%) Recommendations To Nursing Amount of Assist Needed 1 Person Assist Discharge Recommendations PT Discharge Recommendations Home with 11/04 Assist Available,Home Health Transportation Needs at Discharge Private Vehicle
== END 2023-10-16 13:15 | disposition home or self-care (01) ==
LOC: OR 06:24 → AC 06:26
PROVIDERS: PCP Family Medicine; Referring Provider Orthopaedic Surgery Adult Reconstructive Orthopaedic Surgery; Visit Provider Orthopaedic Surgery Adult Reconstructive Orthopaedic Surgery
PROC: (CPT 27130; principal; 2023-10-14 07:45)
DX: M16.11 Unilateral primary osteoarthritis, right hip (principal); Z98.1 Arthrodesis status; Z96.642 Presence of left artificial hip joint
CPT/HCPCS: 27130; 36415; 73502; 76000; 85014; 85018; 94762; 97116; 97162; 97165; 97530; 97535; C1776; J0690; J1100; J1170; J2250; J2405; J2704; J3010; J3410

== ENCOUNTER → 2024-04-20 13:19 | Outpatient (CLI) | payer MEDICARE, SELFPAY ==
[2023-10-14 12:24] VITALS: BMI 26.9
--- NOTE | 2024-04-20 13:47 | EKG_ITS ---
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
[2024-04-20 14:46] LABS: Add Manual Diff / Slide Review NO; Basophils Absolute Auto 100 /uL (0-100); Basophils Percent Auto 0.9 % (0-2); Eosinophils Absolute Auto 100 /uL (0-450); Eosinophils Percent Auto 1.2 % (2-4); Hematocrit 34.5 % (36-46); Hemoglobin 11.1 g/dL (12.0-16.0); Lymphocytes Absolute Auto 1400 /uL (1100-4500); Mean Corpuscular HGB Conc 32.1 % (30-36); Mean Corpuscular Volume 80.9 fL (80-100); Monocytes Absolute Auto 500 /uL (0-900); Monocytes Percent Auto 7.7 % (3-14); Neutrophils Absolute Auto 4400 /uL (1500-7000); Neutrophils Percent Auto 68.2 % (50-75); Platelet Count 387 X10^3/uL (150-400); Red Blood Cell Count 4.27 X10^6/uL (4.0-5.2); Red Cell Distribution Width 17.9 % (11.6-14.8); White Blood Cell Count 6.5 X10^3/uL (4.5-11.0)
[2024-04-20 15:08] LABS: BUN Creatinine Ratio 19.4 (6-22); Blood Urea Nitrogen 14 mg/dL (7-17); Carbon Dioxide 22 mmol/L (22-32); Chloride 106 mmol/L (98-107); Estimated Glomerular Filt Rate > 60 mL/min (>60); Glucose 218 mg/dL (80-110); HEMOLYSIS < 15 (0-50); Potassium 4.1 mmol/L (3.4-5.1); Sodium 138 mmol/L (137-145)
== END ==
PROVIDERS: PCP Family Medicine; Referring Provider Orthopaedic Surgery Orthopaedic Surgery of the Spine; Visit Provider Orthopaedic Surgery Orthopaedic Surgery of the Spine
DX: Z01.818 Encounter for other preprocedural examination (principal); R73.9 Hyperglycemia, unspecified; Z01.812 Encounter for preprocedural laboratory examination
CPT/HCPCS: 36415; 80048; 83036; 85025; 93005

== ENCOUNTER → 2024-06-11 13:12 | Outpatient (CLI) | payer MEDICARE, SELFPAY ==
[2023-10-14 12:24] VITALS: BMI 26.9
--- NOTE | 2024-06-11 13:13 | DI.CT.S_ITS ---
PROCEDURE: CT LUMBAR SPINE WO CON INDICATIONS: SPINAL STENOSIS TECHNIQUE: Noncontrast 3 mm thick sections acquired from the T12 level to the sacrum. Sagittal and coronal reformats were constructed. For radiation dose reduction, the following was used: automated exposure control. COMPARISON: [facility], CR, XR LUMBAR SPINE WITH FLEXION EXTENSION 5 VIEWS, 05/28/2024, 14:36, MRI lumbar spine without contrast 06/04/2023 FINDINGS: Image quality: Excellent; streak artifact from hip arthroplasty and lumbar fixation hardware limits evaluation to some extent. Bones: Diffuse osseous demineralization. Status post L4-S1 PSIF without hardware complication. Straightening of the lumbar lordosis. Ongoing fusion at the L4-L5 and L5-S1 levels. Mild levocurvature of the lumbar spine with the apex at L3. Discs: Multilevel disc height loss. Vacuum disc phenomenon at the L1-L2, L2-L3, and L3-L4 levels. Multilevel findings: Ligamentum flavum thickening, facet joint arthropathy, disc bulges. T12-L1: No bony central canal or foraminal stenosis. L1-L2: Mild bony central canal stenosis. Moderate left and mild right foraminal stenosis. L2-L3: Mild bony central canal stenosis. No significant foraminal stenosis. L3-L4: At least moderate bony central canal stenosis secondary to disc bulge, ligamentum flavum thickening, and facet arthropathy. Mild left and severe right foraminal stenosis L4-L5: No bony central canal or foraminal stenosis. L5-S1: No bony central canal or foraminal stenosis. Soft tissues: No retroperitoneal masses or hematomas. Visualized aorta is normal in caliber. Mild aortoiliac atherosclerosis. Prior cholecystectomy clips. Partially identified bilateral total hip arthroplasties. IMPRESSION: 1. Status post prior L4-S1 PSIF with ongoing fusion and without hardware complication. 2. Severe right foraminal stenosis at L3-L4. 3. Moderate bony central canal stenosis at L3-L4. Dictated by: Dale Garcia M.D. on 06/12/2024 at 13:43 Approved by: Dale Garcia M.D. on 06/12/2024 at 13:57
== END ==
PROVIDERS: PCP Family Medicine; Referring Provider Orthopaedic Surgery Orthopaedic Surgery of the Spine; Visit Provider Orthopaedic Surgery Orthopaedic Surgery of the Spine
DX: M48.062 Spinal stenosis, lumbar region with neurogenic claudication (principal); Z98.1 Arthrodesis status
CPT/HCPCS: 72131

== ENCOUNTER 2024-07-18 06:17 | Inpatient (IN) | payer MEDICARE, SELFPAY ==
[2023-10-14 12:24] VITALS: BMI 26.9
[2024-07-03 12:29] VITALS: BMI 26.9
[2024-07-16 14:50] VITALS: BMI 29.5
[2024-07-18] VITALS (12 sets, daily range): BP systolic 118–166; BP diastolic 55–84; PULSE 82–101; RESP 13–17; TEMP 35.8–37; O2SAT 90–98; BMI 29.5
--- NOTE | 2024-07-18 | DI.RAD.S_ITS ---
PROCEDURE: XR LUMBAR SPINE 2-3V INDICATIONS: L3-4 TLIF, L3-5 PSF TECHNIQUE: 3 views of the lumbar spine were acquired. COMPARISON: [facility], CT, CT LUMBAR SPINE WO CON, 06/11/2024, 13:21. Findings and impressio: Fluoroscopic intraoperative images obtained for posterior lumbar fusion hardware revision and extension to L3. Please see operative note for full details. Background degenerative changes are present. Dictated by: Shaun Mejía M.D. on 07/18/2024 at 14:09 Approved by: Shaun Mejía M.D. on 07/18/2024 at 14:10
[2024-07-18] MEDS: ACETAMINOPHEN 325 MG TABLET 975 MG PO (06:59)
[2024-07-18] MEDS: GABAPENTIN 300 MG CAPSULE 900 MG PO (07:07)
[2024-07-18] MEDS: LACTATED RINGERS 1,000 ML 42 ML IV ×2 (07:08→09:29)
--- NOTE | 2024-07-18 07:48 | PM.PREOP ---
Pre-operative Note Interval Note History & Physical reviewed/Exam performed by Physician: Yes Changes to H&P: No
[2024-07-18] MEDS: CEFAZOLIN 2 GM/100 ML PREMIX 100 ML IV ×2 (08:07→16:16)
[2024-07-18] MEDS: BUPIVACAINE 0.25% (PF) 60 ML, EPINEPHrine 0.15 MG INJ (08:27)
--- NOTE | 2024-07-18 08:46 | SUR.OPER ---
Prone on spine table, head in foam head support, padded chest and pelvic supports, gel pad at knees, lower legs supported by pillows; nipples, genitalia and toes free of pressure, arms secured on foam padded arm boards at <90 degrees abduction. Tape over blanket at thigh secured to table.
[2024-07-18] MEDS: BUPIVACAINE LIPOSOME 266 MG/20 ML VIAL INJ (09:22)
--- NOTE | 2024-07-18 11:05 | P.OP_ITS ---
Operative Date/Time/Diagnoses Date of procedure: 07/18/24 Time of procedure: 07:40 Pre-op diagnosis: 1. L3-4 spinal stenosis with radiculopathy 2. History of L4-S1 fusion with instrumentation with retained hardware Post-op diagnosis: same Procedure & Clinicians Procedure: 1. L3-4 Postero-lateral and posterior interbody fusion 2. L3-4 interbody cage placement. 3. L3-4 decompressive laminectomy with bilateral facetecomies 4. L3-4 Posterior non-segmental instrumentation 5. L4-5 posterior non-segemental hardware removal 6. L4-5 exploration of fusion with revision laminectomy on the left 7. [place] of bone marrow from iliac crest 8. Utilization of microsurgical technique and operating microscope 9. Utilization of robotic assisted navigation Same procedure as scheduled: Yes Indications: Patient has been having chronic back pain and worsening lumbar radiculopathy. Patient was found to have L3-4 foraminal stenosis correlating with her symptoms with previous L4-S1 posterior fusion with instrumentation. Patient failed multiple conservative management with worsening pain weakness and numbness in her lower extremity. Patient has been having difficulty performing activity of daily living. After discussing risks benefits of treatment options, patient elected proceed with surgery. Surgeon: Mateusz De Jesus Head Neck Surgeon: Korin Smith Click Yes if Unassisted: No Anesthesia Type: General Operative Notes Closure Type: primary Specimen(s): none sent Prosthetic devices, grafts, tissues, transplants, or devices: Globus CREO MIS screws, Rise cage Applied: catheter Estimated Blood Loss (mL): 100 Blood products transfused: none Procedure in detail: Patient was seen in the preoperative area. Risks and benefits of the surgery was discussed with the patient. Informed consent was obtained from the patient and placed in the chart. Surgical site was marked. Patient was taken to the operative room. General anesthesia was administered. Prophylactic antibiotic was given to the patient less than 30 min before the incision was made. Patient was placed into a prone position on the Sim table. Patient's back was then prepped and draped in the sterile fashion. Time-out was performed at this time. After patient was prepped and draped, patient's PSIS was palpated and marked bilaterally. Small 1 cm incision was made over the PSIS for placement of the reference probes. Two trocar was placed into the PSIS 1 on each side. The reference probe was attached to the trocar of the reference apparatus. At this time the C-arm imaging was used to confirm AP and lateral of L3, L4, L5 vertebrae and merged the C-arm imaging using the Casabi robotic navigation system with the CT of the lumbar spine. After successful merging was completed and confirmed, skin marker was used to enoc out the skin incision using the Casabi robotic arm. Bilateral incision was made at this time. Pre templated trajectory was used and guided using the Casabi robotic navigation system for bilateral L3 pedicle screw placement. This was done by using the robotic arm to guide the high-speed bur to make a cortical entry point. Next a drill was placed also using the robotic arm and guided using the navigation system drilling partially through bilateral L3 pedicles. Next L3 pedicle screws it was pre templated and measured was placed onto the power experienced truck driver and inserted into the pedicles bilaterally. After both screws were placed C-arm imaging was taken of both AP and lateral to confirm the placement. Excellent placement of the screws were confirmed and a matched precisely with the pre planned screw placement using the navigation system. MARs retractor was inserted using [employer] Foundation[employer] guidence. Globus MARS retractors was placed inside the incision and docked onto the L3 lamina. Using microsurgical technique and operating microscope, a L3 laminectomy and L3-4 facetectomy was performed using a Kerrison rongeur. The laminectomy and facetectomy was performed in order to decompress patient's cauda equina as well as the nerve roots exiting at the L3-4 level. Patient was found have severe lateral recess, central and neural foramen stenosis which was fully decompressed after the laminectomy facetectomy. More than 75% of the facets were removed during the process of decompression rendering L3-4 level grossly unstable and required a fusion procedure at the same time. The disc space at L3-4 was id entified, and a total diskectomy was performed at L3-4 level. The endplates were decorticated using a rasp and shaver. The total diskectomy and decortication was performed at L3-4 level in order to to accomplish a L3-4 fusion. The local bone from the laminectomy and facetectomy was saved for local bone grafting. After the total diskectomy and decortication was completed, Viacel bone graft material was combined with local bone that was harvested earlier. At this time, a separate skin is incision was made over the iliac crest. A Jamshidi needle was inserted into the iliac crest through a separate skin incision on the right. 5 cc of bone marrow aspiration was obtained through the separate skin incision using a Jamshidi needle from the iliac crest. The bone marrow aspiration was combined with local bone and the Viacel bone grafting material. The bone grafting material was placed into the L3-4 interbody space along with a expandable cage. The cage was expanded to its maximum height using the torque limiting screwdriver. The disc preparation as well as the cage insertion were also performed under navigation guidance. After the cage was placed, AP and lateral C-arm imaging was taken to confirm placement of the cage and excellent position was confirmed. Globus MARS retractor was inserted and docked onto the L3-4 posterolateral gutter on the right side. Using the power drill, posterior-lateral decortication was performed at L3-4 level until bleeding cortical bone was identified. The remaining bone grafting material was placed into the L3-4 posterior lateral gutter he order to accomplish posterolateral fusion at the L3- 4 level. Using patient's previous scar incision was made over the L4-5 interval on the left side. Fascia was incised in line with skin incision. Patient's previously placed hardware over the L4-5 level was identified by dissecting down to the level the hardware using a Bovie and a Hook. The edyta between L4-5 [place] was exposed and freed up to get ready for the addition hardware. There was a previously placed cross connector between the L4 and L5 pedicle screws. This was removed using the universal experienced truck driver by removing the locking caps and the c ross connector locking mechanism. After all 3 screws were loosened, the crosslink was removed from the 2 rods without any difficulty. Globus additional hardware was inserted and locked onto the edyta using the torque limiting screwdriver. At this time 2 locking towers were inserted on the left-sided patient's incision onto the L3 and the L4 shank. A edyta was inserted and locked into place after measuring using a caliper. The edyta was locked into place using locking caps and torque limiting screwdriver 2 locking caps was used on the left side. The incision was extended on the right side in the mirror image fashion as the left side. The hardware on the right side was also exposed at L4-5 level in the same fashion. Extension system was attached to the edyta between L4-5 t[place]ips using torque limiting screwdriver. Three locking towers were placed onto the right side of patient's screws and the addition system between the L3-L4 [place]. A edyta was then locked on the right side using 2 locking caps in the same fashion as the left side. L4-5 hemilaminectomy was performed over the previous hardware in order to inspect patient's previous fusion expose the hardware in order to assess patient's fusion status. This was done using microsurgical technique and operating microscope to decompress the epidural space and explored the fusion mass. Solid fusion was identified at L4-5 level with no signs of hardware loosening. After all the hardware was placed, and confirmed with AP and lateral C-arm imaging, the wound was then irrigated with sterile normal saline and packed with Ray-Sriram gauze for 3 min to accomplish hemostasis. After the gauze was removed the deep fascia was closed with #1 Vicryl suture. The subcutaneous layer was closed with 2-0 Vicryl. The skin was closed with skin dimitry. Patient tolerated the procedure well. There were no complications. The Operation could not have been safely performed without compromising the technical result or length of the procedure, without the assistance of a skilled nursing surgical services director. The nursing surgical services director was medically necessary for proper positioning, retraction and manipulation of instruments, proper exposure, surgical preparation, and manipulation of tissue. Neuro monitoring was used throughout the entire case. Motor evoked potential was also performed which found to be baseline and stable throughout the entire case. Complications: none Post-operative Condition: stable Disposition: PACU Plan for aftercare: Admit to inpatient hospital
[2024-07-18] MEDS: hydrOXYzine 50 MG/ML INJ IM (11:27)
--- NOTE | 2024-07-18 12:27 | PC.NURSE ---
Pt to room 217 via bed from PACU. Pt c/o muscle spasms and pain - repositioned Pt in bed. Pt oriented to room, call light, bed controls and tv controls. Reminded Pt not to bend, lift, or twist, and to logroll in bed. Bed alarm on for safety. SCD's on and running. IVF infusing as ordered. Pt agrees to call for assistance as needed and to not get out of bed without assistance. Viewed back [id number].
[2024-07-18] MEDS: OXYCODONE IR 10 MG TABLET PO ×3 (12:30→22:02)
[2024-07-18] MEDS: LACTATED RINGERS 1,000 ML 125 ML IV ×2 (14:53→23:11)
[2024-07-18] MEDS: GABAPENTIN 300 MG CAPSULE 600 MG PO ×2 (14:59→21:02)
--- NOTE | 2024-07-18 15:10 | PT.IIE ---
Current Diagnoses Spinal stenosis, lumbar region without neurogenic claudication (07/18/24) Arthrodesis status (07/18/24) Surgery Performed Operation Date: 07/18/24 07:45 Actual Procedures p L3-4 TLIF L3-5 PSF with HWR-Robot(Not Applicable) - Mateusz De Jesus MD Surgical History (Last Updated 07/16/24 @ 14:55 by Tonie Montejo, RN) Anesthesia H/O: hysterectomy (~1979) History of hip surgery (~2019) History of lumbar fusion (~2014) 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) History of total right hip arthroplasty (09/2023) Hx of cholecystectomy Hx of ovarian cystectomy S/P cervical spinal fusion (~2015) Medical History (Last Updated 07/03/24 @ 13:28 by Zeyad Cleary DO) Anxiety Arthritis Cervical spine disease Chronic back pain Depression DJD (degenerative joint disease) GERD (gastroesophageal reflux disease) Hearing loss HTN (hypertension) Hypothyroidism Laceration of scalp Neuropathy Osteoarthritis Paroxysmal atrial fibrillation (~2014) Shingles (~2022) Tachycardia Thyroid nodule Yeast infection Yeast infection of the vagina Physical Therapy Inpatient Evaluation/Re-Eval M1 PT/OT-IP Prior Functional Status Start: 07/18/24 17:32 Freq: NEEDED Status: Active Protocol: Document 07/18/24 15:10 AB (Rec: 07/18/24 17:51 AB [id number]) Medical Review Prior Functional Status Medical History Reviewed Yes Communication able to make needs known; with slight confusion and slow to respond to questions Mobility and Gait pt stated that she was modified independent with all mobilities and ambulation without AD but tends to furniture cruise. pt holds on to daughter when she goes out of the house for assistance Activities of Daily Living and IADL's per OT note: Pt states able to do but having more difficulty . Social History Household Members spouse,children Living Arrangements House Number of Floors (Floors) Two Floors Number of Stairs To Enter/Railing? 3 steps without rails questionable if steps are platformas pt groggy and not very clear for house set-up. Pt states has 12 steps with right rail going up to the bedroom level. Home Environment Standard Height Toilet,Tub/ Shower Home Equipment Front Wheel Walker,Straight Cane,Tub Transfer Bench, Position Clerk Additional Social History Comment Pt states her spouse and daughter to assist. M2 PT-IP Current Condition Start: 07/18/24 17:32 Freq: NEEDED Status: Active Protocol: Document 07/18/24 15:10 AB (Rec: 07/18/24 17:51 AB [id number]) Physical Therapy Current Condition Current Condition Evaluation Date 07/18/24 Treatment Diagnosis s/p L3-4 TLIF; L4-5 lami; difficulty in walking Onset Date 07/18/24 M3 PT-IP Subjective Start: 07/18/24 17:32 Freq: NEEDED Status: Active Protocol: Document 07/18/24 15:10 AB (Rec: 07/18/24 17:51 AB [id number]) Subjective Physical Therapy Visit Type Type Initial Evaluation Visit Start Time 15:10 Visit Stop Time 15:50 Number of BENCH ASSEMBLY INSPECTOR Visits 0 Physical Therapy Visit Comments Patient Comments agreeable to do PT Therapy Pain Assessment Pain When Pain Assessed At Rest Pain Present Pain Present Pain Reported Location Back Intensity 4 Scale Used Numeric (0 - 10) Pain Management Techniques Distraction,Modification of Treatment,Re-positioning, Timing of Activity with Medications M4 PT-IP Mobility and Gait Start: 07/18/24 17:32 Freq: NEEDED Status: Active Protocol: Document 07/18/24 15:10 AB (Rec: 07/18/24 17:51 AB [id number]) PT-Bed Mobility Assessment Rolling Type of Rolling Log Rolling Level of Assist Maximal Assistance Supine to Sit Supine to Sit Maximum Assistance,Bedrails Sit to Supine Sit to Supine Maximum Assistance,2 Person Assistance Scooting Scooting to Edge of Bed Maximum Assistance PT-Transfer Assessment Sit to and From Stand Sit to and from Stand Moderate Assistance Equipment Transfer Assistive Device Gait Belt,Front Wheeled Walker Comments Mobility Comments pt supine in bed and agreeable to do PT. obtained PLOF and home set up. pt with slight confusion and slow to respond to questions. pt stated that she had 4 previous back surgeries and is aware on her back precautions and log roll. pt recalled 2/3 precautions . educated pt on back precautions. BP in supine: 132/56. completed log roll supine to sit max A and max cues for techniques. pt able to sit on EOB min A and cues. BP checked: 122/68. no c/o dizziness. pt sat on EOB for ~ 2 more minutes. BP rechecked: 129/65. pt completed sit to stand mod A and cues and ambulated ~ 15 ft using FWW initially only needing mod A but midway was needing max A and max cues. pt sat back on EOB. max A x 2 for scooting towards HOB. completed log roll sit to supine max A x 2 and max cues. positioned pt in bed. call light and table placed within reach. Gait Assessment Gait Gait Assistance Required: Moderate Assistance,Maximum Assistance Distance (Feet) 15 Able to Maintain Weight Bearing Status Yes During Gait Assistive Devices Assistive Device Gait Belt,Front Wheeled Walker Orthotic/Prosthetic Devices or Brace: No Gait Deviations General Gait Pattern Ataxic,Decreased Stride Length ,Decreased Feet Clearance,Step -to Gait Factors Limiting Gait Function Factors Limiting Gait Function Decreased Activity Tolerance, Decreased Strength,Difficulty Following Directions,Limited Range of Motion,Pain,Poor Balance,Poor Safety Awareness, Respiratory Distress PT-Balance Assessment Sitting Balance and Reactions Static Sitting Balance Ability Good Dynamic Sitting Balance Ability Fair Standing Balance and Reactions Static Standing Balance Ability Poor Dynamic Standing Balance Ability Poor Device Used FWW M5 PT-IP Objective Assessments Start: 07/18/24 17:32 Freq: NEEDED Status: Active Protocol: Document 07/18/24 15:10 AB (Rec: 07/18/24 17:51 AB [id number]) Orientation Orientation/Cognition Level of Alertness Alert Orientation Name,Situation Safety Awareness Decreased Safety Awareness Memory Description Short Term Impaired,Usp Impaired Comments slow to respond to questions Gross Range of Motion Lower Extremity ROM Assessment Within Functional Limits Strength Lower Extremity Strength Assessment Within Functional Limits Sensation Assessment Sensation Gross Sensation WNL Muscle Tone Muscle Tone WNL Yes M6 PT-IP Treatment Start: 07/18/24 17:32 Freq: NEEDED Status: Active Protocol: Document 07/18/24 15:10 AB (Rec: 07/18/24 17:51 AB [id number]) Physical Therapy Treatment Education Education Provided Precautions,Weight Bearing Status,Post-Op Packet,Safety M7 PT-IP Assessment and Plan Start: 07/18/24 17:32 Freq: NEEDED Status: Active Protocol: Document 07/18/24 15:10 AB (Rec: 07/18/24 17:51 AB [id number]) PT Summary Assessment and Plan Potential Rehabilitation Potential Fair Status of Condition at Evaluation Evolving Summary Impairments Pain,ROM,Strength,Balance, Coordination,Sensation,Tone, Cognition,Bed Mobility, Transfers,Gait,Activity Tolerance Assessment Summary pt is a 78 y/o F s/p L3-4 TLIF , L4-5 exploration and laminectomy POD 0. pt with back precautions. pt requiring max A 1-2 for bed mobility and mod to max A for ambulation using FWW. pt requiring max cues with all tasks. d/c plan depending on progress. pt will have her spouse and daughter to assist her at home. will continue to assess progress. Goals Bed Mobility Goal Standby Assistance Transfer Goal Standby Assistance,Front Wheeled Walker Gait Goal Standby Assistance,Front Wheel Walker Gait Distance 100 Other Goals improve bed mobility, transfers, ambulation using FWW ~ 200 ft mod I up/down 3 platform steps using FWW SBA up/down 12 steps R rail ascending sBA Days to Meet Goals 10 Frequency of Treatment Frequency Of Treatment Twice a Day Treatment Plan Physical Therapy Treatment Plan Bed Mobility Training,Transfer Training,Gait Training, Therapeutic Exercise,Balance Retraining,Post Op Education, Discharge Planning,Hot or Cold Pack,Neuromuscular Re-ed, Coordination Retraining,Manual Therapy Precautions Lumbar Precautions Log Roll,No Twisting,Limit Bending,Lifting Restriction of 10 lbs,Gait Belt above Incisional Area Recommendations To Nursing Amount of Assist Needed 2 Person Assist Discharge Recommendations PT Discharge Recommendations Home with 24/ Assist Available,Home Health Transportation Needs at Discharge Private Vehicle,Wheelchair/ Cabulance
--- NOTE | 2024-07-18 15:47 | OT.IP.EVAL ---
Addendum entered and electronically signed by Josseline Archuleta OT 07/18/24 16:57: esign Original Note: Current Diagnoses Spinal stenosis, lumbar region without neurogenic claudication (07/18/24) Arthrodesis status (07/18/24) Surgery Performed Operation Date: 07/18/24 07:45 Actual Procedures p L3-4 TLIF L3-5 PSF with HWR-Robot(Not Applicable) - Mateusz De Jesus MD Past Medical History (Last Updated 07/03/24 @ 13:28 by Zeyad Cleary DO) Anxiety Arthritis Cervical spine disease Chronic back pain Depression DJD (degenerative joint disease) GERD (gastroesophageal reflux disease) Hearing loss HTN (hypertension) Hypothyroidism Laceration of scalp Neuropathy Osteoarthritis Paroxysmal atrial fibrillation (~2014) Shingles (~2022) Tachycardia Thyroid nodule Yeast infection Yeast infection of the vagina Surgical History (Last Updated 07/16/24 @ 14:55 by Tonie Montejo RN) Anesthesia H/O: hysterectomy (~1979) History of hip surgery (~2019) History of lumbar fusion (~2014) 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) History of total right hip arthroplasty (09/2023) Hx of cholecystectomy Hx of ovarian cystectomy S/P cervical spinal fusion (~2015) Occupational Therapy Inpatient Evaluation/Re-Eval M1 PT/OT-IP Prior Functional Status Start: 07/18/24 16:39 Freq: NEEDED Status: Active Protocol: Document 07/18/24 16:40 [facility] (Rec: 07/18/24 16:54 [facility] [id number]) Medical Review Prior Functional Status Medical History Reviewed Yes Communication I Mobility and Gait Pt states did not use a device but would furniture cruise and hold onto surfaces while walking in the house. Activities of Daily Living and IADL's Pt states able to do but having more difficulty. Social History Household Members spouse,children Living Arrangements House Number of Floors (Floors) Two Floors Number of Stairs To Enter/Railing? 3 steps without rails questionable if steps are platform as pt is very groggy and not very clear for house set-up. Pt states has 12 steps with right rail going up to the bedroom level. Home Environment Standard Height Toilet,Tub/ Shower Home Equipment Front Wheel Walker,Straight Cane,Tub Transfer Bench, Head Of Quality Additional Social History Comment Pt states her spouse and daughter to assist. M2 OT-IP Current Condition Start: 07/18/24 16:39 Freq: Status: Active Protocol: Document 07/18/24 16:40 [facility] (Rec: 07/18/24 16:54 [facility] [id number]) Occupational Therapy Current Condition Current Condition Evaluation Date 07/18/24 Treatment Diagnosis S/P L3-4 TLIF, L4-5 fusion with revision laminectomy on the L Diagnosis Onset Date 07/18/24 Post Operative Precautions Lumbar Precautions Log Roll,No Twisting,Limit Bending,Lifting Restriction of 10 lbs,Gait Belt above Incisional Area M3 OT- IP Subjective and Pain Start: 07/18/24 16:39 Freq: Status: Active Protocol: Document 07/18/24 16:40 [facility] (Rec: 07/18/24 16:54 [facility] [id number]) OT- Subjective Occupational Therapy Visit Type Type Initial Evaluation Visit Start Time 15:10 Visit Stop Time 15:47 Occupational Therapy Visit Comments Patient Comments Pt agreed to get up. Patient/Caregiver Goals TO go home. OT Pain Assessment Pain When Pain Assessed During Mobility Pain Present Pain Present Pain Reported Location Right Hip Pain Behaviors Facial Grimacing M4 OT- IP ADL's Start: 07/18/24 16:39 Freq: Status: Active Protocol: Document 07/18/24 16:40 [facility] (Rec: 07/18/24 16:54 [facility] [id number]) OT [id number] Comments OT Self-Feeding Comments Not performed. OT ADL-Grooming Comments OT Grooming Comments Not performed. OT ADL-Oral Care Comments Oral Care Comments Not performed OT ADL-Dressing General Eval Lower Body Dressing Ability Maximum Assistance Areas Needing Assistance Socks OT ADL-Toileting General Evaluation Toileting Ability Total Assistance Areas Needing Assistance Empty Catheter or Colostomy OT ADL-Bathing Comments OT Bathing Comments Not performed. M5 OT- IP IADL's Start: 07/18/24 16:39 Freq: Status: Active Protocol: Document 07/18/24 16:40 [facility] (Rec: 07/18/24 16:54 [facility] [id number]) OT-Instrumental Activities of Daily Living Deficits IADL Deficits Identified Deficits Home Safety Awareness Home Safety Comments Pt is very groggy and will need assist for ADL and mobility needs at this time. Meal Preparation Meal Preparation Caregiver Provides Assist Point Of Sale Associate Point Of Sale Associate Caregiver Provides Assist M6 OT- IP Functional Cognition Start: 07/18/24 16:39 Freq: Status: Active Protocol: Document 07/18/24 16:40 [facility] (Rec: 07/18/24 16:54 [facility] [id number]) Cognitive Factors Limiting Selfcare Function Cognitive Ability Level of Alertness Drowsy Patient Orientation Name,Situation Attention Span Ability Capable of Focused Attention, Unable to Sustain Attention Ability to Follow Commands Able to Follow One Step Commands with Increased Time, Able to Follow One Step Commands with Repetition Memory Description Short Term Impaired Safety Awareness Decreased Recall of Precautions Cognitive Comments Cognitive Assessment Comments Pt very groggy and drowsy and able to recall 2/3 back precautions. Pt needing vc for fww safety and hand placement prior to sitting and standing up at this time. OT- Vision and Hearing OT- Vision Assessment Visual Acuity Glasses For Reading Visual Attentiveness WFL Occular Pursuits WFL M7 OT- IP Mobility and Balance Start: 07/18/24 16:39 Freq: Status: Active Protocol: Document 07/18/24 16:40 [facility] (Rec: 07/18/24 16:54 [facility] [id number]) OT- Bed Mobility Assessment Supine to Sit Supine to Sit Assist Maximum Assistance,1 Person Assistance Sit to Supine Sit to Supine Assist Maximum Assistance,2 Person Assistance OT-Transfer Assessment Sit to and From Stand Sit to and from Stand Moderate Assistance,1 Person Assistance Transfers Transfer Ability Moderate Assistance,Maximum Assistance,2 Person Assistance Technique Transfer Destination Bed Transfer Technique Stand Step Pivot Devices Transfer Assistive Devices Gait Belt,Front Wheeled Walker Comments Mobility Comments MAXA X 1 for bed mobilty needs . MODA x 1 to stand to the FWW . As pt tired, pt needing assist to guide the FWW and for her balance and needing MOD/MAX X 2 at this time. OT- Balance Assessment Sitting Balance and Reactions Static Sitting Balance Ability Fair Dynamic Sitting Balance Ability Fair Standing Balance and Reactions Static Standing Balance Ability Fair Dynamic Standing Balance Ability Poor M8 OT- IP Objective Assessments Start: 07/18/24 16:39 Freq: Status: Active Protocol: Document 07/18/24 16:40 [facility] (Rec: 07/18/24 16:54 [facility] [id number]) OT Gross Range of Motion Upper Extremity Range of Motion Assessment Within Functional Limits OT Strength Upper Extremity Strength Assessment Within Functional Limits M9 OT- IP Assessment and Plan Start: 07/18/24 16:39 Freq: Status: Active Protocol: Document 07/18/24 16:40 [facility] (Rec: 07/18/24 16:54 [facility] [id number]) OT Summary Assessment and Plan Potential Rehabilitation Potential Good Analytic Complexity at Evaluation Low Summary OT Impairments Pain,Strength,Balance, Functional Cognition, Functional Mobility,Self- Feeding,Grooming,Dressing, Toileting,Bathing,Toilet Transfers,Shower Transfers, Activity Tolerance Progress Towards Goals Slow Progress due to Pain,Slow Progress due to Medical Issues,Slow Progress due to Activity Tolerance,Slow Progress due to Cognition Assessment Summary Pt low complexity and main barriers are pain,groggy, needing two person assist for mobility needs at this time. Pt also on 1/2 L on O2. Pending progress and caregiver training needs - hopefully pt to go home with 11/04 assist. However pt may need skilled rehab pending how pt progresses as pt just had sx today. Goals Self-Feeding Goal Independent Grooming Goal Independent Dressing Goal Minimal Assistance Toileting Goal Minimal Assistance Bathing Goal Minimal Assistance Toilet Transfer Goal Contact Guard Assistance Shower Transfer Goal Minimal Assistance Days to Meet Goals 7 Frequency of Treatment Other frequency 5x/week Treatment Plan OT Treatment Plan ADL Training,Functional Mobility,Patient/Family Education,Discharge Planning Discharge Recommendations OT Discharge Recommendations Home versus SNF, 11/04 assist pending progress Home Equipment Needs [facility] Transportation Needs at Discharge Wheelchair/Cabulance
[2024-07-18] MEDS: OXYCODONE IR 5 MG TABLET PO (18:56)
[2024-07-18] MEDS: DOCUSATE 100 MG CAPSULE PO (21:01)
[2024-07-18] MEDS: SENNOSIDES 8.6 MG TABLET 17.2 MG PO (21:02)
[2024-07-18] MEDS: PROPRANOLOL 10 MG TABLET PO (21:02)
[2024-07-19] VITALS (7 sets, daily range): BP systolic 110–138; BP diastolic 56–68; PULSE 76–92; RESP 16–20; TEMP 36.2–36.6; O2SAT 92–97
[2024-07-19] MEDS: OXYCODONE IR 10 MG TABLET PO ×3 (01:05→20:38)
[2024-07-19] MEDS: CEFAZOLIN 2 GM/100 ML PREMIX 100 ML IV (01:06)
[2024-07-19 04:44] LABS: Hematocrit 28.6 % (36-46)
[2024-07-19] MEDS: PANTOPRAZOLE DR 20 MG TABLET PO (05:10)
[2024-07-19] MEDS: HYDROMORPHONE 0.5 MG INJ IV (06:34)
--- NOTE | 2024-07-19 07:32 | P.PN_ITS ---
Subjective Subjective Interval history: Sade is a pleasant 78 year old female who is POD#1 s/p L3-4 Postero-lateral and posterior interbody fusion, L4-5 posterior non-segemental hardware removal, L4-5 exploration of fusion with revision laminectomy on the left by Dr. De Jesus. Pain was controlled w/ oral Oxycodone last night, this AM needed a dose of IV Dilaudid however to get pain under control, doing well now. Denies any weakness, numbness or tingling in either LE. Denies any shooting or radiating pain. Pain is localized to her low back. Patient lives at home w/ and daughter who are able to aid in her postop care. She admits she does have 14 steps into her house however and will need to work w/ PT on stairs prior to d/c. She still has her Lugo catheter in place. She was able to get up and ambulate some yesterday but has not been up today yet. Denies fever, chills, chest pain, SOB, nausea, vomiting. Exam Vital Signs (past 8 hours): - 07/19/24 00:00 07/19/24 01:00 07/19/24 04:00 Temperature 97.7 F 97.6 F Pulse Rate 92 H 90 Respiratory Rate 16 16 Blood Pressure 129/68 138/62 Pulse Oximetry 92 95 93 Oxygen Flow Rate 0 Oxygen Delivery Method Room Air Oxygen Flow Rate 0 Narrative Exam Narrative: Patient lying comfortably in bed during our interview today. No acute distress. AOx3. 5/5 strength with DF, PF, EHL bilaterally. Gross sensation intact throughout bilateral lower extremities. Calves soft and non-tender bilaterally. SCDs are on and functioning. Post-surgical dressing clean, dry and intact over the lumbar spine without drainage. Objective Labs 07/19/24 04:30 Labs: Laboratory Results - last 24 hr 07/19/24 04:30 Hgb 9.0 L Hct 28.6 L PFSH Medical History (Updated 07/03/24 @ 13:29 by Zeyad Cleary DO) HTN (hypertension) Tachycardia Shingles (~2022) Chronic back pain Cervical spine disease Hearing loss Thyroid nodule Anxiety Yeast infection Yeast infection of the vagina GERD (gastroesophageal reflux disease) Paroxysmal atrial fibrillation (~2014) Neuropathy DJD (degenerative joint disease) Arthritis Osteoarthritis Hypothyroidism Depression Laceration of scalp Surgical History (Updated 07/16/24 @ 14:55 by Tonie Montejo RN) History of total right hip arthroplasty (09/2023) 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) Anesthesia History of hip surgery (~2019) Hx of ovarian cystectomy Hx of cholecystectomy H/O: hysterectomy (~1979) S/P cervical spinal fusion (~2015) History of lumbar fusion (~2014) Family History (Updated 10/07/23 @ 20:56 by Giovanna Cardona) Father History of heart disease Mother No problems noted. Brother Diabetes mellitus Social History household members: spouse and children Smoking Status: Never smoker alcohol intake: current Assessment & Plan Post-op Postoperative Procedures: Procedures Operation Date: 07/18/24 07:45 Actual Procedure Side Surgeon p L3-4 TLIF L3-5 PSF with HWR-Robot Not Applicable Mateusz De Jesus MD Postoperative plan narrative: 1) Plan to discharge to home either today or tomorrow with family pending progress w/ PT. If patient ambulating well w/ PT today would like to have Lugo removed today. 2) Continue multimodal pain management. 3) Mechanical DVT prophylaxis. 4) Maintain BLT restrictions. 5) Keep dressing intact, clean, dry until 2 week postop appointment. No soaking the incision site in pools or tubs. No topical ointments or creams to the incision site. 6) Follow up at [facility] in 2 weeks for a postop appointment and wound check. All patient's questions were answered, they demonstrates understanding and are in agreement with the plan. Call our office if any questions or concerns arise. Quality VTE Deep Vein Thrombosis/Pulmonary Embolism Present on Admission: No
[2024-07-19] MEDS: polyethylene glycoL 3350 17 GM POWD.PACK PO (08:50)
[2024-07-19] MEDS: MELOXICAM 7.5 MG TABLET 15 MG PO (08:50)
[2024-07-19] MEDS: ACETAMINOPHEN 325 MG TABLET 650 MG PO ×2 (08:51→20:37)
[2024-07-19] MEDS: VENLAFAXINE ER 75 MG CAP 225 MG PO (08:51)
[2024-07-19] MEDS: GABAPENTIN 300 MG CAPSULE 600 MG PO ×2 (08:51→20:38)
[2024-07-19] MEDS: PROPRANOLOL 10 MG TABLET PO ×2 (08:51→20:39)
[2024-07-19] MEDS: OXYCODONE IR 5 MG TABLET PO (08:51)
[2024-07-19] MEDS: DOCUSATE 100 MG CAPSULE PO ×2 (08:51→20:38)
[2024-07-19] MEDS: lisinopriL 10 MG TABLET PO (08:52)
--- NOTE | 2024-07-19 11:16 | PT.IPTN ---
Current Diagnoses Spinal stenosis, lumbar region without neurogenic claudication (07/18/24) Arthrodesis status (07/18/24) Surgery Performed Operation Date: 07/18/24 07:45 Actual Procedures p L3-4 TLIF L3-5 PSF with HWR-Robot(Not Applicable) - Mateusz De Jesus MD Physical Therapy Treatment Note M2 PT-IP Current Condition Start: 07/18/24 17:32 Freq: NEEDED Status: Active Protocol: Document 07/18/24 15:10 AB (Rec: 07/18/24 17:51 AB [id number]) Physical Therapy Current Condition Current Condition Evaluation Date 07/18/24 Treatment Diagnosis s/p L3-4 TLIF; L4-5 lami; difficulty in walking Onset Date 07/18/24 M3 PT-IP Subjective Start: 07/18/24 17:32 Freq: NEEDED Status: Active Protocol: Document 07/19/24 12:12 ZF (Rec: 07/19/24 12:23 ZF [id number]) Subjective Physical Therapy Visit Type Type Treatment Note Visit Start Time 11:16 Visit Stop Time 11:36 Number of HAND SEWER Visits 1 Physical Therapy Visit Comments Patient Comments Pt resting in bed, agreeable to do PT. Therapy Pain Assessment Pain When Pain Assessed At Rest Pain Present Pain Present Pain Reported Location Back Intensity 3 Scale Used Numeric (0 - 10) Description Aching Pain Management Techniques Distraction,Modification of Treatment,Re-positioning, Timing of Activity with Medications M4 PT-IP Mobility and Gait Start: 07/18/24 17:32 Freq: NEEDED Status: Active Protocol: Document 07/19/24 12:12 ZF (Rec: 07/19/24 12:23 ZF [id number]) PT-Bed Mobility Assessment Rolling Type of Rolling Log Rolling Level of Assist Maximal Assistance Supine to Sit Supine to Sit Maximum Assistance,2 Person Assistance Scooting Scooting to Edge of Bed Moderate Assistance,Maximum Assistance PT-Transfer Assessment Sit to and From Stand Sit to and from Stand Minimal Assistance,1 Person Assistance Equipment Transfer Assistive Device Gait Belt,Front Wheeled Walker Orthotic/Prosthetic Devices or Brace: No Comments Mobility Comments Pt continues to be slow to respond to questions. Able to recall 3/3 spinal precautions with cueing. Log Rolling requires ModA/MaxA. Sidelying to Sitting EOB requires MaxAx2 . STS from EOB requires Ida. VC for proper handplacement to push up from bed. PT amb in room x15', initially Ida, as patient fatigues she requires ModAx2 to safely amb back to recliner. BP monitored with activity and remained WNL. Gait Assessment Gait Gait Assistance Required: Moderate Assistance,2 Person Assist Assistive Devices Assistive Device Gait Belt,Front Wheeled Walker Orthotic/Prosthetic Devices or Brace: No Gait Deviations General Gait Pattern Ataxic,Decreased Stride Length ,Decreased Feet Clearance,Step -to Gait Factors Limiting Gait Function Factors Limiting Gait Function Decreased Activity Tolerance, Decreased Strength,Difficulty Following Directions,Limited Range of Motion,Pain,Poor Balance,Poor Safety Awareness, Respiratory Distress PT-Balance Assessment Sitting Balance and Reactions Static Sitting Balance Ability Good Dynamic Sitting Balance Ability Fair Standing Balance and Reactions Static Standing Balance Ability Fair Dynamic Standing Balance Ability Poor Device Used FWW M5 PT-IP Objective Assessments Start: 07/18/24 17:32 Freq: NEEDED Status: Active Protocol: Document 07/18/24 15:10 AB (Rec: 07/18/24 17:51 AB [id number]) Orientation Orientation/Cognition Level of Alertness Alert Orientation Name,Situation Safety Awareness Decreased Safety Awareness Memory Description Short Term Impaired,Shelter Impaired Comments slow to respond to questions Gross Range of Motion Lower Extremity ROM Assessment Within Functional Limits Strength Lower Extremity Strength Assessment Within Functional Limits Sensation Assessment Sensation Gross Sensation WNL Muscle Tone Muscle Tone WNL Yes M6 PT-IP Treatment Start: 07/18/24 17:32 Freq: NEEDED Status: Active Protocol: Document 07/19/24 12:12 BURT (Rec: 07/19/24 12:23 ZF [id number]) Physical Therapy Treatment Education Education Provided Precautions,Safety M7 PT-IP Assessment and Plan Start: 07/18/24 17:32 Freq: NEEDED Status: Active Protocol: Document 07/19/24 12:12 ZF (Rec: 07/19/24 12:23 ZF [id number]) PT Summary Assessment and Plan Potential Rehabilitation Potential Fair Status of Condition at Evaluation Evolving Summary Impairments Pain,ROM,Strength,Balance, Coordination,Sensation,Tone, Cognition,Bed Mobility, Transfers,Gait,Activity Tolerance Assessment Summary Pt requires MaxA2 for bed mobility. Pt fatigues quickly and requires ModAx2 for amb for safety. Pt requires MaxA cueing for all mobility. Recommending SNF vs Home with assist at this time. Goals Bed Mobility Goal Standby Assistance Transfer Goal Standby Assistance,Front Wheeled Walker Gait Goal Standby Assistance,Front Wheel Walker Gait Distance 100 Other Goals improve bed mobility, transfers, ambulation using FWW ~ 200 ft mod I up/down 3 platform steps using FWW SBA up/down 12 steps R rail ascending sBA Days to Meet Goals 10 Frequency of Treatment Frequency Of Treatment Twice a Day Treatment Plan Physical Therapy Treatment Plan Bed Mobility Training,Transfer Training,Gait Training, Therapeutic Exercise,Balance Retraining,Post Op Education, Discharge Planning,Hot or Cold Pack,Neuromuscular Re-ed, Coordination Retraining,Manual Therapy Precautions Lumbar Precautions Log Roll,No Twisting,Limit Bending,Lifting Restriction of 10 lbs,Gait Belt above Incisional Area Discharge Recommendations PT Discharge Recommendations Home with / Assist Available,Home Health,SNF Rehab
--- NOTE | 2024-07-19 12:17 | OT.IP.TRT ---
Current Diagnoses Spinal stenosis, lumbar region without neurogenic claudication (07/18/24) Arthrodesis status (07/18/24) Surgery Performed Operation Date: 07/18/24 07:45 Actual Procedures p L3-4 TLIF L3-5 PSF with HWR-Robot(Not Applicable) - Mateusz De Jesus MD Occupational Therapy Treatment Note M2 OT-IP Current Condition Start: 07/18/24 16:39 Freq: Status: Active Protocol: Document 07/18/24 16:40 [facility] (Rec: 07/18/24 16:54 [facility] [id number]) Occupational Therapy Current Condition Current Condition Evaluation Date 07/18/24 Treatment Diagnosis S/P L3-4 TLIF, L4-5 fusion with revision laminectomy on the L Diagnosis Onset Date 07/18/24 Post Operative Precautions Lumbar Precautions Log Roll,No Twisting,Limit Bending,Lifting Restriction of 10 lbs,Gait Belt above Incisional Area M3 OT- IP Subjective and Pain Start: 07/18/24 16:39 Freq: Status: Active Protocol: Document 07/19/24 12:08 [facility] (Rec: 07/19/24 12:17 [facility] [id number]) OT- Subjective Occupational Therapy Visit Type Type Treatment Note Visit Start Time 11:10 Visit Stop Time 11:38 Occupational Therapy Visit Comments Patient Comments Pt agreed to get up. Pt's daughter tearful and wanting for pt to go to skilled rehab. Suggested to pt's nurse for pt to have a chair alarm as pt is a little impulsive. Nurse states pt has been able to appropriately call for assist. Patient/Caregiver Goals To go home, pt's daughter insistent on pt going to skilled rehab. OT Pain Assessment Pain When Pain Assessed During Mobility Pain Present Pain Present Pain Reported Location Back Intensity 3 Scale Used Numeric (0 - 10) M4 OT- IP ADL's Start: 07/18/24 16:39 Freq: Status: Active Protocol: Document 07/18/24 16:40 [facility] (Rec: 07/18/24 16:54 [facility] [id number]) OT [id number] Comments OT Self-Feeding Comments Not performed. OT ADL-Grooming Comments OT Grooming Comments Not performed. OT ADL-Oral Care Comments Oral Care Comments Not performed OT ADL-Dressing General Eval Lower Body Dressing Ability Maximum Assistance Areas Needing Assistance Socks OT ADL-Toileting General Evaluation Toileting Ability Total Assistance Areas Needing Assistance Empty Catheter or Colostomy OT ADL-Bathing Comments OT Bathing Comments Not performed. M5 OT- IP IADL's Start: 07/18/24 16:39 Freq: Status: Active Protocol: Document 07/18/24 16:40 [facility] (Rec: 07/18/24 16:54 [facility] [id number]) OT-Instrumental Activities of Daily Living Deficits IADL Deficits Identified Deficits Home Safety Awareness Home Safety Comments Pt is very groggy and will need assist for ADL and mobility needs at this time. Meal Preparation Meal Preparation Caregiver Provides Assist Housekeeping Worker Housekeeping Worker Caregiver Provides Assist M6 OT- IP Functional Cognition Start: 07/18/24 16:39 Freq: Status: Active Protocol: Document 07/19/24 12:08 [facility] (Rec: 07/19/24 12:17 [facility] [id number]) Cognitive Factors Limiting Selfcare Function Cognitive Ability Level of Alertness Alert Attention Span Ability Capable of Focused Attention, Capable of Sustained Attention Ability to Follow Commands Able to Follow One Step Commands with Increased Time, Able to Follow One Step Commands with Repetition Memory Description Short Term Impaired Safety Awareness Decreased Recall of Precautions,Decreased Ability to Apply Precautions Cognitive Comments Cognitive Assessment Comments Pt able to recall 1/3 back precautions and after education able to recall 3/3 with increased time. M7 OT- IP Mobility and Balance Start: 07/18/24 16:39 Freq: Status: Active Protocol: Document 07/19/24 12:08 [facility] (Rec: 07/19/24 12:17 [facility] [id number]) OT- Bed Mobility Assessment Supine to Sit Supine to Sit Assist Maximum Assistance,2 Person Assistance Scooting Scooting to Edge of Bed Maximum Assistance,1 Person Assistance OT-Transfer Assessment Sit to and From Stand Sit to and from Stand Minimal Assistance,1 Person Assistance Transfers Transfer Ability Moderate Assistance,2 Person Assistance Technique Transfer Destination Bed,Chair Transfer Technique Stand Step Pivot Devices Transfer Assistive Devices Gait Belt,Front Wheeled Walker Comments Mobility Comments MAXA X2 to get to the edge of the bed, MAXA X 1 to scoot forwards. KRISTEN to stand from bed. As pt tires needing mod A x2 with fww for assist, assist with balance, MAX vc for safety and to guide the FWW. OT- Balance Assessment Sitting Balance and Reactions Static Sitting Balance Ability Good Dynamic Sitting Balance Ability Fair Standing Balance and Reactions Static Standing Balance Ability Fair Dynamic Standing Balance Ability Poor M8 OT- IP Objective Assessments Start: 07/18/24 16:39 Freq: Status: Active Protocol: Document 07/18/24 16:40 [facility] (Rec: 07/18/24 16:54 [facility] [id number]) OT Gross Range of Motion Upper Extremity Range of Motion Assessment Within Functional Limits OT Strength Upper Extremity Strength Assessment Within Functional Limits M9 OT- IP Assessment and Plan Start: 07/18/24 16:39 Freq: Status: Active Protocol: Document 07/19/24 12:08 [facility] (Rec: 07/19/24 12:17 [facility] [id number]) OT Summary Assessment and Plan Potential Rehabilitation Potential Good Analytic Complexity at Evaluation Low Summary OT Impairments Pain,Strength,Balance, Functional Cognition, Functional Mobility,Self- Feeding,Grooming,Dressing, Toileting,Bathing,Toilet Transfers,Shower Transfers, Activity Tolerance Progress Towards Goals Slow Progress due to Pain,Slow Progress due to Medical Issues,Slow Progress due to Activity Tolerance,Slow Progress due to Cognition Assessment Summary Pt on RA now and 96%. Pt still needing extensive assist for bed mobility and assist as pt tires MODA X 2 with the FWW. Pt has difficulty to recall and follow her back precautions and will benefit from skilled rehab. Goals Self-Feeding Goal Independent Grooming Goal Independent Dressing Goal Minimal Assistance Toileting Goal Minimal Assistance Bathing Goal Minimal Assistance Toilet Transfer Goal Independent Shower Transfer Goal Minimal Assistance Days to Meet Goals 20 Frequency of Treatment Other frequency 5x/week Treatment Plan OT Treatment Plan ADL Training,Functional Mobility,Patient/Family Education,Discharge Planning Discharge Recommendations OT Discharge Recommendations SNF Rehab Home Equipment Needs [facility] Transportation Needs at Discharge Wheelchair/Cabulance
[2024-07-19] MEDS: MAGNESIUM HYDROXIDE 30 ML UDC PO (13:09)
--- NOTE | 2024-07-19 13:23 | PT.IPTN ---
Current Diagnoses Spinal stenosis, lumbar region without neurogenic claudication (07/18/24) Arthrodesis status (07/18/24) Surgery Performed Operation Date: 07/18/24 07:45 Actual Procedures p L3-4 TLIF L3-5 PSF with HWR-Robot(Not Applicable) - Mateusz De Jesus MD Physical Therapy Treatment Note M2 PT-IP Current Condition Start: 07/18/24 17:32 Freq: NEEDED Status: Active Protocol: Document 07/18/24 15:10 AB (Rec: 07/18/24 17:51 AB [id number]) Physical Therapy Current Condition Current Condition Evaluation Date 07/18/24 Treatment Diagnosis s/p L3-4 TLIF; L4-5 lami; difficulty in walking Onset Date 07/18/24 M3 PT-IP Subjective Start: 07/18/24 17:32 Freq: NEEDED Status: Active Protocol: Document 07/19/24 13:48 ZF (Rec: 07/19/24 13:56 ZF [id number]) Subjective Physical Therapy Visit Type Type Treatment Note Visit Start Time 01:23 Visit Stop Time 01:46 Number of PRESSED OR BLOWN GLASS WORKER Visits 2 Physical Therapy Visit Comments Patient Comments Pt resting in bed, agreeable to therapy. Therapy Pain Assessment Pain When Pain Assessed At Rest Pain Present Pain Present Denied Pain Location Back Intensity 0 Scale Used Numeric (0 - 10) Description Aching Pain Management Techniques Distraction,Modification of Treatment,Re-positioning, Timing of Activity with Medications M4 PT-IP Mobility and Gait Start: 07/18/24 17:32 Freq: NEEDED Status: Active Protocol: Document 07/19/24 13:48 ZF (Rec: 07/19/24 13:56 ZF [id number]) PT-Bed Mobility Assessment Rolling Type of Rolling Log Rolling Level of Assist Moderate Assistance,Maximal Assistance Supine to Sit Supine to Sit Maximum Assistance,1 Person Assistance Sit to Supine Sit to Supine Maximum Assistance Scooting Scooting to Edge of Bed Maximum Assistance PT-Transfer Assessment Comments Mobility Comments Pt agreeable to therapy. Log Roll from supine>Sidelying, ModA w/pt using bedrail. Pushing up into sitting requires MaxA. Pt tolerates ~8 mins of sitting EOB. BP monitored: 89/42mmHg. Pt reports feeling a little dizzy . Returned pt to supine. Sitting EOB to Supine requires MaxA. Pt completes ankle pumps and heel slides x10 reps . Vitals monitored again: 87/ 48mmHg. Gait Assessment Comments Gait Comments Did not amb this PM due to low BP. PT-Balance Assessment Sitting Balance and Reactions Static Sitting Balance Ability Good Dynamic Sitting Balance Ability Fair M5 PT-IP Objective Assessments Start: 07/18/24 17:32 Freq: NEEDED Status: Active Protocol: Document 07/18/24 15:10 AB (Rec: 07/18/24 17:51 AB [id number]) Orientation Orientation/Cognition Level of Alertness Alert Orientation Name,Situation Safety Awareness Decreased Safety Awareness Memory Description Short Term Impaired,Fdc Impaired Comments slow to respond to questions Gross Range of Motion Lower Extremity ROM Assessment Within Functional Limits Strength Lower Extremity Strength Assessment Within Functional Limits Sensation Assessment Sensation Gross Sensation WNL Muscle Tone Muscle Tone WNL Yes M6 PT-IP Treatment Start: 07/18/24 17:32 Freq: NEEDED Status: Active Protocol: Document 07/19/24 13:48 ZF (Rec: 07/19/24 13:56 ZF [id number]) Physical Therapy Treatment Exercises Exercises Ankle Pumps,Heel Slides Education Education Provided Precautions,Safety M7 PT-IP Assessment and Plan Start: 07/18/24 17:32 Freq: NEEDED Status: Active Protocol: Document 07/19/24 13:48 ZF (Rec: 07/19/24 13:56 ZF [id number]) PT Summary Assessment and Plan Potential Rehabilitation Potential Fair Status of Condition at Evaluation Evolving Summary Impairments Pain,ROM,Strength,Balance, Coordination,Sensation,Tone, Cognition,Bed Mobility, Transfers,Gait,Activity Tolerance Assessment Summary Pt requires MaxA for bed mobility. Tolerates ~8 mins sitting EOB. BP: 89/42mmHg. Pt returned to supine. Goals Bed Mobility Goal Standby Assistance Transfer Goal Standby Assistance,Front Wheeled Walker Gait Goal Standby Assistance,Front Wheel Walker Gait Distance 100 Other Goals improve bed mobility, transfers, ambulation using FWW ~ 200 ft mod I up/down 3 platform steps using FWW SBA up/down 12 steps R rail ascending sBA Days to Meet Goals 10 Frequency of Treatment Frequency Of Treatment Twice a Day Treatment Plan Physical Therapy Treatment Plan Bed Mobility Training,Transfer Training,Gait Training, Therapeutic Exercise,Balance Retraining,Post Op Education, Discharge Planning,Hot or Cold Pack,Neuromuscular Re-ed, Coordination Retraining,Manual Therapy Precautions Lumbar Precautions Log Roll,No Twisting,Limit Bending,Lifting Restriction of 10 lbs,Gait Belt above Incisional Area Recommendations To Nursing Amount of Assist Needed 2 Person Assist Discharge Recommendations PT Discharge Recommendations Home with / Assist Available,Home Health,SNF Rehab Transportation Needs at Discharge Private Vehicle,Wheelchair/ Cabulance
--- NOTE | 2024-07-19 18:22 | EKG_ITS ---
[address] [address] Test Date: 2024-07-19 Pat Name: Jessica Garrison Department: [facility] Room: 217 Gender: Female Hooker Inspector: PARMJIT : 1945 Requested By: Order Number: [id number] Reading MD: Deepak Wlofe Measurements Intervals [place] Rate: 82 P: 41 WA: 158 QRS: 11 QRSD: 82 T: 23 QT: 352 QTc: 411 Interpretive Statements Normal sinus rhythm Electronically Signed On 07-24-2024 18:48:25 PST by Deepak Wolfe
--- NOTE | 2024-07-19 18:23 | DI.RAD.S_ITS ---
PROCEDURE: XR CHEST 1V INDICATIONS: chest pain/ Dyspnea TECHNIQUE: One view of the chest was acquired. COMPARISON: [facility], CR, XR CHEST 1V, 07/10/2021, 15:35. [facility], CR, XR CHEST 2V, 12/08/2018, 14:24. [facility], CR, XR CHEST 1V, 02/22/2018, 10:50. FINDINGS: Surgical changes and devices: Cervical fusion hardware. Lungs and pleura: Lungs are clear. No pleural effusions or pneumothorax. Mediastinum: Mediastinal contours appear normal. Heart size is normal. Bones and chest wall: No suspicious bony lesions. Overlying soft tissues appear unremarkable. Mildly distended stomach. IMPRESSION: No acute cardiothoracic process. Dictated by: Dale Garcia M.D. on 07/19/2024 at 19:06 Approved by: Dale Garcia M.D. on 07/19/2024 at 19:07
[2024-07-19] MEDS: SENNOSIDES 8.6 MG TABLET 17.2 MG PO (20:38)
[2024-07-19] MEDS: LACTATED RINGERS 1,000 ML 125 ML IV (22:49)
[2024-07-20] VITALS (7 sets, daily range): BP systolic 108–121; BP diastolic 44–55; PULSE 68–83; RESP 16–18; TEMP 36.1–37.3; O2SAT 92–97
[2024-07-20] MEDS: PANTOPRAZOLE DR 20 MG TABLET PO (05:59)
[2024-07-20] MEDS: ACETAMINOPHEN 325 MG TABLET 650 MG PO ×2 (06:23→13:53)
[2024-07-20] MEDS: OXYCODONE IR 10 MG TABLET PO ×2 (06:24→20:43)
--- NOTE | 2024-07-20 07:27 | PM.PNPO.1 ---
Subjective Subjective Date Patient Seen: 07/20/24 Time Patient Seen: 07:27 Interval history: Pt lying in bed on her side. C/o low back pain, denies leg pain. Lugo was removed yesterday, per RN, pt has needed to be straight-cathed since removal. Pt states she has no pain or burning, just inability to void. Says she thinks she has had bladder infections in the past. Exam Vital Signs (past 8 hours): - 07/20/24 03:33 Temperature 97.3 F L Pulse Rate 81 Respiratory Rate 16 Blood Pressure 108/55 L Pulse Oximetry 94 Oxygen Flow Rate 2 Oxygen Delivery Method Nasal Cannula Oxygen Flow Rate 2 Narrative Exam Narrative: 4/5 hip flexors, quadriceps, hamstrings; 5/5 PF, DF, EHL bilaterally. Sensation to light touch intact throughout BLE, calves soft and compressible. SCDs on and functioning. Low back dressing placed intraoperatively is CDI. 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 Brother Diabetes mellitus Social History household members: spouse and children Smoking Status: Never smoker alcohol intake: current Assessment & Plan Post-op Assessment and plan (1) S/P lumbar fusion: Assessment and Plan narrative: Pt lives in a 2-floor house and while she would prefer to not go to rehab, we agreed that it is likely the best choice for her given her living situation and slow progress w/ PT. Will add methocarbamol to help w/ pain control. Continue work w/ PT. SCDs for VTE prophylaxis. (2) Acute urinary retention: Assessment and Plan narrative: Will add tamsulosin. UA at next void to r/o UTI. Postoperative Procedures: Procedures Operation Date: 07/18/24 07:45 Actual Procedure Side Surgeon p L3-4 TLIF L3-5 PSF with HWR-Robot Not Applicable Mateusz De Jesus MD Postoperative day: 2 Quality VTE Deep Vein Thrombosis/Pulmonary Embolism Present on Admission: No
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
[2024-07-20] MEDS: polyethylene glycoL 3350 17 GM POWD.PACK PO (08:38)
[2024-07-20] MEDS: VENLAFAXINE ER 75 MG CAP 225 MG PO (08:38)
[2024-07-20] MEDS: TAMSULOSIN 0.4 MG CAPSULE PO (08:39)
[2024-07-20] MEDS: MELOXICAM 7.5 MG TABLET 15 MG PO (08:39)
[2024-07-20] MEDS: DOCUSATE 100 MG CAPSULE PO ×2 (08:39→20:41)
--- NOTE | 2024-07-20 09:06 | PT.IPTN ---
Current Diagnoses Spinal stenosis, lumbar region without neurogenic claudication (07/18/24) Other retention of urine (07/18/24) Arthrodesis status (07/18/24) Surgery Performed Operation Date: 07/18/24 07:45 Actual Procedures p L3-4 TLIF L3-5 PSF with HWR-Robot(Not Applicable) - Mateusz De Jesus MD Physical Therapy Treatment Note M2 PT-IP Current Condition Start: 07/18/24 17:32 Freq: NEEDED Status: Active Protocol: Document 07/18/24 15:10 AB (Rec: 07/18/24 17:51 AB [id number]) Physical Therapy Current Condition Current Condition Evaluation Date 07/18/24 Treatment Diagnosis s/p L3-4 TLIF; L4-5 lami; difficulty in walking Onset Date 07/18/24 M3 PT-IP Subjective Start: 07/18/24 17:32 Freq: NEEDED Status: Active Protocol: Document 07/20/24 09:37 TS (Rec: 07/20/24 09:47 TS [id number]) Subjective Physical Therapy Visit Type Type Treatment Note Visit Start Time 09:06 Visit Stop Time 09:30 Number of COMBINATION MACHINE TENDER Visits 3 Physical Therapy Visit Comments Patient Comments Pt found resting in bed, she is hypoverbal and appears slightly confused this morning . She is agreeable to PT. Therapy Pain Assessment Pain When Pain Assessed At Rest Pain Present Pain Present Denied Pain M4 PT-IP Mobility and Gait Start: 07/18/24 17:32 Freq: NEEDED Status: Active Protocol: Document 07/20/24 09:37 TS (Rec: 07/20/24 09:47 TS [id number]) PT-Bed Mobility Assessment Rolling Type of Rolling Log Rolling Level of Assist Maximal Assistance,1 Person Assistance Supine to Sit Supine to Sit Maximum Assistance,1 Person Assistance PT-Transfer Assessment Sit to and From Stand Sit to and from Stand Minimal Assistance,1 Person Assistance Equipment Transfer Assistive Device Gait Belt,Front Wheeled Walker Orthotic/Prosthetic Devices or Brace: No Transfers Transfer Destination Chair Transfer Technique Stand Pivot Transfer Ability Level of Assist Moderate Assistance,1 Person Assistance Comments Mobility Comments Pt recalls 1/3 spinal precautions(no twisiting), pt recalls 2/3 at end of session. Logroll to L side MaxA with cues for handrails. Supine to sit MaxA for uprighting trunk. she scoots to EOB MaxA with nam of pad. She has difficulty with sitting balance initially requiring ModA, progressed to SBA. BP in sitting 100/56, pt c/o some lightheadedness. STS with FWW Ida. She performs stand pivot to chair ModA with cues for sequencing. Pt was left in the chair, chair alarm on. Gait Assessment Gait Gait Assistance Required: Moderate Assistance,1 Person Assist Distance (Feet) 2 Assistive Devices Assistive Device Gait Belt,Front Wheeled Walker Orthotic/Prosthetic Devices or Brace: No Gait Deviations General Gait Pattern Ataxic,Decreased Stride Length ,Decreased Feet Clearance,Step -to Gait Factors Limiting Gait Function Factors Limiting Gait Function Decreased Activity Tolerance, Decreased Strength,Difficulty Following Directions,Limited Range of Motion,Pain,Poor Balance,Poor Safety Awareness, Respiratory Distress PT-Balance Assessment Sitting Balance and Reactions Static Sitting Balance Ability Good Dynamic Sitting Balance Ability Fair Standing Balance and Reactions Static Standing Balance Ability Fair Dynamic Standing Balance Ability Fair Device Used FWW M5 PT-IP Objective Assessments Start: 07/18/24 17:32 Freq: NEEDED Status: Active Protocol: Document 07/18/24 15:10 AB (Rec: 07/18/24 17:51 AB [id number]) Orientation Orientation/Cognition Level of Alertness Alert Orientation Name,Situation Safety Awareness Decreased Safety Awareness Memory Description Short Term Impaired,Snf Impaired Comments slow to respond to questions Gross Range of Motion Lower Extremity ROM Assessment Within Functional Limits Strength Lower Extremity Strength Assessment Within Functional Limits Sensation Assessment Sensation Gross Sensation WNL Muscle Tone Muscle Tone WNL Yes M6 PT-IP Treatment Start: 07/18/24 17:32 Freq: NEEDED Status: Active Protocol: Document 07/20/24 09:37 TS (Rec: 07/20/24 09:47 [id number]) Physical Therapy Treatment Education Education Provided Precautions,Safety M7 PT-IP Assessment and Plan Start: 07/18/24 17:32 Freq: NEEDED Status: Active Protocol: Document 07/20/24 09:37 TS (Rec: 07/20/24 09:47 [id number]) PT Summary Assessment and Plan Potential Rehabilitation Potential Fair Summary Impairments Pain,ROM,Strength,Balance, Coordination,Sensation,Tone, Cognition,Bed Mobility, Transfers,Gait,Activity Tolerance Progress Towards Goals Slow Progress due to Activity Tolerance Assessment Summary Pt continues to make slow progress with her mobility. She is MaxA for bed mobility with cues for precautions. She performed stand pivot to the chair ModA. She is having some difficulty following instructions this morning, appears to be slightly confused and lethargic. She has difficulty recalling precautions. PT is recommending SNF at this time. If pt improves she could progress to home. Goals Bed Mobility Goal Standby Assistance Transfer Goal Standby Assistance,Front Wheeled Walker Gait Goal Standby Assistance,Front Wheel Walker Gait Distance 100 Other Goals improve bed mobility, transfers, ambulation using FWW ~ 200 ft mod I up/down 3 platform steps using FWW SBA up/down 12 steps R rail ascending sBA Days to Meet Goals 10 Frequency of Treatment Frequency Of Treatment Twice a Day Treatment Plan Physical Therapy Treatment Plan Bed Mobility Training,Transfer Training,Gait Training, Therapeutic Exercise,Balance Retraining,Post Op Education, Discharge Planning,Hot or Cold Pack,Neuromuscular Re-ed, Coordination Retraining,Manual Therapy Precautions Lumbar Precautions Log Roll,No Twisting,Limit Bending,Lifting Restriction of 10 lbs,Gait Belt above Incisional Area Recommendations To Nursing Amount of Assist Needed 2 Person Assist Discharge Recommendations PT Discharge Recommendations SNF Rehab Transportation Needs at Discharge Wheelchair/Cabulance
--- NOTE | 2024-07-20 13:06 | CM.DPC ---
DCP Continued: Reviewed EMR and team rounds for pt?s medical status. Pt accepted at [facility] on Tuesday, 07/22 - time pending. PASRR completed, hospital exempt and will need MD signature. Plan: Anticipating discharge on Tuesday, 07/22 to [facility], time pending. CM Team will continue to follow for coordination of discharge plans. RAGHAV Harden
[2024-07-20 13:20] LABS: Appearance Urine UA CLEAR; Bilirubin Urine UA NEGATIVE (NEGATIVE); Color Urine UA YELLOW; Glucose Urine UA NEGATIVE (Negative); Ketones Urine UA TRACE (NEGATIVE); Leukocyte Esterase Urine UA NEGATIVE (NEGATIVE); Nitrite Urine UA NEGATIVE (Negative); Occult Blood Urine UA NEGATIVE (Negative); Protein Urine UA NEGATIVE (Negative); Specific Gravity Urine UA 1.025 (1.000-1.035); Urine Volume 10mL (spun); Urobilinogen Urine UA 0.2 E.U./dL (0.2); pH Urine UA 5.5 (4.5-8.0)
[2024-07-20 13:22] LABS: Bacteria Urine None Seen; Culture Indicated Urine Cult Not Indicated; RBC Urine 0-1/HPF (0-5/HPF); Squamous Epithelial Cell Urine None Seen (0-5/HPF); WBC Urine 0-1/HPF (0-5/HPF)
[2024-07-20] MEDS: MAGNESIUM HYDROXIDE 30 ML UDC PO (13:53)
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
[2024-07-20] MEDS: GABAPENTIN 300 MG CAPSULE 600 MG PO ×2 (15:06→20:39)
[2024-07-20] MEDS: OXYCODONE IR 5 MG TABLET PO (15:06)
[2024-07-20] MEDS: SENNOSIDES 8.6 MG TABLET 17.2 MG PO (20:39)
[2024-07-20] MEDS: methocarbamoL 500 MG TABLET PO (20:39)
[2024-07-20] MEDS: LACTATED RINGERS 1,000 ML 125 ML IV (22:20)
[2024-07-21] VITALS (7 sets, daily range): BP systolic 110–136; BP diastolic 49–75; PULSE 70–94; RESP 15–20; TEMP 35.9–36.4; O2SAT 93–98
[2024-07-21] MEDS: QUETIAPINE 25 MG TABLET 12.5 MG PO (00:28)
[2024-07-21] MEDS: OXYCODONE IR 5 MG TABLET PO ×7 (00:28→23:35)
[2024-07-21] MEDS: ACETAMINOPHEN 325 MG TABLET 650 MG PO ×3 (01:32→17:04)
[2024-07-21] MEDS: OXYCODONE IR 10 MG TABLET PO ×3 (02:03→11:19)
[2024-07-21] MEDS: PANTOPRAZOLE DR 20 MG TABLET PO (05:15)
[2024-07-21] MEDS: LACTATED RINGERS 1,000 ML 125 ML IV ×2 (06:18→20:41)
[2024-07-21] MEDS: DOCUSATE 100 MG CAPSULE PO (08:42)
[2024-07-21] MEDS: GABAPENTIN 300 MG CAPSULE 600 MG PO ×3 (08:43→20:40)
[2024-07-21] MEDS: TAMSULOSIN 0.4 MG CAPSULE PO (08:43)
[2024-07-21] MEDS: MELOXICAM 7.5 MG TABLET 15 MG PO (08:45)
[2024-07-21] MEDS: VENLAFAXINE ER 75 MG CAP 225 MG PO (08:45)
--- NOTE | 2024-07-21 09:05 | PT.IPTN ---
Current Diagnoses Spinal stenosis, lumbar region without neurogenic claudication (07/18/24) Other retention of urine (07/18/24) Arthrodesis status (07/18/24) Surgery Performed Operation Date: 07/18/24 07:45 Actual Procedures p L3-4 TLIF L3-5 PSF with HWR-Robot(Not Applicable) - Mateusz De Jesus MD Physical Therapy Treatment Note M2 PT-IP Current Condition Start: 07/18/24 17:32 Freq: NEEDED Status: Active Protocol: Document 07/18/24 15:10 AB (Rec: 07/18/24 17:51 AB [id number]) Physical Therapy Current Condition Current Condition Evaluation Date 07/18/24 Treatment Diagnosis s/p L3-4 TLIF; L4-5 lami; difficulty in walking Onset Date 07/18/24 M3 PT-IP Subjective Start: 07/18/24 17:32 Freq: NEEDED Status: Active Protocol: Document 07/21/24 09:32 TS (Rec: 07/21/24 09:41 TS [id number]) Subjective Physical Therapy Visit Type Type Treatment Note Visit Start Time 09:05 Visit Stop Time 09:30 Number of MONUMENT INSTALLER Visits 1 Physical Therapy Visit Comments Patient Comments Pt reports having a hard night due to pain. She appears somewhat confused. She is agreeable to PT. Therapy Pain Assessment Pain When Pain Assessed At Rest Pain Present Pain Present Pain Reported M4 PT-IP Mobility and Gait Start: 07/18/24 17:32 Freq: NEEDED Status: Active Protocol: Document 07/21/24 09:32 TS (Rec: 07/21/24 09:41 TS [id number]) PT-Bed Mobility Assessment Rolling Type of Rolling Log Rolling Level of Assist Maximal Assistance Supine to Sit Supine to Sit Maximum Assistance,1 Person Assistance,Head of Bed Elevated,Bedrails PT-Transfer Assessment Sit to and From Stand Sit to and from Stand Maximum Assistance,1 Person Assistance,Use of Upper Extremities Equipment Transfer Assistive Device Gait Belt,Front Wheeled Walker Orthotic/Prosthetic Devices or Brace: No Transfers Transfer Destination Chair,Bedside Commode Transfer Technique Stand Step Pivot Transfer Ability Level of Assist Maximum Assistance,1 Person Assistance,Use of Upper Extremities Comments Mobility Comments Pt recalls 1/3 spinal precautions(no bending). Logroll to R side MaxA with max cues for sequencing. Supine to sit MaxA for uprighting trunk, cues provided for LE's over EOB. STS with FWW MaxA, pt is slow to stand. She transfers to commode MaxA with max cues, pt has some difficulty following instructions, requires repeated cues for sitting on commode. STS from commode MaxA , pt transfers to chair MaxA with max cues. Nursing in the room assisting pt. Gait Assessment Gait Gait Assistance Required: Maximum Assistance,1 Person Assist Distance (Feet) 6 Able to Maintain Weight Bearing Status Yes During Gait Assistive Devices Assistive Device Gait Belt,Front Wheeled Walker Orthotic/Prosthetic Devices or Brace: No Gait Deviations General Gait Pattern Antalgic,Decreased Stride Length,Decreased Feet Clearance,Step-to Gait Factors Limiting Gait Function Factors Limiting Gait Function Decreased Activity Tolerance, Decreased Strength,Difficulty Following Directions,Limited Range of Motion,Pain,Poor Balance,Poor Safety Awareness PT-Balance Assessment Sitting Balance and Reactions Static Sitting Balance Ability Fair Dynamic Sitting Balance Ability Fair Standing Balance and Reactions Static Standing Balance Ability Fair Dynamic Standing Balance Ability Fair Device Used FWW M5 PT-IP Objective Assessments Start: 07/18/24 17:32 Freq: NEEDED Status: Active Protocol: Document 07/18/24 15:10 AB (Rec: 07/18/24 17:51 AB [id number]) Orientation Orientation/Cognition Level of Alertness Alert Orientation Name,Situation Safety Awareness Decreased Safety Awareness Memory Description Short Term Impaired,Bottle Feeder Impaired Comments slow to respond to questions Gross Range of Motion Lower Extremity ROM Assessment Within Functional Limits Strength Lower Extremity Strength Assessment Within Functional Limits Sensation Assessment Sensation Gross Sensation WNL Muscle Tone Muscle Tone WNL Yes M6 PT-IP Treatment Start: 07/18/24 17:32 Freq: NEEDED Status: Active Protocol: Document 07/21/24 09:32 TS (Rec: 07/21/24 09:41 [id number]) Physical Therapy Treatment Education Education Provided Precautions,Safety M7 PT-IP Assessment and Plan Start: 07/18/24 17:32 Freq: NEEDED Status: Active Protocol: Document 07/21/24 09:32 TS (Rec: 07/21/24 09:41 [id number]) PT Summary Assessment and Plan Potential Rehabilitation Potential Fair Summary Impairments Pain,ROM,Strength,Balance, Coordination,Sensation,Tone, Cognition,Bed Mobility, Transfers,Gait,Activity Tolerance Progress Towards Goals Slow Progress due to Pain,Slow Progress due to Activity Tolerance Assessment Summary Pt continues to make slow progress with her mobility. She requires MaxA for all bed mobility with cues for safety. She performs stand step pivot transfers x2 with FWW. She has some difficulty following instructions and requires repeated cues. She lacks good safety awareness with her mobility. PT continues to recommend SNF. Goals Bed Mobility Goal Standby Assistance Transfer Goal Standby Assistance,Front Wheeled Walker Gait Goal Standby Assistance,Front Wheel Walker Gait Distance 100 Other Goals improve bed mobility, transfers, ambulation using FWW ~ 200 ft mod I up/down 3 platform steps using FWW SBA up/down 12 steps R rail ascending sBA Days to Meet Goals 10 Frequency of Treatment Frequency Of Treatment Twice a Day Treatment Plan Physical Therapy Treatment Plan Bed Mobility Training,Transfer Training,Gait Training, Therapeutic Exercise,Balance Retraining,Post Op Education, Discharge Planning,Hot or Cold Pack,Neuromuscular Re-ed, Coordination Retraining,Manual Therapy Precautions Lumbar Precautions Log Roll,No Twisting,Limit Bending,Lifting Restriction of 10 lbs,Gait Belt above Incisional Area Recommendations To Nursing Amount of Assist Needed 2 Person Assist Discharge Recommendations PT Discharge Recommendations SNF Rehab Transportation Needs at Discharge Wheelchair/Cabulance
[2024-07-21] MEDS: methocarbamoL 500 MG TABLET PO ×2 (11:07→17:05)
--- NOTE | 2024-07-21 11:58 | PM.PNPO.1 ---
Subjective Subjective Date Patient Seen: 07/21/24 Time Patient Seen: 11:58 Interval history: Pt is sitting up in bed, watching TV, becomes tearful when I ask how she is doing. She says that the nurses think she is demented and because of that theyy are not giving her pain medication. She says they won't let her speak to her daughter, Vee. I helped the pt call her daughter from her room phone while I was in the room - the pt knows her number by heart. Vee told me she had just spoke to her mother at 0100 and she was on her way in to see her. Pt has a flat affect and is slow to respond to questions at baseline; this should not be mistaken for dementia. However, on review of her chart and speaking with her daughter, she does seem to be having some delusional thinking. She was having difficulty voiding independently yesterday, so I started tamsulosin and ordered a UA. UA was negative for signs of UTI, and it looks like the on-call surgeon ordered replacement of her Lugo catheter last night. Exam Vital Signs (past 8 hours): - 07/21/24 08:00 07/21/24 08:44 07/21/24 09:18 Temperature 96.6 F L Pulse Rate 74 70 Respiratory Rate 16 Blood Pressure 110/51 L 110/51 L Pulse Oximetry 98 98 Oxygen Delivery Method Nasal Cannula Oxygen Flow Rate 1 1 Fraction of Inspired Oxygen 24 Fraction of Inspired Oxygen 24 SaO2/FiO2 Ratio 408 Oxygen Delivery Method Nasal Cannula Oxygen Flow Rate 1 Narrative Exam Narrative: 5/5 strength in hip flexors, quadriceps, hamstrings, PF, DF, EHL bilaterally. Sensation to light touch intact throughout BLE. Calves soft and compressible; SCDs were not on at my visit, and I replaced them and turned them back on. Objective Labs 07/19/24 04:30 Labs: Laboratory Results - last 24 hr 07/20/24 13:15 Urine Color Yellow Urine Appearance Clear Urine pH 5.5 Ur Specific [place] 1.025 Urine Protein Negative Urine Glucose (UA) Negative Urine Ketones Trace H Urine Occult Blood Negative Urine Nitrate Negative Urine Bilirubin Negative Urine Urobilinogen 0.2 Ur Leukocyte Esterase Negative Urine RBC 0-1/hpf Urine WBC 0-1/hpf Ur Squamous Epith Cells None seen Urine Bacteria None seen Ur Culture Indicated? Cult not indicated Vol Urine Centrifuged 10ml (spun) PFSH Medical History (Updated 07/21/24 @ 12:03 by Korin Smith PA-C) HTN (hypertension) Tachycardia Shingles (~2022) Chronic back pain Cervical spine disease Hearing loss Thyroid nodule Anxiety Yeast infection Yeast infection of the vagina GERD (gastroesophageal reflux disease) Paroxysmal atrial fibrillation (~2014) Neuropathy DJD (degenerative joint disease) Arthritis Osteoarthritis Hypothyroidism Depression Laceration of scalp Surgical History (Updated 07/20/24 @ 07:29 by Korin Smith PA-C) History of total right hip arthroplasty (09/2023) 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) Anesthesia History of hip surgery (~2019) Hx of ovarian cystectomy Hx of cholecystectomy H/O: hysterectomy (~1979) S/P cervical spinal fusion (~2015) History of lumbar fusion (~2014) Family History (Updated 10/07/23 @ 20:56 by Giovanna Cardona) Father History of heart disease Mother No problems noted. Brother Diabetes mellitus Social History household members: spouse and children Smoking Status: Never smoker alcohol intake: current Assessment & Plan Post-op Assessment and plan (1) S/P lumbar fusion: Assessment and Plan narrative: Per CM notes, pt is set up for transfer to [facility] tomorrow. I discussed removing her catheter with her, and she does not want to have it removed at this time. I will print rxs and med list and sign PASRR form today in anticipation of discharge tomorrow; will continue tamsulosin for a week. I will leave discharge summary for rounding surgeon tomorrow as Lugo status remains unclear. (2) Acute urinary retention: Assessment and Plan narrative: As above. (3) Confusion: Assessment and Plan narrative: In review of MAR, it is likely that pt is actually receiving too much pain medication, which may be contributing to her confusion. I will d/c her oxycodone 10mg and make her APAP scheduled. Will continue oxycodone 5mg and methocarbamol. Postoperative Procedures: Procedures Operation Date: 07/18/24 07:45 Actual Procedure Side Surgeon p L3-4 TLIF L3-5 PSF with HWR-Robot Not Applicable Mateusz De Jesus MD Postoperative day: 3 Quality VTE Deep Vein Thrombosis/Pulmonary Embolism Present on Admission: No
--- NOTE | 2024-07-21 13:56 | CM.DPC ---
DCP SNF Planning: Per Ortho PA, pt having some pain and urinary retention but anticipating discharge to SNF tomorrow Sun and finalized med list and printed scripts and completed orders but discharge summary to be completed tomorrow Sun by Ortho Surgeon rounding. SIL called [facility] admissions February and confirmed they still have pt on their schedule to accept tomorrow Sun and likely transport around 1100 or 1130 and requested SW not to fax d/c packet yet as they have two admissions today already and do not want to get the paperwork confused. SIL met bedside with pt and explained role and updated on plan of discharge tomorrow and pt remains agreeable and confirmed that SW could update her Dtr on d/c plan for tomorrow via phone per Dtr request. SIL called Dtr Vee and left with update on discharge plan tomorrow. Updated RN, auto tune up mechanic, and MARKETING COMMUNICATIONS ASSOCIATE on plan of discharge to [facility] tomorrow Sun. Placed copy of signed med list and scripts with PASRR to fax to [facility] tomorrow when discharge summary completed. Stephany Monge MSW
--- NOTE | 2024-07-21 14:50 | PT.IPTN ---
Current Diagnoses Spinal stenosis, lumbar region without neurogenic claudication (07/18/24) Other retention of urine (07/18/24) Disorientation, unspecified (07/18/24) Arthrodesis status (07/18/24) Surgery Performed Operation Date: 07/18/24 07:45 Actual Procedures p L3-4 TLIF L3-5 PSF with HWR-Robot(Not Applicable) - Mateusz De Jesus MD Physical Therapy Treatment Note M2 PT-IP Current Condition Start: 07/18/24 17:32 Freq: NEEDED Status: Active Protocol: Document 07/18/24 15:10 AB (Rec: 07/18/24 17:51 AB [id number]) Physical Therapy Current Condition Current Condition Evaluation Date 07/18/24 Treatment Diagnosis s/p L3-4 TLIF; L4-5 lami; difficulty in walking Onset Date 07/18/24 M3 PT-IP Subjective Start: 07/18/24 17:32 Freq: NEEDED Status: Active Protocol: Document 07/21/24 15:15 TS (Rec: 07/21/24 15:22 TS [id number]) Subjective Physical Therapy Visit Type Type Treatment Note Visit Start Time 14:50 Visit Stop Time 15:13 Number of LACING OPERATOR Visits 2 Physical Therapy Visit Comments Patient Comments Pt found resting in bed, she is agreeable to PT. Therapy Pain Assessment Pain When Pain Assessed At Rest Pain Present Pain Present Pain Reported Location Back Intensity 5 Description Acute,Sharp Pain Management Techniques Apply Cold,Distraction, Modification of Treatment,Re- positioning,Timing of Activity with Medications M4 PT-IP Mobility and Gait Start: 07/18/24 17:32 Freq: NEEDED Status: Active Protocol: Document 07/21/24 15:15 TS (Rec: 07/21/24 15:22 TS [id number]) PT-Bed Mobility Assessment Rolling Type of Rolling Log Rolling Level of Assist Maximal Assistance Supine to Sit Supine to Sit Maximum Assistance,1 Person Assistance,Head of Bed Elevated,Bedrails Sit to Supine Sit to Supine Maximum Assistance,1 Person Assistance Scooting Scooting to Edge of Bed Maximum Assistance Scooting Up and Down in Bed Maximum Assistance PT-Transfer Assessment Sit to and From Stand Sit to and from Stand Moderate Assistance,1 Person Assistance,Use of Upper Extremities Equipment Transfer Assistive Device Gait Belt,Front Wheeled Walker Orthotic/Prosthetic Devices or Brace: No Comments Mobility Comments Logroll to R side MaxA with max cues for sequencing. Supine to sit MaxA for uprighting trunk. STS with FWW ModA with cues for pushing from bed. She ambulates ~15' in the room CGA/Ida with FWW. Sit to supine into bed MaxA with max cues. Pt was left in bed, all needs met. Gait Assessment Gait Gait Assistance Required: Contact Guard Assist,Minimum Assistance,1 Person Assist Distance (Feet) 15 Able to Maintain Weight Bearing Status Yes During Gait Assistive Devices Assistive Device Gait Belt,Front Wheeled Walker Gait Deviations General Gait Pattern Antalgic,Decreased Stride Length,Decreased Feet Clearance,Step-to Gait Factors Limiting Gait Function Factors Limiting Gait Function Decreased Activity Tolerance, Decreased Strength,Difficulty Following Directions,Limited Range of Motion,Pain,Poor Balance,Poor Safety Awareness PT-Balance Assessment Sitting Balance and Reactions Static Sitting Balance Ability Fair Dynamic Sitting Balance Ability Fair Standing Balance and Reactions Static Standing Balance Ability Fair Dynamic Standing Balance Ability Fair Device Used FWW M5 PT-IP Objective Assessments Start: 07/18/24 17:32 Freq: NEEDED Status: Active Protocol: Document 07/18/24 15:10 AB (Rec: 07/18/24 17:51 AB [id number]) Orientation Orientation/Cognition Level of Alertness Alert Orientation Name,Situation Safety Awareness Decreased Safety Awareness Memory Description Short Term Impaired,Handkerchief Presser Impaired Comments slow to respond to questions Gross Range of Motion Lower Extremity ROM Assessment Within Functional Limits Strength Lower Extremity Strength Assessment Within Functional Limits Sensation Assessment Sensation Gross Sensation WNL Muscle Tone Muscle Tone WNL Yes M6 PT-IP Treatment Start: 07/18/24 17:32 Freq: NEEDED Status: Active Protocol: Document 07/21/24 15:15 TS (Rec: 07/21/24 15:22 [id number]) Physical Therapy Treatment Education Education Provided Precautions,Safety M7 PT-IP Assessment and Plan Start: 07/18/24 17:32 Freq: NEEDED Status: Active Protocol: Document 07/21/24 15:15 TS (Rec: 07/21/24 15:22 [id number]) PT Summary Assessment and Plan Potential Rehabilitation Potential Fair Summary Impairments Pain,ROM,Strength,Balance, Coordination,Sensation,Tone, Cognition,Bed Mobility, Transfers,Gait,Activity Tolerance Progress Towards Goals Slow Progress due to Pain,Slow Progress due to Activity Tolerance Assessment Summary Pt made some progress with her mobility but continues to be limited. She requires MaxA for all bed mobility. She progressed her gait to ~15' with decreased assist this session. She requires max cueing for all mobility with little carryover. PT is recommending SNF. Goals Bed Mobility Goal Standby Assistance Transfer Goal Standby Assistance,Front Wheeled Walker Gait Goal Standby Assistance,Front Wheel Walker Gait Distance 100 Other Goals improve bed mobility, transfers, ambulation using FWW ~ 200 ft mod I up/down 3 platform steps using FWW SBA up/down 12 steps R rail ascending sBA Days to Meet Goals 10 Frequency of Treatment Frequency Of Treatment Twice a Day Treatment Plan Physical Therapy Treatment Plan Bed Mobility Training,Transfer Training,Gait Training, Therapeutic Exercise,Balance Retraining,Post Op Education, Discharge Planning,Hot or Cold Pack,Neuromuscular Re-ed, Coordination Retraining,Manual Therapy Precautions Lumbar Precautions Log Roll,No Twisting,Limit Bending,Lifting Restriction of 10 lbs,Gait Belt above Incisional Area Recommendations To Nursing Amount of Assist Needed 2 Person Assist Discharge Recommendations PT Discharge Recommendations SNF Rehab Transportation Needs at Discharge Wheelchair/Cabulance
--- NOTE | 2024-07-21 19:45 | PC.NURSE ---
Pt had a difficult time during the shift with adequate pain control. Pain was crying in pain several times during the shift due to pain. Pt talked to the the daughter on the phone during the shift. This RN had two telephone calls with the pt's daughter about the pt's pain control and generalized anxiety. When the pt's daughter visited today, the daughter stated that she was actively in narcotic rehab and made the statement: I think I need to be here when Mom gets her oxycodone to make sure she's not getting cheated or feel like she's being cheated. Mom is worried that she's not getting her pain meds because one of the nurses said that she was confused and demented. This RN watched the pt swallow every medication due to concern that the the pt's daughter might try to divert pt's narcotics. This RN showed the pt the pill wrapped in the wrapper and then directly would place the narcotic, oxycodone, into the pill cup so the pt knew she was getting the medication after the pt stated multiple times: painter maintenance refused to give me any pain medication last night due to my memory.
[2024-07-22] VITALS: BP 137/52; PULSE 88; RESP 20; TEMP 35.9; O2SAT 95
[2024-07-22] MEDS: ACETAMINOPHEN 325 MG TABLET 650 MG PO ×2 (00:13→06:17)
[2024-07-22] MEDS: OXYCODONE IR 5 MG TABLET PO ×3 (01:51→08:21)
[2024-07-22] MEDS: methocarbamoL 500 MG TABLET PO (03:48)
[2024-07-22 06:00] VITALS: BP 145/60; PULSE 101; RESP 20; TEMP 36.1; O2SAT 95
[2024-07-22] MEDS: PANTOPRAZOLE DR 20 MG TABLET PO (06:17)
[2024-07-22 08:00] VITALS: BP 145/60; PULSE 82; TEMP 36.2; O2SAT 94
[2024-07-22 08:20] VITALS: BP 145/60; PULSE 82
[2024-07-22] MEDS: VENLAFAXINE ER 75 MG CAP 225 MG PO (08:20)
[2024-07-22] MEDS: lisinopriL 10 MG TABLET PO (08:20)
[2024-07-22] MEDS: TAMSULOSIN 0.4 MG CAPSULE PO (08:20)
[2024-07-22] MEDS: PROPRANOLOL 10 MG TABLET PO (08:20)
[2024-07-22] MEDS: GABAPENTIN 300 MG CAPSULE 600 MG PO (08:20)
[2024-07-22] MEDS: DOCUSATE 100 MG CAPSULE PO (08:21)
--- NOTE | 2024-07-22 08:53 | CM.DPNOTE ---
Addendum entered by GISELA Saldana 07/22/24 11:05: TENNIS RACKET REPAIRER right faxed signed dc summary to [facility] Addendum entered by GISELA Saldana 07/22/24 09:02: TENNIS RACKET REPAIRER placed med list/scripts/PASRR in chart. Original Note: DCP note TENNIS RACKET REPAIRER reviewed EMR Per chart review, plan to dc to [facility] today Confirmed with Danni at , transport scheduled for 1130. TENNIS RACKET REPAIRER updated PROFESSOR OF SOCIOLOGY/RN. gave RN report number. RN kindly agreed to call ortho surgeon to update on dc time and ask questions about cadet for dc. TENNIS RACKET REPAIRER faxed copies of PASRR, med list, dc order, and scripts to . dc sum pending. TENNIS RACKET REPAIRER met with pt in room. Answered questions to best of ability. pt in agreement with plan. P: dc to [facility] at 11:30. need to send dc sum to when available. Will continue to follow closely GISELA Saldana
--- NOTE | 2024-07-22 10:48 | PC.NURSE ---
Addendum entered by Dayanara Reynolds R.N. 07/22/24 11:53: Patient and adult daughter agreeable to discharge plan. IV absent. Pt able to void (incontinent) in brief, 2PA to BSC. Pt requests daughter to take cane and armstrong. This RN attempted to call daughter to request her to pickling operator these personal items. Report called to [facility] at 1200. Original Note: On-call orthopedic provider Dr. Mcmillan contacted by this RN with questions regarding cadet catheter. Provider okayed removal of the cadet catheter. Cadet removed at 0900. Pt declines urge to void at 1030. Care ongoing.
--- NOTE | 2024-07-22 10:50 | PM.DS.1 ---
History of Present Illness History of Present Illness Date Patient Seen: 07/22/24 Time Patient Seen: 10:50 Chief complaint: Translam Intrbody Fus./Laminotomy -Robot Narrative: Patient is status post a lumbar spinal fusion with Dr. De Jesus on the . Discharge Providers Provider Date of admission: 07/18/24 06:17 Discharge Date: 07/22/24 Primary care physician: Aisha Henry DO Consults: 07/18/24 12:06 Consult to Occupational Therapy Evaluate & Treat Comment: Physician Instructions: Evaluate and treat Consult to Physical Therapy Evaluate & Treat Comment: Physician Instructions: Evaluate and Treat 07/20/24 07:27 Consult to Discharge Planning Routine Comment: POD# 2, needs SNF Discharge provider: Randolph Mcmillan MD Summary Hospital Course Discharge Diagnosis: Lumbar spinal stenosis status post decompression and lumbar fusion on the 18 of July. Hospital Course: Patient was admitted after surgery and underwent physical therapy and pain management. Status at Discharge Cognitive/behavioral status at discharge: oriented Functional status at discharge: uses cane/walker Overall status at discharge: patient is progressing back to baseline Time Spent with Patient Time spent: Less than 30 minutes Exam Vital Signs (past 8 hours): - 07/22/24 06:00 07/22/24 07:00 07/22/24 08:00 Temperature 97 F L 97.1 F L Pulse Rate 101 H 82 Respiratory Rate 20 Blood Pressure 145/60 H 145/60 H Pulse Oximetry 95 94 Oxygen Delivery Method Room Air Oxygen Flow Rate 1 1 07/22/24 08:20 Temperature Pulse Rate 82 Respiratory Rate Blood Pressure 145/60 H Pulse Oximetry Oxygen Delivery Method Oxygen Flow Rate Fraction of Inspired Oxygen 24 SaO2/FiO2 Ratio 408 Oxygen Delivery Method Room Air Oxygen Flow Rate 1 Narrative Exam Narrative: Dressings clean and dry. No sign of any discharge. Positive dorsiflexion and plantar flexion of the toes and ankle. Nontender to palpation to the posterior aspect of the calves bilaterally. Palpable pedal pulses. 5/5 strength in dorsiflexion and plantar flexion. Objective Labs 07/19/24 04:30 [facility] Medical History HTN (hypertension) Tachycardia Shingles (~2022) Chronic back pain Cervical spine disease Hearing loss Thyroid nodule Anxiety Yeast infection Yeast infection of the vagina GERD (gastroesophageal reflux disease) Paroxysmal atrial fibrillation (~2014) Neuropathy DJD (degenerative joint disease) Arthritis Osteoarthritis Hypothyroidism Depression Laceration of scalp Surgical History History of total right hip arthroplasty (09/2023) 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 Brother Diabetes mellitus Social History household members: spouse and children Smoking Status: Never smoker alcohol intake: current Discharge Assessment & Plan Assessment and Plan Assessment: Patient doing well after a lumbar decompression and fusion. Patient will be discharged to a assisted facility. Plan of Treatment: Transfer to a assisted facility. Discharge Plan Discharge Plan Patient Disposition: SNF Transfer to: [facility] Discharge orders & Medications Prescriptions: New methocarbamol 500 mg Tablet 500 mg PO TID PRN (Reason: Muscle Spasm) Qty: 30 0RF acetaminophen 325 mg Tablet 650 mg PO Q6H Qty: 90 0RF tamsulosin [Flomax] 0.4 mg Capsule 0.4 mg PO DAILY Qty: 7 0RF ondansetron 4 mg Tablet,Disintegrating 4 mg sublingual Q6HR PRN (Reason: nausea and vomiting) Qty: 30 0RF oxycodone 5 mg Tablet 5 mg PO Q4-6H PRN (Reason: Pain, Moderate (4-6)) Qty: 40 0RF polyethylene glycol 3350 17 gram Powder In Packet 17 g PO DAILY PRN (Reason: Constipation) Qty: 100 0RF Continued gabapentin 300 mg capsule 600 mg PO TID Qty: 180 1RF venlafaxine 75 mg capsule,extended release 24hr 225 mg PO DAILY Qty: 90 2RF lisinopril 10 mg tablet 10 mg PO DAILY Qty: 30 0RF propranolol 10 mg tablet 10 mg PO BID Qty: 60 0RF esomeprazole magnesium [Nexium] 20 mg Capsule,Delayed Release(Dr/Ec) 20 mg PO DAILY Discontinued meloxicam 15 mg tablet 15 mg PO DAILY Qty: 30 3RF Follow up/Referrals: Mateusz De Jesus MD [Physician] - 08/02/24 1:00 pm (Follow up w/ Korin Smith PA-C, at [facility] in [place].) Aisha Henry DO [Primary Care Provider] - Diet/Activity/Treatments Diet: Diet as Tolerated Activity: No deep bending or twisting at the waist. No lifting more than 10 pounds. Skin/Wound/Dressing Care Report to your healthcare provider any signs of infection, such as:: chills, fever, night sweats, unusual drainage and unusual redness Dressing: May shower. Keep dressings as dry as possible. If dressings become wet or dirty, may remove and replace with clean, dry gauze. No bathing or otherwise soaking incisions. Do not apply any creams, lotions, or ointments to incisions. Visit Report/Discharge Packet Instructions: DI for Prescription Opioid Use, DI for Transforaminal Lumbar Interbody Fusion Stand Alone Forms: Patient Portal/API, Surgery Discharge Discharge Data Primary Care Provider: Aisha Henry VTE Deep Vein Thrombosis/Pulmonary Embolism Present on Admission: No
== END 2024-07-22 11:45 | DRG 402 ==
PROVIDERS: Physician Assistant; Admitting Provider Orthopaedic Surgery Orthopaedic Surgery of the Spine; PCP Family Medicine; Referring Provider Orthopaedic Surgery Orthopaedic Surgery of the Spine; Visit Provider Orthopaedic Surgery Orthopaedic Surgery of the Spine
PROC: 0SG00AJ Fusion of Lumbar Vertebral Joint with Interbody Fusion Device, Posterior Approach, Anterior Column, Open Approach (ICD-10-PCS; principal; 2024-07-18 07:45)
DX: M48.061 Spinal stenosis, lumbar region without neurogenic claudication (principal); M51.16 Intervertebral disc disorders with radiculopathy, lumbar region; R33.9 Retention of urine, unspecified; F32.A Depression, unspecified; I10 Essential (primary) hypertension; R41.0 Disorientation, unspecified; K21.9 Gastro-esophageal reflux disease without esophagitis; Z98.1 Arthrodesis status
CPT/HCPCS: 36415; 71045; 72100; 76000; 81001; 85014; 85018; 93005; 97116; 97162; 97165; 97530; C9290; J0171; J0330; J0690; J1100; J1171; J2250; J2405; J2704; J3010; J3410

== ENCOUNTER 2024-07-23 02:57 | Emergency (ER) | payer MEDICARE, SELFPAY ==
[2024-07-18 12:11] VITALS: BMI 29.5
[2024-07-23 03:01] VITALS: PULSE 89; O2SAT 98
--- NOTE | 2024-07-23 03:01 | ED.GENADULT ---
HPI - General Adult General Chief complaint: Urogenital-Female Stated complaint: Difficulty urinating Time Seen by Provider: 07/23/24 02:58 History of Present Illness HPI narrative: 78-year-old female had spinal fusion surgery 07/18/2024 Dr. Liza sanders at [facility], was discharged on 07/22/2024 a proximally 11:00 a.m., sent to rehab facility nearby [facility], unfortunately there she had not receive pain medication until 8:00 p.m. per family's report to nursing at time of triage. Referred for facility concerned that she might not be urinating. Patient is wearing diapers. She has a wet diaper here. She also reports that she has been defecating. She is able to move her legs well, no neurological deficits. She would like pain control, requests injectable pain medication Related Data Home Medications Medication Instructions Recorded Confirmed esomeprazole magnesium 20 mg 20 mg PO DAILY 07/18/24 07/18/24 capsule,delayed release (Nexium) Previous Rx's Medication Instructions Recorded gabapentin 300 mg capsule 600 mg (2 x 300 mg) PO TID #180 06/11/24 caps lisinopril 10 mg tablet 10 mg PO DAILY #30 tabs 07/03/24 propranolol 10 mg tablet 10 mg PO BID #60 tabs 07/03/24 venlafaxine 75 mg capsule,extended 225 mg (3 x 75 mg) PO DAILY #90 07/03/24 release 24 hr caps acetaminophen 325 mg tablet 650 mg (2 x 325 mg) PO Q6H #90 tabs 07/21/24 methocarbamol 500 mg tablet 500 mg PO TID PRN Muscle Spasm #30 07/21/24 tabs ondansetron 4 mg disintegrating 4 mg sublingual Q6HR PRN nausea 07/21/24 tablet and vomiting #30 tabs oxycodone 5 mg tablet 5 mg PO Q4-6H PRN Pain, Moderate 07/21/24 (4-6) #40 tabs polyethylene glycol 3350 17 gram 17 g PO DAILY PRN Constipation 07/21/24 oral powder packet #100 ea tamsulosin 0.4 mg capsule (Flomax) 0.4 mg PO DAILY #7 caps 07/21/24 Allergies Allergy/AdvReac Type Severity Reaction Status Date / Time Sulfa (Sulfonamide Allergy Intermediate RASH Verified 07/18/24 06:49 Antibiotics) [SULFA (SULFONAMIDE ANTIBIOTICS)] oxcarbazepine AdvReac Intermediate muscle Verified 07/18/24 06:49 spasms Review of Systems Review of Systems Narrative: see HPI Patient History Medical History HTN (hypertension) Tachycardia Shingles (~2022) Chronic back pain Cervical spine disease Hearing loss Thyroid nodule Anxiety Yeast infection Yeast infection of the vagina GERD (gastroesophageal reflux disease) Paroxysmal atrial fibrillation (~2014) Neuropathy DJD (degenerative joint disease) Arthritis Osteoarthritis Hypothyroidism Depression Laceration of scalp Surgical History History of total right hip arthroplasty (09/2023) 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 Brother Diabetes mellitus Social History household members: spouse and children Smoking Status: Never smoker alcohol intake: current Smoking Status: Never smoker alcohol intake frequency: a few times a week Substance Use Type: does not use Exam Narrative Exam Narrative: GENERAL: Well-developed patient, in mild distress. HEAD: Atraumatic. Normocephalic. EYES: Pupils equal round and reactive. Extraocular motions intact. No scleral icterus. No injection or drainage. ENT: Nose without bleeding, purulent drainage. Throat without erythema, tonsillar hypertrophy or exudate. Airway patent. NECK: Trachea midline. Non tender CARDIOVASCULAR: Regular rate and rhythm without murmurs, gallops, or rubs. RESPIRATORY: Clear to auscultation. Breath sounds equal bilaterally. No wheezes, rales, or rhonchi. GASTROINTESTINAL: Abdomen soft, non-tender, nondistended. EXTREMITIES: No edema or joint tenderness. BACK: Nontender without deformity or crepitance. No flank tenderness. Mid upper lumbar area dressing in place from recent surgery, no obvious redness or swelling around the dressing. Dressing was left intact. NEURO: AOx3. Moves both legs, able to lift 45? right leg and left leg. No gross motor deficits. SKIN: No rash or erythema of visible areas Initial Vital Signs Initial Vital Signs: Vital Signs Pulse Rate 89 07/23/24 03:01 Pulse Oximetry 98 07/23/24 03:01 Course Orders Ordered: Discontinued Medications Hydromorphone HCl (Hydromorphone 1 Mg Inj) 1 mg IM NOW ONE Stop: 07/23/24 04:45 Last Admin: 07/23/24 05:09 Dose: 1 mg Documented By: Ondansetron HCl (Ondansetron 4 Mg Odt) 4 mg SL NOW ONE Stop: 07/23/24 04:45 Last Admin: 07/23/24 05:04 Dose: 4 mg Documented By: Oxycodone HCl (Oxycodone Ir 5 Mg Tablet) 5 mg PO NOW ONE Stop: 07/23/24 05:53 Last Admin: 07/23/24 05:59 Dose: 5 mg Documented By: NKECHI Vital Signs Vital signs: Vital Signs - 8 hr 07/23/24 03:01 07/23/24 03:02 07/23/24 03:02 Temperature Pulse Rate 89 89 Respiratory Rate Blood Pressure 169/79 H Pulse Oximetry 98 98 Oxygen Delivery Method 07/23/24 03:07 07/23/24 06:47 Temperature 98.7 F 98.0 F Pulse Rate 88 59 L Respiratory Rate 18 18 Blood Pressure 169/79 H 170/68 H Pulse Oximetry 97 95 Oxygen Delivery Method Room Air Medical Decision Making [facility] Narrative Medical decision making narrative: 78-year-old female with recent lumbar surgery 07/18/2024, discharged 07/22/2024 yesterday morning, to rehab facility [facility], reported delay in receiving oral pain medications, here predominantly for pain control, requesting injectable pain medication. Also apparently there is a facility concerned that she has not urinating. However she has wearing a diaper and is urinating, has urine in her diaper. She is also reporting that she is having bowel movements, no constipation, no trouble with defecation, no incontinence of stool. IM Dilaudid dose, oral dissolvable Zofran. Return back to [facility] rehab facility for scheduled postop pain control and other continued postsurgical rehab plan EMS transfer back to [facility] [address]. Discharge Plan Departure Patient Disposition: Home Clinical Impression: Back pain, History of lumbar surgery Activity Restrictions/Additional Instructions: Recent lumbar surgery 07/18/2024, discharged on 07/22/24 morning, some delay in obtaining first [facility] rehab facility oral pain medication, predominantly here for pain control requesting injectable pain medication. Intramuscular Dilaudid dose given, with oral dissolvable Zofran to control nausea. Further control measures with regular scheduled postoperative pain medications per [facility] admitting orders. Rehab facility concern that patient might not be urinating, however in diaper here seems to be urinating just fine. Bladder scan with very low volume, no overflow incontinence. Patient reports she is having bowel movements. Return to [facility] rehab facility for further postoperative care Prescriptions: No Action gabapentin 300 mg capsule 600 mg PO TID Qty: 180 1RF venlafaxine 75 mg capsule,extended release 24hr 225 mg PO DAILY Qty: 90 2RF lisinopril 10 mg tablet 10 mg PO DAILY Qty: 30 0RF propranolol 10 mg tablet 10 mg PO BID Qty: 60 0RF esomeprazole magnesium [Nexium] 20 mg Capsule,Delayed Release(Dr/Ec) 20 mg PO DAILY methocarbamol 500 mg Tablet 500 mg PO TID PRN (Reason: Muscle Spasm) Qty: 30 0RF acetaminophen 325 mg Tablet 650 mg PO Q6H Qty: 90 0RF tamsulosin [Flomax] 0.4 mg Capsule 0.4 mg PO DAILY Qty: 7 0RF ondansetron 4 mg Tablet,Disintegrating 4 mg sublingual Q6HR PRN (Reason: nausea and vomiting) Qty: 30 0RF oxycodone 5 mg Tablet 5 mg PO Q4-6H PRN (Reason: Pain, Moderate (4-6)) Qty: 40 0RF polyethylene glycol 3350 17 gram Powder In Packet 17 g PO DAILY PRN (Reason: Constipation) Qty: 100 0RF Referrals: Aisha Henry DO [Primary Care Provider] - Stand Alone Forms: Patient Portal/API/Survey
[2024-07-23 03:02] VITALS: BP 169/79; PULSE 89; O2SAT 98
[2024-07-23 03:07] VITALS: BP 169/79; PULSE 88; RESP 18; TEMP 37.1; O2SAT 97; BMI 30.4
--- NOTE | 2024-07-23 03:20 | PC.NURSE ---
Small amount of urine with brief change.
--- NOTE | 2024-07-23 03:25 | PC.NURSE ---
Pt sent from [facility] rehab facility with concerns with urination. Pt reports only issue is with pain management
--- NOTE | 2024-07-23 04:03 | PC.NURSE ---
Call to [facility] due to pt complaint that they are not giving her pain medication relief. Documentation from facility verified that pt had Oxycodone as ordered. Last dose 07/23/24 @ 0004. Nurse at [facility] states that from day shift they had no documentation of patient voiding. They were concerned that since having cadet removed post surgery she has not voided. Report from [facility] Acute care team is that pt did void 2 hours after cadet catheter removal. Upon arrival pt stated that she is urinating but in her brief.
[2024-07-23] MEDS: ONDANSETRON 4 MG ODT SL (05:04)
[2024-07-23] MEDS: HYDROMORPHONE 1 MG INJ IM (05:09)
--- NOTE | 2024-07-23 05:32 | PC.NURSE ---
Complete bed change with brief change. Urine only no BM.
[2024-07-23] MEDS: OXYCODONE IR 5 MG TABLET PO (05:59)
[2024-07-23 06:47] VITALS: BP 170/68; PULSE 59; RESP 18; TEMP 36.7; O2SAT 95
== END 2024-07-23 07:06 | disposition home or self-care (01) ==
PROVIDERS: Emergency Provider Emergency Medicine; PCP Family Medicine
DX: Z98.890 Other specified postprocedural states (principal); M54.9 Dorsalgia, unspecified
CPT/HCPCS: 51798; 96372; 99283; J1171

== ENCOUNTER 2024-09-28 17:09 | Emergency (ER) | payer MEDICARE, OTHER, SELFPAY ==
[2024-07-18 12:11] VITALS: BMI 29.5
[2024-09-28] VITALS (19 sets, daily range): BP systolic 126–152; BP diastolic 59–79; PULSE 90–105; RESP 14–28; TEMP 37.8–38.2; O2SAT 95–99; BMI 29.6
--- NOTE | 2024-09-28 17:33 | DI.RAD.S_ITS ---
PROCEDURE: XR CHEST 1V INDICATIONS: suspected sepsis TECHNIQUE: One view of the chest was acquired. COMPARISON: [facility], CR, XR CHEST 1V, 07/19/2024, 18:26. FINDINGS: Surgical changes and devices: Cervical fixation plate. Lungs and pleura: Lungs are clear. No pleural effusions or pneumothorax. Mediastinum: Mediastinal contours appear normal. Heart size is mildly prominent. Bones and chest wall: No suspicious bony lesions. Overlying soft tissues appear unremarkable. IMPRESSION: No acute pulmonary process. Dictated by: Mansi Fregoso M.D. on 09/28/2024 at 18:38 Approved by: Mansi Fregoso M.D. on 09/28/2024 at 18:38
--- NOTE | 2024-09-28 17:59 | EKG_ITS ---
[address] [address] Test Date: 2024-09-28 Pat Name: Jessica Garrison Department: [facility] Room: Gender: Female [employer] Water: RAMON : 1945 Requested By: Order Number: [id number] Reading MD: Neftaly Falk MD Measurements Intervals Novelty Rate: 92 P: 58 MT: 150 QRS: 14 QRSD: 78 T: 21 QT: 330 QTc: 408 Interpretive Statements Normal sinus rhythm Electronically Signed On 09-30-2024 8:46:58 PST by Neftaly Falk MD
[2024-09-28 18:03] LABS: Add Manual Diff / Slide Review NO; Basophils Absolute Auto 100 /uL (0-100); Basophils Percent Auto 0.5 % (0-2); Eosinophils Absolute Auto 100 /uL (0-450); Eosinophils Percent Auto 0.5 % (2-4); Hematocrit 31.5 % (36-46); Hemoglobin 10.3 g/dL (12.0-16.0); Lymphocytes Absolute Auto 1800 /uL (1100-4500); Lymphocytes Percent Auto 15.2 % (25-40); Mean Corpuscular HGB Conc 32.6 % (30-36); Mean Corpuscular Hemoglobin 26.4 PG (26-34); Mean Corpuscular Volume 80.8 fL (80-100); Monocytes Absolute Auto 1200 /uL (0-900); Monocytes Percent Auto 10.5 % (3-14); Neutrophils Absolute Auto 8500 /uL (1500-7000); Neutrophils Percent Auto 73.3 % (50-75); Platelet Count 411 X10^3/uL (150-400); Red Cell Distribution Width 18.2 % (11.6-14.8); White Blood Cell Count 11.6 X10^3/uL (4.5-11.0)
--- NOTE | 2024-09-28 18:06 | DI.RAD.S_ITS ---
PROCEDURE: XR LUMBAR SPINE 2-3V INDICATIONS: S/P fusion with obvious cellulitis and abscess TECHNIQUE: 3 views of the lumbar spine were acquired. COMPARISON: [facility], CR, XR LUMBAR SPINE 2-3V, 07/18/2024, 10:34. [facility] [place], CR, XR LUMBAR SPINE 2 OR 3 VIEWS, 09/04/2024, 13:51. FINDINGS: Bones: 5 [id number] vertebrae are present. There is normal bony alignment. No vertebral body compression fractures. No suspicious bony lesions. Bilateral hip arthroplasties as well as fusion the lumbar spine from L3 through S1. Intervertebral prosthetic disc is present at L3-4. Hardware is intact without hardware fracture or periprosthetic lucency to suggest loosening. Alignment is stable. Severe disc and foraminal narrowing are present L5-S1 with prominent foraminal narrowing also present at L3-4. Soft tissues: Overlying bowel gas pattern is normal. No suspicious soft tissue calcifications. IMPRESSION: Lumbar fusion as above. Multilevel degenerative changes. Dictated by: Mansi Fregoso M.D. on 09/28/2024 at 19:16 Approved by: Mansi Fregoso M.D. on 09/28/2024 at 19:17
--- NOTE | 2024-09-28 18:06 | ED_ITS ---
HPI - Wound/Laceration General Chief Complaint: Wound/Laceration Stated Complaint: infection at surgical site, sx on 07/18 Time Seen by Provider: 09/28/24 17:55 Source: patient Mode of arrival: Family Vehicle History of Present Illness HPI narrative: Patient was an 79-year-old female. Not on anticoagulation. Had a lumbar spinal fusion on July 18, [address] Espino at [facility]. Patient reports that the surgery went well. She has been recovering well. Sometime over the past several days/week they have noticed increased discomfort in the lower back and then over the past couple days has noticed increased redness and now over the past hours has had quite a bit of drainage from the area. No fevers. Patient does report some weakness in her lower extremities but has been ambulatory. He has been no recent changes in medicine. No recent antibiotics. Related Data Home Medications Medication Instructions Recorded Confirmed esomeprazole magnesium 20 mg 20 mg PO DAILY 07/18/24 09/05/24 capsule,delayed release (Nexium) Previous Rx's Medication Instructions Recorded gabapentin 300 mg capsule 600 mg (2 x 300 mg) PO TID #180 06/11/24 caps venlafaxine 75 mg capsule,extended 225 mg (3 x 75 mg) PO DAILY #90 07/03/24 release 24 hr caps acetaminophen 325 mg tablet 650 mg (2 x 325 mg) PO Q6H #90 tabs 07/21/24 methocarbamol 500 mg tablet 500 mg PO TID PRN Muscle Spasm #30 07/21/24 tabs polyethylene glycol 3350 17 gram 17 g PO DAILY PRN Constipation 07/21/24 oral powder packet #100 ea tamsulosin 0.4 mg capsule (Flomax) 0.4 mg PO DAILY #7 caps 07/21/24 oxycodone 5 mg tablet 5 mg PO Q4-6H PRN Pain, Moderate 08/14/24 (4-6) #90 tabs ondansetron 4 mg disintegrating 4 mg sublingual Q6HR PRN nausea 08/20/24 tablet and vomiting #30 tabs lisinopril 10 mg tablet 10 mg PO DAILY #30 tabs 08/23/24 promethazine 25 mg tablet 25 mg PO TID PRN nausea and 08/28/24 vomiting #90 tabs propranolol 10 mg tablet 10 mg PO BID #60 tabs 09/21/24 Allergies Allergy/AdvReac Type Severity Reaction Status Date / Time Sulfa (Sulfonamide Allergy Intermediate RASH Verified 09/28/24 17:28 Antibiotics) [SULFA (SULFONAMIDE ANTIBIOTICS)] oxcarbazepine AdvReac Intermediate muscle Verified 09/28/24 17:28 spasms Review of Systems Review of Systems ROS Unobtainable: All systems reviewed & are unremarkable except as noted in HPI and below Patient History Medical History DM2 (diabetes mellitus, type 2) HTN (hypertension) Tachycardia Shingles (~2022) Chronic back pain Cervical spine disease Hearing loss Thyroid nodule Anxiety Yeast infection Yeast infection of the vagina GERD (gastroesophageal reflux disease) Paroxysmal atrial fibrillation (~2014) Neuropathy DJD (degenerative joint disease) Arthritis Osteoarthritis Hypothyroidism Depression Laceration of scalp Surgical History (Updated 08/07/24 @ 00:00 by ) History of total right hip arthroplasty (09/2023) 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 Brother Diabetes mellitus Social History household members: spouse and children Smoking Status: Never smoker alcohol intake: current Smoking Status: Never smoker alcohol intake frequency: a few times a week Exam Initial Vital Signs Initial Vital Signs: Vital Signs Temperature 100.1 F H 09/28/24 17:14 Pulse Rate 105 H 09/28/24 17:14 Respiratory Rate 16 09/28/24 17:14 Blood Pressure 129/59 L 09/28/24 17:14 Pulse Oximetry 98 09/28/24 17:14 Oxygen Delivery Method Room Air 09/28/24 17:14 Resp Effort & Inspection: normal respiratory effort and tachypneic Auscultation: clear to auscultation bilaterally Cardio Rate: regular rate Rhythm: regular rhythm Back/Spine/Pelvis Other: Discomfort with palpation of the lumbar spine. Skin Other: Patient has a large area of cellulitis and induration around the right-sided paraspinal surgical incision. The superior portion of this decision does have a small hole in the area there is purulent material coming from this area. There is a central area of ulceration. Neuro General: patient alert, patient awake, patient oriented x3 and moves all extremities Gait: normal gait Extrem Other: No gross deformities. Course Orders Ordered: ED Orders 09/28/24 17:33 XR chest 1V Stat EKG-12 Lead Stat RT Consult Eval and Treat NOW 09/28/24 17:43 Complete Blood Count AUTO DIFF Stat Comprehensive Metabolic Panel Stat Lactate (Lactic Acid) Stat Lipase Stat PTT Partial Thromboplastin Alexander Stat Procalcitonin Stat Prothrombin Time INR Stat Wound Culture and Gram Stain Stat 09/28/24 18:06 XR lumbar spine 2-3V Stat 09/28/24 18:08 Blood Culture Stat 09/28/24 19:09 Urine Culture Stat Urine Microscopic Stat Ondansetron HCl (Ondansetron 4 Mg/2 Ml Inj) 4 mg IV NOW PRN PRN Reason: Nausea And Vomiting Ondansetron HCl (Ondansetron 4 Mg Odt) 4 mg SL NOW PRN PRN Reason: Nausea And Vomiting Discontinued Medications Sodium Chloride (Normal Saline 0.9%) 1,000 mls @ 1,000 mls/hr IV BOLUS ONE Stop: 09/28/24 18:32 Last Infusion: 09/28/24 22:44 Dose: Infused Documented By: Admin: 09/28/24 18:08 Dose: 1,000 mls/hr Documented By: Vancomycin HCl (Vancomycin) 1,000 mg in 200 mls @ 200 mls/hr IV NOW ONE Stop: 09/28/24 19:04 Last Admin: 09/28/24 19:47 Dose: Not Given Documented By: ANABELLA Ceftriaxone Sodium 1,000 mg/ (Sodium Chloride) 100 mls @ 200 mls/hr IV NOW ONE Stop: 09/28/24 18:06 Last Infusion: 09/28/24 19:22 Dose: Infused Documented By: Admin: 09/28/24 18:12 Dose: 200 mls/hr Documented By: Vancomycin HCl 1,000 mg/ (Sodium Chloride) 250 mls @ 125 mls/hr IV NOW ONE Stop: 09/28/24 21:44 Last Infusion: 09/28/24 21:47 Dose: Infused Documented By: Admin: 09/28/24 19:46 Dose: 125 mls/hr Documented By: ANABELLA Lorazepam (Lorazepam 2 Mg/Ml Inj) 0.5 mg IV NOW ONE Stop: 09/28/24 20:16 Last Admin: 09/28/24 20:20 Dose: 0.5 mg Documented By: DEBBI Lorazepam (Lorazepam 2 Mg/Ml Inj) 0.5 mg IV NOW ONE Stop: 09/28/24 21:31 Last Admin: 09/28/24 21:34 Dose: 0.5 mg Documented By: DEBBI Vital Signs Vital signs: Vital Signs - 8 hr 09/28/24 17:14 09/28/24 17:37 09/28/24 18:00 Temperature 100.1 F H Pulse Rate 105 H 100 H 93 H Respiratory Rate 16 26 H Blood Pressure 129/59 L Pulse Oximetry 98 98 97 Oxygen Delivery Method Room Air 09/28/24 18:30 09/28/24 18:33 09/28/24 18:33 Temperature Pulse Rate 91 H 92 H Respiratory Rate 24 24 Blood Pressure 138/69 Pulse Oximetry 98 98 Oxygen Delivery Method 09/28/24 19:00 09/28/24 19:00 09/28/24 19:30 Temperature Pulse Rate 95 H 98 H Respiratory Rate 25 H 14 Blood Pressure 152/74 H Pulse Oximetry 98 Oxygen Delivery Method 09/28/24 20:00 09/28/24 20:25 09/28/24 20:25 Temperature Pulse Rate 101 H 96 H Respiratory Rate 16 16 Blood Pressure 134/59 L Pulse Oximetry 97 99 Oxygen Delivery Method 09/28/24 20:30 09/28/24 21:00 09/28/24 21:14 Temperature 100.7 F H Pulse Rate 94 H 98 H 104 H Respiratory Rate 16 26 H 14 Blood Pressure Pulse Oximetry 99 98 97 Oxygen Delivery Method 09/28/24 21:14 09/28/24 21:30 09/28/24 21:30 Temperature Pulse Rate 90 Respiratory Rate 24 Blood Pressure 147/68 H 142/66 H Pulse Oximetry 97 Oxygen Delivery Method 09/28/24 22:00 09/28/24 22:12 09/28/24 22:12 Temperature Pulse Rate 90 95 H Respiratory Rate 25 H Blood Pressure 140/59 L Pulse Oximetry 99 97 Oxygen Delivery Method 09/28/24 22:30 09/28/24 22:30 09/28/24 22:53 Temperature Pulse Rate 97 H Respiratory Rate 28 H Blood Pressure 126/79 126/61 Pulse Oximetry 96 Oxygen Delivery Method 09/28/24 22:53 Temperature Pulse Rate 95 H Respiratory Rate 26 H Blood Pressure Pulse Oximetry 95 Oxygen Delivery Method MDM - Wound/Laceration Lab Data Attestation: I reviewed the patient's lab results. 09/28/24 17:43 09/28/24 17:43 Labs: Lab Results 09/28/24 09/28/24 Range/Units 17:43 19:09 WBC 11.6 H (4.5-11.0) X10^3/uL RBC 3.90 L (4.0-5.2) X10^6/uL Hgb 10.3 L (12.0-16.0) g/dL Hct 31.5 L (36-46) % MCV 80.8 (80-100) fL MCH 26.4 (26-34) PG MCHC 32.6 (30-36) % RDW 18.2 H (11.6-14.8) % Plt Count 411 H (150-400) X10^3/uL Neut % (Auto) 73.3 (50-75) % Lymph % (Auto) 15.2 L (25-40) % Meade % (Auto) 10.5 (3-14) % Eos % (Auto) 0.5 L (2-4) % Baso % (Auto) 0.5 (0-2) % Neut # (Auto) 8500 H (4635-8356) /uL Lymph # (Auto) 1800 (1221-1835) /uL Meade # (Auto) 1200 H (0-900) /uL Eos # (Auto) 100 (0-450) /uL Baso # (Auto) 100 (0-100) /uL PT 11.5 (9.4-12.5) SECONDS INR 1.0 (0.9-1.3) APTT 32 (25.1-36.5) SECONDS Sodium 135 L (137-145) mmol/L Potassium 4.0 (3.4-5.1) mmol/L Chloride 102 (98-107) mmol/L Carbon Dioxide 28 (22-32) mmol/L BUN 11 (7-17) mg/dL Creatinine 0.74 (0.52-1.04) mg/dL Estimated GFR > 60 (>60) mL/min BUN/Creatinine Ratio 14.9 (6-22) Glucose 147 H (80-110) mg/dL Lactate 1.6 (0.7-2.1) mmol/L Calcium 9.6 (8.4-10.2) mg/dL Total Bilirubin 0.3 (0.2-1.3) mg/dL AST 24 (14-36) IU/L ALT 20 (<35) IU/L Alkaline Phosphatase 124 (38-126) U/L Total Protein 7.7 (6.3-8.2) g/dL Albumin 4.1 (3.5-5.0) g/dL Globulin 3.6 (1.7-4.1) g/dL Albumin/Globulin Ratio 1.1 (1.0-2.8) Lipase 33 (23-300) U/L Procalcitonin 0.079 (<0.5) ng/mL Urine RBC None seen (0-5/HPF) Urine WBC 10-30/hpf H (0-5/HPF) Ur Squamous Epith Cells 0-1 /hpf (0-5/HPF) Urine Bacteria Many (>30) H (None) Ur Culture Indicated? Specimen cultured Vol Urine Centrifuged 10ml (spun) Imaging Data Chest x-ray: Radiologist's Impression: PROCEDURE: XR CHEST 1V INDICATIONS: suspected sepsis TECHNIQUE: One view of the chest was acquired. COMPARISON: Located within [facility], XR CHEST 1V, 07/19/2024, 18:26. FINDINGS: Surgical changes and devices: Cervical fixation plate. Lungs and pleura: Lungs are clear. No pleural effusions or pneumothorax. Mediastinum: Mediastinal contours appear normal. Heart size is mildly prominent. Bones and chest wall: No suspicious bony lesions. Overlying soft tissues appear unremarkable. IMPRESSION: No acute pulmonary process. lumbar spine x-ray: Radiologist's Impression: PROCEDURE: XR LUMBAR SPINE 2-3V INDICATIONS: S/P fusion with obvious cellulitis and abscess TECHNIQUE: 3 views of the lumbar spine were acquired. COMPARISON: Located within [facility], XR LUMBAR SPINE 2-3V, 07/18/2024, 10:34. [facility] [place], , XR LUMBAR SPINE 2 OR 3 VIEWS, 09/04/2024, 13:51. FINDINGS: Bones: 5 [id number] vertebrae are present. There is normal bony alignment. No vertebral body compression fractures. No suspicious bony lesions. Bilateral hip arthroplasties as well as fusion the lumbar spine from L3 through S1. Intervertebral prosthetic disc is present at L3-4. Hardware is intact without hardware fracture or periprosthetic lucency to suggest loosening. Alignment is stable. Severe disc and foraminal narrowing are present L5-S1 with prominent foraminal narrowing also present at L3-4. Soft tissues: Overlying bowel gas pattern is normal. No suspicious soft tissue calcifications. IMPRESSION: Lumbar fusion as above. Multilevel degenerative changes. MDM Narrative Medical decision making narrative: Wound cultures were obtained. Blood cultures were obtained. Patient was given Rocephin and vancomycin. Has an obvious infection in the area with drainage of purulent material. Unfortunately Dr. espino is not operating in the local area any longer. I contacted his partner (he was not a spine surgeon) who recommended the patient be transferred to [facility]. Contacted multiple facilities in the local area that potentially have spine surgery availability however there were no beds available. I then discussed the case with Dr. Alves with spine at [facility] who accepts the patient for transfer. Patient was stable for transport. Discharge Plan Departure Patient Disposition: [facility] Clinical Impression: Post-operative infection Prescriptions: No Action gabapentin 300 mg capsule 600 mg PO TID Qty: 180 1RF venlafaxine 75 mg capsule,extended release 24hr 225 mg PO DAILY Qty: 90 2RF ondansetron 4 mg tablet,disintegrating 4 mg sublingual Q6HR PRN (Reason: nausea and vomiting) Qty: 30 5RF lisinopril 10 mg tablet 10 mg PO DAILY Qty: 30 0RF promethazine 25 mg tablet 25 mg PO TID PRN (Reason: nausea and vomiting) Qty: 90 0RF propranolol 10 mg tablet 10 mg PO BID Qty: 60 0RF oxycodone 5 mg tablet 5 mg PO Q4-6H PRN (Reason: Pain, Moderate (4-6)) Qty: 90 0RF esomeprazole magnesium [Nexium] 20 mg Capsule,Delayed Release(Dr/Ec) 20 mg PO DAILY methocarbamol 500 mg Tablet 500 mg PO TID PRN (Reason: Muscle Spasm) Qty: 30 0RF acetaminophen 325 mg Tablet 650 mg PO Q6H Qty: 90 0RF tamsulosin [Flomax] 0.4 mg Capsule 0.4 mg PO DAILY Qty: 7 0RF polyethylene glycol 3350 17 gram Powder In Packet 17 g PO DAILY PRN (Reason: Constipation) Qty: 100 0RF Referrals: Zeyad Cleary DO [Primary Care Provider] -
[2024-09-28] MEDS: SODIUM CHLORIDE 0.9% 1,000 ML 1000 ML IV (18:08)
[2024-09-28] MEDS: cefTRIAXone 1,000 MG in SODIUM CHLORIDE 0.9% 100 ML 200 MG IV (18:12)
[2024-09-28 18:17] LABS: Prothrombin Time 11.5 SECONDS (9.4-12.5)
[2024-09-28 18:20] LABS: PTT Partial Thromboplastin Tim 32 SECONDS (25.1-36.5)
[2024-09-28 18:22] LABS: Alanine Aminotransferase 20 IU/L (<35); Albumin 4.1 g/dL (3.5-5.0); Albumin Globulin Ratio 1.1 (1.0-2.8); Alkaline Phosphatase 124 U/L (38-126); Aspartate Aminotransferase 24 IU/L (14-36); BUN Creatinine Ratio 14.9 (6-22); Bilirubin Total 0.3 mg/dL (0.2-1.3); Blood Urea Nitrogen 11 mg/dL (7-17); Calcium 9.6 mg/dL (8.4-10.2); Carbon Dioxide 28 mmol/L (22-32); Chloride 102 mmol/L (98-107); Estimated Glomerular Filt Rate > 60 mL/min (>60); Globulin 3.6 g/dL (1.7-4.1); Glucose 147 mg/dL (80-110); HEMOLYSIS < 15 (0-50); Lactate (Lactic Acid) 1.6 mmol/L (0.7-2.1); Lipase 33 U/L (23-300); Sodium 135 mmol/L (137-145); Total Protein 7.7 g/dL (6.3-8.2)
[2024-09-28 18:39] LABS: Procalcitonin 0.079 ng/mL (<0.5)
[2024-09-28 19:31] LABS: Bacteria Urine Many (>30); Squamous Epithelial Cell Urine 0-1 /HPF (0-5/HPF); Urine Volume 10mL (spun); WBC Urine 10-30/HPF (0-5/HPF)
[2024-09-28 19:32] LABS: Culture Indicated Urine Specimen Cultured; RBC Urine None Seen (0-5/HPF)
[2024-09-28] MEDS: VANCOMYCIN 1,000 MG in SODIUM CHLORIDE 0.9% 250 ML 125 MG IV (19:46)
[2024-09-28] MEDS: LORazepam 2 MG/ML INJ 0.5 MG IV ×2 (20:20→21:34)
--- NOTE | 2024-09-28 23:31 | PC.NURSE ---
Care transferred to [facility] transport team
[2024-09-28] MEDS: ONDANSETRON 4 MG/2 ML INJ IV (23:43)
[2024-09-28] MEDS: MORPHINE 4 MG/ML INJ IV (23:43)
== END 2024-09-28 23:56 | disposition short-term general hospital (02) ==
PROVIDERS: Emergency Medicine; Emergency Provider Emergency Medicine; PCP Family Medicine
DX: T81.42XA Infection following a procedure, deep incisional surgical site, initial encounter (principal)
CPT/HCPCS: 36415; 71045; 72100; 80053; 81003; 81015; 83605; 83690; 84145; 85025; 85610; 85730; 87040; 87070; 87075; 87077; 87086; 87147; 87186; 87205; 93005; 93010; 96361; 96365; 96366; 96367; 96375; 96376; 99284; J0696; J2060; J2270; J2405

== ENCOUNTER → 2025-01-14 13:14 | Outpatient (CLI) | payer MEDICARE, OTHER, SELFPAY ==
[2024-07-18 12:11] VITALS: BMI 29.5
[2025-01-14 14:51] LABS: Add Manual Diff / Slide Review NO; Basophils Absolute Auto 0 /uL (0-100); Basophils Percent Auto 0.6 % (0-2); Eosinophils Absolute Auto 100 /uL (0-450); Eosinophils Percent Auto 1.8 % (2-4); Hemoglobin 10.3 g/dL (12.0-16.0); Lymphocytes Absolute Auto 1300 /uL (1100-4500); Mean Corpuscular HGB Conc 32.1 % (30-36); Mean Corpuscular Hemoglobin 26.4 PG (26-34); Monocytes Absolute Auto 300 /uL (0-900); Monocytes Percent Auto 6.5 % (3-14); Neutrophils Absolute Auto 3400 /uL (1500-7000); Neutrophils Percent Auto 66.1 % (50-75); Platelet Count 369 X10^3/uL (150-400); Red Blood Cell Count 3.91 X10^6/uL (4.0-5.2); Red Cell Distribution Width 16.2 % (11.6-14.8); White Blood Cell Count 5.2 X10^3/uL (4.5-11.0)
[2025-01-14 15:01] LABS: Hemoglobin A1C% w Est Avg Glu 6.9 % (4.0-6.0)
[2025-01-14 15:21] LABS: Alanine Aminotransferase 23 IU/L (<35); Albumin Globulin Ratio 1.6 (1.0-2.8); Alkaline Phosphatase 126 U/L (38-126); Aspartate Aminotransferase 25 IU/L (14-36); BUN Creatinine Ratio 23.5 (6-22); Bilirubin Total 0.2 mg/dL (0.2-1.3); Blood Urea Nitrogen 16 mg/dL (7-17); Carbon Dioxide 23 mmol/L (22-32); Chloride 102 mmol/L (98-107); Estimated Glomerular Filt Rate > 60 mL/min (>60); Globulin 2.5 g/dL (1.7-4.1); Glucose 274 mg/dL (70-99); HEMOLYSIS < 15 (0-50); Potassium 4.8 mmol/L (3.4-5.1); Sodium 135 mmol/L (137-145); Total Protein 6.5 g/dL (6.3-8.2)
[2025-01-14 15:53] LABS: TSH w/ Reflex to FT4 1.56 uIU/mL (0.47-4.68)
== END ==
PROVIDERS: PCP Family Medicine; Referring Provider Family Medicine; Visit Provider Family Medicine
DX: E03.9 Hypothyroidism, unspecified (principal); E11.9 Type 2 diabetes mellitus without complications
CPT/HCPCS: 36415; 80053; 83036; 84443; 85025

== ENCOUNTER → 2025-02-01 10:23 | Outpatient (CLI) | payer MEDICARE, OTHER, SELFPAY ==
[2024-07-18 12:11] VITALS: BMI 29.5
== END ==
PROVIDERS: PCP Family Medicine; Referring Provider Family Medicine; Visit Provider Physician Assistant
DX: S31.000D Unspecified open wound of lower back and pelvis without penetration into retroperitoneum, subsequent encounter (principal); M43.26 Fusion of spine, lumbar region; Z86.14 Personal history of Methicillin resistant Staphylococcus aureus infection; Z86.19 Personal history of other infectious and parasitic diseases; I10 Essential (primary) hypertension; F41.1 Generalized anxiety disorder; F32.A Depression, unspecified; R00.0 Tachycardia, unspecified; I48.91 Unspecified atrial fibrillation; E03.9 Hypothyroidism, unspecified; J45.909 Unspecified asthma, uncomplicated; B02.22 Postherpetic trigeminal neuralgia; M19.90 Unspecified osteoarthritis, unspecified site
CPT/HCPCS: 99203; 99213

== ENCOUNTER → 2025-03-26 10:09 | Outpatient (CLI) | payer MEDICARE, OTHER, SELFPAY ==
[2024-07-18 12:11] VITALS: BMI 29.5
== END ==
PROVIDERS: PCP Family Medicine; Referring Provider Family Medicine; Visit Provider Surgery
DX: B99.9 Unspecified infectious disease (principal); E11.622 Type 2 diabetes mellitus with other skin ulcer; L98.421 Non-pressure chronic ulcer of back limited to breakdown of skin; L08.9 Local infection of the skin and subcutaneous tissue, unspecified; J45.909 Unspecified asthma, uncomplicated; R60.0 Localized edema; Z86.19 Personal history of other infectious and parasitic diseases; M19.90 Unspecified osteoarthritis, unspecified site; F41.1 Generalized anxiety disorder; I48.0 Paroxysmal atrial fibrillation; F32.9 Major depressive disorder, single episode, unspecified; E03.9 Hypothyroidism, unspecified
CPT/HCPCS: 87070; 87147; 87205; 99213; 99214

== ENCOUNTER → 2025-04-02 11:11 | Outpatient (CLI) | payer MEDICARE, OTHER, SELFPAY ==
[2024-07-18 12:11] VITALS: BMI 29.5
== END ==
LOC: WC 11:13
PROVIDERS: PCP Family Medicine; Referring Provider Family Medicine; Visit Provider Surgery
DX: B99.9 Unspecified infectious disease (principal); L98.421 Non-pressure chronic ulcer of back limited to breakdown of skin; L08.9 Local infection of the skin and subcutaneous tissue, unspecified; E11.622 Type 2 diabetes mellitus with other skin ulcer
CPT/HCPCS: 97597

== ENCOUNTER → 2025-04-09 14:31 | Outpatient (CLI) | payer MEDICARE, OTHER, SELFPAY ==
[2024-07-18 12:11] VITALS: BMI 29.5
== END ==
LOC: WC 14:32
PROVIDERS: PCP Family Medicine; Referring Provider Family Medicine; Visit Provider Surgery
DX: Z09 Encounter for follow-up examination after completed treatment for conditions other than malignant neoplasm (principal); Z87.2 Personal history of diseases of the skin and subcutaneous tissue; L98.421 Non-pressure chronic ulcer of back limited to breakdown of skin; I10 Essential (primary) hypertension; E11.9 Type 2 diabetes mellitus without complications
CPT/HCPCS: 99212; 99213

== ENCOUNTER → 2025-04-25 13:01 | Outpatient (CLI) | payer MEDICARE, OTHER, SELFPAY ==
[2024-07-18 12:11] VITALS: BMI 29.5
[2025-04-25 14:09] LABS: Add Manual Diff / Slide Review NO; Hematocrit 33.4 % (36-46); Hemoglobin 11.0 g/dL (12.0-16.0); Lymphocytes Absolute Auto 1300 /uL (1100-4500); Mean Corpuscular HGB Conc 33.0 % (30-36); Mean Corpuscular Hemoglobin 27.4 PG (26-34); Mean Corpuscular Volume 83.1 fL (80-100); Platelet Count 363 X10^3/uL (150-400)
[2025-04-25 14:20] LABS: Hemoglobin A1C% w Est Avg Glu 7.6 % (4.0-6.0)
[2025-04-25 14:37] LABS: Alanine Aminotransferase 21 IU/L (<35); Albumin 4.3 g/dL (3.5-5.0); Albumin Globulin Ratio 1.5 (1.0-2.8); Alkaline Phosphatase 114 U/L (38-126); Blood Urea Nitrogen 24 mg/dL (7-17); Calcium 9.4 mg/dL (8.4-10.2); Carbon Dioxide 24 mmol/L (22-32); Chloride 103 mmol/L (98-107); Cholesterol 158 mg/dL (140-199); Estimated Glomerular Filt Rate > 60 mL/min (>60); Globulin 2.9 g/dL (1.7-4.1); Glucose 196 mg/dL (70-99); HDL Cholesterol 34 mg/dL (40-60); HEMOLYSIS < 15 (0-50); Potassium 4.7 mmol/L (3.4-5.1); Sodium 138 mmol/L (137-145); Total Protein 7.2 g/dL (6.3-8.2); Triglycerides 136 mg/dL (35-150)
== END ==
PROVIDERS: PCP Family Medicine; Referring Provider Family Medicine; Visit Provider Family Medicine
DX: E11.9 Type 2 diabetes mellitus without complications (principal); I10 Essential (primary) hypertension
CPT/HCPCS: 36415; 80053; 80061; 83036; 85025

== ENCOUNTER → 2025-05-28 13:04 | Outpatient (CLI) | payer MEDICARE, OTHER, SELFPAY ==
[2024-07-18 12:11] VITALS: BMI 29.5
--- NOTE | 2025-05-28 13:06 | DI.MRI.S_ITS ---
PROCEDURE: MR LUMBAR SPINE WO CON INDICATIONS: LE WEAKNESS, LUMBAR SURGERY X4 TECHNIQUE: Noncontrast sagittal T1 spin echo and T2 fast echo, sagittal STIR, and T2 fast spin echo through the lumbar spine. In cases with scoliosis, additional coronal T2 fast spin echo may be performed. COMPARISON: [facility], CT, CT LUMBAR SPINE WO CON, 06/11/2024, 13:21. [facility], MR, MR LUMBAR SPINE WO CON, 06/04/2023, 12:34. [facility], CR, XR LUMBAR SPINE 2-3V, 03/01/2025, 13:11. [facility] [place], CR, XR LUMBAR SPINE 2 OR 3 VIEWS, 12/03/2024, 15:17. FINDINGS: Image quality: There is artifact associated with the metallic hardware. This examination is limited by involuntary motion artifact. Alignment and Curvature: Mild levoconvex scoliotic curvature is noted. Bone Marrow: Marrow is of normal overall signal. No acute vertebral body compression fractures. Spinal Cord: Conus medullaris terminates at the L1-L2 level. Visualized cord demonstrates normal signal and size. Paraspinous Soft Tissues: No paravertebral masses. Extensive postoperative changes are seen, with bilateral pedicle screws L3 through S1. Disc spacers are seen at L3-L4, L4-L5, and at L5-S1. There has been removal of portions of the posterior elements. Bone grafting material is noted. T12-L1: Normal appearance. L1-L2: Moderate loss of disc height is seen. Loss of disc signal is seen. Reactive marrow endplate changes are seen, which are hyperintense on T1-weighted and T2- weighted imaging and most consistent with fatty metaplasia (Modic type II changes). Moderate disc bulge is seen, with protruding components into both subarticular regions. There is a superimposed central disc protrusion. Moderate facet joint hypertrophy is seen. There is moderate right-sided and at least moderate left-sided neural foraminal narrowing. There is a degree of compression seen upon the exiting left L1 nerve root. The previously seen mild central disc protrusion is slightly improved compared to 2022. L2-L3: Moderate loss of disc height is seen. Loss of disc signal is seen. Mild to moderate disc bulge is seen, which is eccentric to the left. There is a left subarticular disc protrusion. Moderate facet joint hypertrophy is seen. There is moderate left-sided and no right-sided neural foraminal narrowing. Mild central canal narrowing is seen. When comparison is made with the prior images, the degrees of degenerative narrowing are similar. L3-L4: Interval postoperative change can be seen at this level. Moderate generalized disc bulge is seen. There is a central/left disc protrusion, as on series 6 image 14. At least moderate facet hypertrophy is seen. There is moderate right-sided and mild left-sided neural foraminal narrowing. At least moderate central canal narrowing is seen, which is overall slightly improved compared to the prior. L4-L5: Mild to moderate disc bulge is seen, which is slightly eccentric to the left. Moderate facet joint hypertrophy is seen. There is mjpq-on-vjmfijap left-sided and no significant right-sided neural foraminal narrowing. The central canal is widely patent. When comparison is made with the prior images, these findings are similar. L5-S1: There are postoperative changes seen at this level. Mild generalized disc bulge is seen. There is at least moderate left-sided and moderate right-sided neural foraminal narrowing. The central canal is widely patent. When comparison is made with the prior images, these findings are similar. IMPRESSION: Extensive postoperative change can be seen, with extension of the postoperative hardware to now include L3 since the prior MRI. Mild regression of a central disc extrusion at L1-L2 compared to 2022. Dictated by: Gio Stacy M.D. on 05/28/2025 at 14:46 Approved by: Gio Stacy M.D. on 05/28/2025 at 14:53
== END ==
LOC: MRI 13:05
PROVIDERS: PCP Family Medicine; Referring Provider Physical Medicine & Rehabilitation; Visit Provider Physical Medicine & Rehabilitation
DX: M48.062 Spinal stenosis, lumbar region with neurogenic claudication (principal); M51.26 Other intervertebral disc displacement, lumbar region; Z98.1 Arthrodesis status; Z98.890 Other specified postprocedural states
CPT/HCPCS: 72148

== ENCOUNTER → 2025-05-29 13:24 | Outpatient (CLI) | payer MEDICARE, OTHER, SELFPAY ==
[2024-07-18 12:11] VITALS: BMI 29.5
== END ==
LOC: WC 13:26
PROVIDERS: PCP Family Medicine; Referring Provider Family Medicine; Visit Provider Surgery
DX: Z09 Encounter for follow-up examination after completed treatment for conditions other than malignant neoplasm (principal); Z87.2 Personal history of diseases of the skin and subcutaneous tissue; E11.9 Type 2 diabetes mellitus without complications; I10 Essential (primary) hypertension; I48.91 Unspecified atrial fibrillation; Z86.14 Personal history of Methicillin resistant Staphylococcus aureus infection
CPT/HCPCS: 99212; 99213

== ENCOUNTER → 2025-06-14 11:49 | Outpatient (CLI) | payer MEDICARE, OTHER, SELFPAY ==
[2024-07-18 12:11] VITALS: BMI 29.5
--- NOTE | 2025-06-14 11:52 | DI.MRI.S_ITS ---
PROCEDURE: MR CERVICAL SPINE WO CON INDICATIONS: neck pain, LUE paresthesia, hx C-spine surgery TECHNIQUE: Noncontrast sagittal T1 spin echo and T2 fast spin echo, sagittal STIR, foraminal oblique sagittal T2 fast spin echo, and axial gradient echo or T2 fast spin echo through the cervical spine. COMPARISON: [facility], , C-SPINE WITHOUT CONTRAST, 09/27/2016, 13:35. FINDINGS: Image quality: Excellent. Alignment and Curvature: There is mild C4 anterolisthesis. Bone Marrow: ACDF at C5-C7 with unremarkable appearance. No bone marrow edema. No suspicious focal lesion seen. Spinal Cord: Visualized spinal cord has normal size and signal. No cerebellar tonsillar herniation. Paraspinous Soft Tissues: No paravertebral masses. Prevertebral soft tissues are normal in thickness. C2-C3: Posterior osteophyte/disc bulge complex and uncinate process arthropathy. Mild right foraminal stenosis. C3-C4: There is posterior osteophyte/disc bulge complex and uncinate process and facet arthropathy. There is mild central canal narrowing as well as moderate bilateral foraminal stenosis. C4-C5: Posterior osteophyte/disc bulge complex and bilateral uncinate process and facet arthropathy. There is moderate right and [id number] left foraminal stenosis, mild central canal narrowing. C5-C6: There is uncinate process arthropathy with mild left foraminal stenosis C6-C7: There is uncinate process arthropathy with mild right and moos-sb-cnloebnr left foraminal stenosis. C7-T1: Posterior osteophyte/disc bulge complex and uncinate process arthropathy. There is [id number] bilateral foraminal stenosis IMPRESSION: 1. Unremarkable appearance of ACDF at C5-C7. No acute osseous lesions seen. 2. Mild multilevel degenerative changes as above are essentially stable. No new disc extrusion or significant central stenosis. Dictated by: Josue Fuller M.D. on 06/15/2025 at 17:02 Approved by: Josue Fuller M.D. on 06/15/2025 at 17:09
--- NOTE | 2025-06-14 12:27 | DI.RAD.S_ITS ---
PROCEDURE: XR CERVICAL SPINE 5V INDICATIONS: neck pain, LUE paresthesia, hx C-spine surgery TECHNIQUE: 5 views of the cervical spine acquired. COMPARISON: No prior x-ray C-spine for comparison. FINDINGS: Straightening of the normal cervical lordosis. Postoperative changes ACDF C5- C7. Moderate degenerative changes throughout the cervical spine with disc space narrowing, disc-osteophyte, uncovertebral and facet hypertrophic changes throughout the cervical spine. No radiographic evidence of fracture or subluxation. Probable neural foraminal narrowing most notably at C4-5, C5-6, C6-7. IMPRESSION: Degenerative changes as discussed above. Postoperative changes. If symptoms persist or worsen, or there is high clinical suspicion of cervical abnormality, MRI could be performed. Dictated by: Francisco Clemente M.D. on 06/14/2025 at 21:31 Approved by: Francisco Clemente M.D. on 06/14/2025 at 21:33
== END ==
LOC: MRI 11:50
PROVIDERS: PCP Family Medicine; Referring Provider Physical Medicine & Rehabilitation; Visit Provider Physical Medicine & Rehabilitation
DX: M47.812 Spondylosis without myelopathy or radiculopathy, cervical region (principal); M54.2 Cervicalgia; R20.2 Paresthesia of skin; Z98.890 Other specified postprocedural states; Z98.1 Arthrodesis status
CPT/HCPCS: 72050; 72141

== ENCOUNTER → 2025-08-02 14:12 | Outpatient (CLI) | payer MEDICARE, OTHER, SELFPAY ==
[2024-07-18 12:11] VITALS: BMI 29.5
[2025-08-02 15:05] LABS: Hematocrit 37.5 % (36-46); Hemoglobin 12.7 g/dL (12.0-16.0); Mean Corpuscular HGB Conc 33.9 % (30-36); Mean Corpuscular Hemoglobin 29.8 PG (26-34); Mean Corpuscular Volume 88.2 fL (80-100); Platelet Count 324 X10^3/uL (150-400)
[2025-08-02 15:29] LABS: Alanine Aminotransferase 25 IU/L (<35); Albumin 4.5 g/dL (3.5-5.0); Albumin Globulin Ratio 1.6 (1.0-2.8); Alkaline Phosphatase 102 U/L (38-126); Blood Urea Nitrogen 22 mg/dL (7-17); Calcium 9.8 mg/dL (8.4-10.2); Carbon Dioxide 23 mmol/L (22-32); Chloride 105 mmol/L (98-107); Cholesterol 164 mg/dL (140-199); Estimated Glomerular Filt Rate > 60 mL/min (>60); Globulin 2.9 g/dL (1.7-4.1); Glucose 173 mg/dL (70-99); HDL Cholesterol 46 mg/dL (40-60); HEMOLYSIS < 15 (0-50); Potassium 4.8 mmol/L (3.4-5.1); Sodium 141 mmol/L (137-145); Total Protein 7.4 g/dL (6.3-8.2); Triglycerides 113 mg/dL (35-150)
[2025-08-02 15:39] LABS: Hemoglobin A1C% w Est Avg Glu 6.1 % (4.0-6.0)
[2025-08-02 15:51] LABS: Lymphocytes Percent Manual 46.0 % (25-45); Monocytes Percent Manual 17.0 % (2-11); Neutrophils Absolute Manual 1728 /uL (3000-5900); RBC Morphology Normal Morphology; Segmented Neutrophils Percent 36.0 % (38-70); Total Cells Counted 100
[2025-08-02 15:52] LABS: Eosinophils Percent Manual 1.0 % (2-4)
[2025-08-02 16:00] LABS: TSH w/ Reflex to FT4 2.18 uIU/mL (0.47-4.68)
== END ==
PROVIDERS: PCP Family Medicine; Referring Provider Family Medicine; Visit Provider Family Medicine
DX: E11.9 Type 2 diabetes mellitus without complications (principal)
CPT/HCPCS: 80053; 80061; 83036; 84443; 85025